=== PATIENT | male | born 1990 | race Caucasian/White ===

== ENCOUNTER 2022-07-25 13:16 | Inpatient (IN) | payer OTHER, SELFPAY ==
[2022-07-25] VITALS (7 sets, daily range): BP systolic 101–103; BP diastolic 54–60; PULSE 98–107; RESP 16–21; TEMP 36.4–36.6; O2SAT 96–100; BMI 23.5
--- NOTE | ~2022-07-25 | XR_ITS ---
EXAMINATION: XR chest 1V portable DATE: 07/27/2022 06:27 INDICATION: Edema. TECHNIQUE: A single frontal view of the chest was obtained. COMPARISON: CT abdomen and pelvis 07/25/2022 FINDINGS: There is mild atelectasis at the lung bases. There is a small left pleural effusion. No pne umothorax. The heart size is normal. IMPRESSION: 1. Mild atelectasis at the lung bases. 2. Small left pleural effusion. Reviewed, dictated and finalized at location A. TAL MEDIA MANAGER
--- NOTE | ~2022-07-25 | CT_ITS ---
EXAMINATION: CT abdomen pelvis wo con DATE: 07/25/2022 15:25 INDICATION: Abdominal pain TECHNIQUE: Computed tomography (CT) of the abdomen and pelvis was performed without intravenous contr ast. Automated exposure control and iterative reconstruction technique were employed. The dose-length product was 324.13 mGy-cm. COMPARISON: None FINDINGS: Small bilateral pleural effusions with dependent compressive atelectasis in the bilateral lower lobes . Additional bandlike discoid atelectasis in the left lower lobe. Heart size is normal. No pericardia l or pleural effusion. Somewhat heterogeneous pattern of diffuse hepatic steatosis relatively sparing segments 3 and 4A and B of the liver. There is suggestion of some liver surface nodularity suspiciou s for cirrhosis however assessment is somewhat limited by the similar density in places between the l iver and the small to moderate amount of ascites scattered throughout the abdomen and pelvis. Gallbla dder, spleen, pancreas, bilateral adrenal glands and kidneys are normal. There is diffuse wall thicke ca the colon which could be due to hepatic colopathy or colitis either infectious, inflammatory or ischemic in etiology. No bowel obstruction. Decompressed bladder is unremarkable. The mesenteric vein s appear prominent which could be due to portal venous hypertension. No pathologically enlarged abdom inal or pelvic lymphadenopathy. There are relatively symmetric small regions of subarticular sclerosi s at the superomedial aspect of the bilateral femoral heads suspicious for osteonecrosis. IMPRESSION: 1. Diffuse hepatic steatosis with suggestion of subtle liver surface nodularity which raises some queta picion for cirrhosis who specificities decreased by the similar density of the liver to the surroundi ng small to moderate amount of ascites. 2. Diffuse colonic wall thickening which could be due to hepatic colopathy or colitis which could be infectious, inflammatory or less likely ischemic in etiology. 3. Subarticular sclerosis at the bilateral femoral heads suspicious for osteonecrosis. Reviewed, dictated and finalized at location A. URE PACKER IMPRESSION: 1. Diffuse hepatic steatosis with suggestion of subtle liver surface nodularity which raises some suspicion for cirrhosis who specificities decreased by the s imilar density of the liver to the surrounding small to moderate amount of asci timothy. 2. Diffuse colonic wall thickening which could be due to hepatic colopathy or c olitis which could be infectious, inflammatory or less likely ischemic in etiol ogy. 3. Subarticular sclerosis at the bilateral femoral heads suspicious for osteone crosis.
--- NOTE | ~2022-07-25 | US_ITS ---
EXAMINATION: US abdomen limited DATE: 07/25/2022 16:27 INDICATION: Elevated transaminases TECHNIQUE: Multiple grayscale and Doppler ultrasound images of limited portions of the abdomen were o btained. COMPARISON: CT abdomen and pelvis, same date. FINDINGS: Pancreas poorly visualized. The liver is enlarged with increased echogenicity and heterogen eous echotexture. Centimeters nodularity. Portal vein flow could not be demonstrated. Borderline wall thickening likely related to chronic liver disease and/or ascites. Minimal pericholecystic fluid lik doug related to ascites. Biliary sludge. The common bile duct measures 5 mm. There was no sonographic Velez sign. Small volume ascites. IMPRESSION: Hepatomegaly with cirrhosis. Portal venous thrombosis. Reviewed, dictated and finalized at location K. NG MACHINE OPERATOR
--- NOTE | ~2022-07-25 | US_ITS ---
EXAMINATION: US renal BI DATE: 07/26/2022 21:23 INDICATION: CESARIO/ARF TECHNIQUE: Multiple grayscale and Doppler ultrasound images of the kidneys were obtained. COMPARISON: CT abdomen pelvis 07/25/2022, limited abdominal ultrasound 07/25/2022. FINDINGS: The right kidney measures 10.2 x 5.9 x 5.9 cm. The left kidney measures 9.9 x 4.6 x 5.2 cm. The kidne ys demonstrate normal parenchymal echogenicity. There is no hydronephrosis. The bladder is poorly vis ualized. Moderate volume ascites. IMPRESSION: Moderate ascites. Otherwise unremarkable renal sonogram findings. Reviewed, dictated and finalized at location K. R RELATIONS MANAGER
--- NOTE | ~2022-07-25 | US_ITS ---
EXAMINATION: US paracentesis abd w/image DATE: 07/27/2022 15:05 INDICATION: Ascites. TECHNIQUE: The procedure and its risks and benefits were discussed with the patient. Potential risks discussed included bleeding and infection. The skin was prepped and draped in sterile fashion. 1% lid ocaine was used for local anesthesia. Under ultrasound guidance, a 5 Fr catheter with trochar was adv anced into the ascites in the midline lower abdomen. Fluid was aspirated into vacuum bottles. The cat heter was removed, and a dressing was applied. There were no immediate complications. FINDINGS: Ultrasound images demonstrate ascites and the catheter within the fluid. IMPRESSION: 1. Successful ultrasound-guided paracentesis yielding 1750 mL of clear yellow fluid. Reviewed, dictated and finalized at location A. IOVASCULAR OR NURSE IMPRESSION: 1. Successful ultrasound-guided paracentesis yielding 1750 mL of clear yellow f luid.
--- NOTE | ~2022-07-25 | XR_ITS ---
EXAMINATION: XR abdomen/kub 1V DATE: 08/01/2022 07:28 INDICATION: Bleeding abdomen. TECHNIQUE: A supine view of the abdomen was obtained. COMPARISON: CT abdomen and pelvis 07/25/2022 FINDINGS: There are no dilated loops of bowel. There is a paucity of stool in the colon. IMPRESSION: 1. Normal bowel gas pattern. Reviewed, dictated and finalized at location A. INTERPRETER
[2022-07-25 14:22] LABS: Basophils Absolute Auto 0.1 K/mm3 (0.0-0.1); Basophils Percent Auto 0.3 % (0.2-1.2); Eosinophils Absolute Auto 0.2 K/mm3 (0-0.3); Hematocrit 39.2 % (42.0-52.0); Hemoglobin 14.4 g/dL (14.0-18.0); Immature Granulocyte Absolute 0.11 K/mm3 (0.00-0.031); Immature Granulocyte Percent A 0.7 % (0-0.5); Lymphocytes Absolute Auto 1.56 K/mm3 (0.9-3.2); Lymphocytes Percent Auto 10.2 % (18.3-44.2); Mean Corpuscular HGB Conc 36.7 g/dl (32-36); Mean Corpuscular Hemoglobin 34.6 pg (26-34); Mean Corpuscular Volume 94.2 fl (80-100); Mean Platelet Volume 9.8 fl (7.4-10.4); Monocytes Absolute Auto 1.5 K/mm3 (0.1-0.6); Monocytes Percent Auto 9.9 % (2.6-8.5); Neutrophils Percent Auto 77.9 % (45.5-73.1); Platelet Count Result 279 k/mm3 (150-375); Red Blood Count 4.16 M/mm3 (4.6-6.20); Red Cell Distribution Width 15.3 % (11.5-14.5); White Blood Count 15.3 K/mm3 (4.5-10.0)
[2022-07-25 14:47] LABS: Alanine Aminotransferase 123 U/L (6-50); Albumin Level 3.2 g/dL (3.5-5.1); Alkaline Phosphatase 205 U/L (38-126); Anion Gap 14 mmol/L (8-16); Aspartate Amino Transferase 258 U/L (17-59); Bilirubin,Total 10.1 mg/dL (0.2-1.3); Blood Urea Nitrogen 21 mg/dL (9-20); Calcium 7.7 mg/dL (8.4-10.2); Carbon Dioxide 29 mmol/L (22-30); Chloride 74 mmol/L (98-107); Estimated CRCL calculation 28 ml/min; Estimated Glomerular Filt Rate 24; Glucose 102 mg/dL (65-110); Lipase 119 U/L (23-300); Potassium 3.3 mmol/L (3.4-5.0); Sodium 117 mmol/L (137-145)
[2022-07-25] MEDS: SODIUM CHLORIDE 0.9% IV 1,000 ML 999 ML IV CONT (15:35)
--- NOTE | 2022-07-25 15:35 | ED.GENADULT ---
HPI - General Adult General Chief complaint: Abdominal Pain Stated complaint: abd pain/bloating Time Seen by Provider: 07/25/22 15:07 History of Present Illness HPI narrative: 31-year-old male presenting to the emergency department for evaluation of decreased p.o. intake for quadrant pain and generalized weakness over the past week and a half. Patient denies any significant past medical history. Patient states he does drink alcohol daily but only drinks 1 to 2 ounces daily. Patient denies any prior history of liver or gallbladder disease. Patient does complain of abdominal fullness and right upper quadrant pain. Related Data Home Medications Medication Instructions Recorded Confirmed ibuprofen 200 mg tablet 200 mg PO Q6H PRN Pain 07/25/22 07/25/22 melatonin 5 mg tablet 5 mg PO HS PRN Sleep 07/25/22 07/25/22 Allergies Allergy/AdvReac Type Severity Reaction Status Date / Time No Known Allergies Allergy Unverified 05/07/14 15:38 Review of Systems Review of Systems: CONSTITUTIONAL: Denies fever, chills, or sweats. EYES: Denies visual changes, redness, or discharge. ENT: Denies rhinorrhea, congestion, sore throat, or otalgia. CARDIOVASCULAR: Denies chest pain, palpitations, or edema. RESPIRATORY: Denies cough or dyspnea. GASTROINTESTINAL: See HPI GENITOURINARY: Denies dysuria or hematuria. SKIN: Denies rash or itching. MUSCULOSKELETAL: Denies back pain, joint pain, or myalgia. NEUROLOGIC: Denies headache, numbness, or weakness. [facility] Past Medical History Medical History (Updated 07/26/22 @ 08:56 by Sharon Howard MD) Alcoholism Continuous tobacco abuse Surgical History Surgical History (Updated 07/26/22 @ 01:54 by Debra Guevara DO) No significant past surgical history Family History Family History (Updated 07/26/22 @ 01:55 by Debra Guevraa DO) Father Malignant neoplasm of prostate, Onset Age: 63 Mother Murder Sibling Healthy adult Social History Social History (Updated 07/26/22 @ 02:00 by Debra Guevara DO) Social History: The patient is single and lives alone. 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 He has drank heavily for several years. He smokes up to 0.75 packs of cigarettes per day since the age of 18. He smokes marijuana weekly. Code status: Full code Smoking packs per day: 0.75 Smoking cigarettes per day: 15.0 Years smoked: 13 Smoking pack-years: 9.75 Smoking status: Current every day smoker Tobacco type: cigarettes Alcohol intake: current Drinks per week: 20 Substance use: current Substance use type: marijuana Lack of Transportation: No Lack of Food: Never True Current Housing: I Have Housing Concerned About Future Housing: No Difficulty Paying Gas/Electric Bills: No Difficulty Paying for Meds: No Currently Unemployed: No Education: High School Diploma/GED Difficulty w/ Childcare or Family Care: No Spiritual care concerns: No Exam Narrative: APPEARANCE: Well appearing, no pain, no distress, well-nourished. HEAD: normocephalic, atraumatic. EYES: Scleral icterus NOSE: Normal no drainage EARS:TMS clear with good light reflex. THROAT: Pharynx clear, no exudate. NECK: Supple. No adenopathy, no masses. RESPIRATORY: Airway patent, respirations nonlabored. Clear to auscultation bilaterally, no rales, rhonchi, wheezing. CARDIOVASCULAR: Regular rate and rhythm without murmurs rubs or gallops. ABDOMINAL: Abdominal distention with upper quadrant tenderness MUSCULOSKELETAL: Moves all extremities. Strength/ROM intact, No edema, No calf tenderness. NEURO: Alert. Cranial nerves II through XII intact. Grossly intact SKIN: Jaundice PSYCHIATRIC: Normal affect/mood. Course Course Emergency Course: Patient was started on 1 L normal saline due to his hyponatremia. Patient has a leukocytosis of 15.3 and patient has blood cultures pending. Patient was star
[2022-07-25 18:24] LABS: Ethanol < 10 mg/dL (<10)
[2022-07-25 18:33] LABS: INR 1.8; Prothrombin Time 20.5 Seconds (11.1-14.7)
[2022-07-25 18:34] LABS: Partial Thromboplastin Time 38.3 SECONDS (22.3-36.8)
[2022-07-25 19:01] LABS: Anion Gap 10 mmol/L (8-16); Blood Urea Nitrogen 21 mg/dL (9-20); Calcium 7.4 mg/dL (8.4-10.2); Carbon Dioxide 32 mmol/L (22-30); Chloride 76 mmol/L (98-107); Estimated CRCL calculation 27 ml/min; Estimated Glomerular Filt Rate 23; Glucose 86 mg/dL (65-110); Potassium 2.7 mmol/L (3.4-5.0); Sodium 118 mmol/L (137-145)
[2022-07-25] MEDS: POTASSIUM CHLORIDE 20 MEQ PACKET (FOR LIQUID) 40 MEQ PO (19:25)
[2022-07-25] MEDS: SODIUM CHLORIDE 0.9% IV 1,000 ML 60 ML IV CONT (19:25)
[2022-07-25] MEDS: KCL 20 MEQ/SW 100 ML 100 ML 50 MEQ IVPB (19:25)
[2022-07-25 20:12] LABS: Influenza A QL RT-PCR Negative (Negative); Influenza B QL RT-PCR Negative (Negative); SARS-CoV-2 RNA PCR Negative
[2022-07-25 20:36] LABS: Magnesium 2.1 mg/dL (1.6-2.3); Phosphorus 4.3 mg/dL (2.5-4.5)
--- NOTE | 2022-07-25 20:41 | PM.IMHP ---
H&P: HPI History of Present Illness Date/Time: 07/25/22 20:41 Chief Complaint: Abdominal bloating Narrative: 31-year-old male with past medical history of alcoholism who presented to the ER with abdominal bloating, nausea and vomiting. The patient reports that he has had decreased appetite for 1 year. He has had 2 weeks of increasing abdominal bloating. He has tried to take Gas-X and MiraLax at home without relief in his symptoms. He is having bowel movements every day but they are small and soft. On exam patient is noted to have marked scleral icterus. He reports that his friend selling a few days ago and did not notice that yellow eyes but reported that when his friend brought him to the ER today he did comment on his yellow eyes. He denies any fevers or chills. He reports that he has been having some mild discomfort in his right upper quadrant that radiates to his back that started 4-5 days ago. The pain is aching in nature. He has taken a few doses of ibuprofen at home without relief in symptoms. He reports that sometimes when he gets up and tries to walk around the pain will ease up. He denies any fevers or chills. He reports that since he knows that he needs the more the few times that he does try to force himself to eat more he ends up having some nausea and vomiting. This is been going on on and off for a couple of months. He denies any family history of liver disease. He initially told the ER staff that he only drinks 1-2 shots a day. Unfortunately the patient actually drinks up to 4 alcoholic beverages a day that have 2-3 fingers (2-3 shots) of alcohol in each drink. He has not had any recent alcohol cessation attempts. He did not think he was drinking alcohol to excess. He states that he has stopped drinking for a few days in a row in the distant past without symptoms of alcohol withdrawal but has not stops drinking any time recently. In the ER the patient was found to be in acute hepatic failure with acute kidney injury, severe hyponatremia and associated hypokalemia. Review of Systems Review of Systems: 12 systems were reviewed with pertinent positives and negatives per HPI. Except as documented in the HPI, all other systems were reviewed and are negative. [facility] Past Medical History Medical History (Updated 07/26/22 @ 02:15 by Debra Guevara DO) Alcoholism Continuous tobacco abuse Surgical History Surgical History (Updated 07/26/22 @ 01:54 by Debra Guevara DO) No significant past surgical history Family History Family History (Updated 07/26/22 @ 01:55 by Debra Guevara DO) Father Malignant neoplasm of prostate, Onset Age: 63 Mother Murder Sibling Healthy adult Social History Social History (Updated 07/26/22 @ 02:00 by Debra Guevara DO) Social History: The patient is single and lives alone. 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 He has drank heavily for several years. He smokes up to 0.75 packs of cigarettes per day since the age of 18. He smokes marijuana weekly. Code status: Full code Smoking packs per day: 0.75 Smoking cigarettes per day: 15.0 Years smoked: 13 Smoking pack-years: 9.75 Smoking status: Current every day smoker Tobacco type: cigarettes Alcohol intake: current Drinks per week: 20 Substance use: current Substance use type: marijuana Lack of Transportation: No Lack of Food: Never True Current Housing: I Have Housing Concerned About Future Housing: No Difficulty Paying Gas/Electric Bills: No Difficulty Paying for Meds: No Currently Unemployed: No Education: High School Diploma/GED Difficulty w/ Childcare or Family Care: No Spiritual care concerns: No Meds Home Medications and Allergies Home Medications Medication Instructions Recorded Confirmed Type ibuprofen 200 mg tablet 200 mg PO Q6H PRN Pain 07/25/22 07/25/22 History melaton
[2022-07-25 22:06] LABS: Add Urine Microscopic? YES; Appearance Urine Slightly Cloudy (Clear); Bilirubin Urine 3+ (Negative); Blood Urine Trace-lysed (Negative); Color Urine Orange (Yellow); Glucose Urine UA Negative (Negative); Ketones Urine 1+ mg/dL (Negative); Leukocyte Esterase Ur Negative LEU/UL (Negative); Nitrate Urine Negative (Negative); Protein Urine 2+ mg/dL (Negative)
[2022-07-25 22:14] LABS: Bacteria Urine Trace /hpf; Hyaline Casts Urine 20-29 /lpf; Mucus Urine Rare /lpf; WBC Urine 21-30 /hpf
[2022-07-25] MEDS: predniSONE 20 MG TABLET 40 MG PO (22:50)
[2022-07-25] MEDS: ENOXAPARIN 60 MG/0.6 ML SYRINGE SUB-Q (23:14)
[2022-07-25 23:57] LABS: Anion Gap 8 mmol/L (8-16); Blood Urea Nitrogen 24 mg/dL (9-20); Calcium 7.2 mg/dL (8.4-10.2); Carbon Dioxide 32 mmol/L (22-30); Chloride 77 mmol/L (98-107); Estimated CRCL calculation 28 ml/min; Estimated Glomerular Filt Rate 23; Glucose 79 mg/dL (65-110); Potassium 3.8 mmol/L (3.4-5.0); Sodium 117 mmol/L (137-145)
[2022-07-26] VITALS (16 sets, daily range): BP systolic 96–104; BP diastolic 53–60; PULSE 91–112; RESP 16–24; TEMP 36.3–36.7; O2SAT 94–99
[2022-07-26 05:05] LABS: Basophils Percent Auto 0.3 % (0.2-1.2); Eosinophils Absolute Auto 0.1 K/mm3 (0-0.3); Eosinophils Percent Auto 0.5 % (0-4.4); Hematocrit 34.9 % (42.0-52.0); Immature Granulocyte Absolute 0.09 K/mm3 (0.00-0.031); Immature Granulocyte Percent A 0.8 % (0-0.5); Lymphocytes Absolute Auto 0.56 K/mm3 (0.9-3.2); Lymphocytes Percent Auto 4.7 % (18.3-44.2); Mean Corpuscular HGB Conc 37.2 g/dl (32-36); Mean Corpuscular Volume 94.1 fl (80-100); Mean Platelet Volume 9.5 fl (7.4-10.4); Monocytes Absolute Auto 0.9 K/mm3 (0.1-0.6); Monocytes Percent Auto 7.2 % (2.6-8.5); Neutrophils Absolute Auto 10.4 K/mm3 (1.3-6.7); Neutrophils Percent Auto 86.5 % (45.5-73.1); Platelet Count Result 232 k/mm3 (150-375); Red Blood Count 3.71 M/mm3 (4.6-6.20); Red Cell Distribution Width 15.5 % (11.5-14.5)
--- NOTE | 2022-07-26 05:06 | ADMGEN ---
This patient, Micky Goel, was admitted to IMU Room 212-01. Patient/family oriented to hospital policies and general routines including ID bracelet, bed and alarms, visiting hours, pain management, procedures, bathroom and other care routines, personal items, smoking policy, room service/diet, and visiting hours. Information on how to activate the Rapid Response Team has been discussed. Patient/Family are encouraged to report perceived risks to care and to ask questions if they do not understand what they are told or what they should do.
[2022-07-26 05:13] LABS: Ammonia 36 umol/L (9-30)
[2022-07-26 05:14] LABS: INR 2.4
[2022-07-26 05:15] LABS: Alanine Aminotransferase 109 U/L (6-50); Albumin Level 2.5 g/dL (3.5-5.1); Alkaline Phosphatase 169 U/L (38-126); Anion Gap 7 mmol/L (8-16); Aspartate Amino Transferase 202 U/L (17-59); Blood Urea Nitrogen 25 mg/dL (9-20); Calcium 7.1 mg/dL (8.4-10.2); Carbon Dioxide 33 mmol/L (22-30); Chloride 81 mmol/L (98-107); Estimated CRCL calculation 26 ml/min; Estimated Glomerular Filt Rate 21; Glucose 108 mg/dL (65-110); Magnesium 1.9 mg/dL (1.6-2.3); Phosphorus 3.8 mg/dL (2.5-4.5); Potassium 3.9 mmol/L (3.4-5.0); Sodium 121 mmol/L (137-145)
[2022-07-26 05:17] LABS: CRP 2.8 mg/dL (<1.0); Creatine Kinase 42 U/L (55-170)
[2022-07-26 06:01] LABS: Hepatitis B Surface Antigen Negative (Negative)
[2022-07-26 06:07] LABS: HAV RESULT Negative (Negative); Hepatitis B Core IgM Result Negative (Negative)
[2022-07-26 06:19] LABS: Hepatitis C Virus Antibody Negative (Negative)
[2022-07-26 06:22] LABS: Folic Acid 4.2 ng/mL (2.76->20); Vitamin B12 > 1000.0 pg/mL (239-931)
--- NOTE | 2022-07-26 07:18 | WPDGICN ---
Assessment and Plan Assessment and plan (1) Acute hepatic failure: Qualifiers: Hepatic coma status: without hepatic coma Qualified Code(s): K72.00 - Acute and subacute hepatic failure without coma Code(s): K72.00 - Acute and subacute hepatic failure without coma Status: Acute Assessment and Plan: he has elevation of his bilirubin, pro time, transaminases and also ammonia level. We can hope that this is acute alcoholic hepatitis and that these parameters will improve. It will take a few days before it is clear Whether that is the case. He has been started on prednisone 40 mg daily. (2) Hepatorenal syndrome: Code(s): K76.7 - Hepatorenal syndrome Status: Acute Assessment and Plan: Creatinine is over 3. He is being seen by Nephrology. (3) CESARIO (acute kidney injury): Code(s): N17.9 - Acute kidney failure, unspecified Status: Acute Assessment and Plan: creatinine was 3 yesterday and today up to 3.4. (4) Serum total bilirubin elevated: Code(s): R17 - Unspecified jaundice Status: Acute Assessment and Plan: Yesterday bilirubin was 10.1. Up to 11 today he denies pruritus. Hepatitis serology has been done and is negative. (5) Portal vein thrombosis: Code(s): I81 - Portal vein thrombosis Status: Acute (6) Alcohol abuse: Code(s): F10.10 - Alcohol abuse, uncomplicated Status: Acute Assessment and Plan: He does admit to drinking most of the day in the fact that is his primary source of nutrition. He eats very little, never breakfast or lunch. He is alert this morning but we will need to continue to observe for possible hepatorenal syndrome. (7) Acute hyponatremia: Code(s): E87.1 - Hypo-osmolality and hyponatremia Status: Acute Assessment and Plan: Initial sodium was 117. Today it is up to 121 GI Consult Note Consult date/time: 07/26/22 07:18 HPI: Micky Goel is a 31 year old male who was admitted alcoholic who presents to the emergency room with increasing nausea and poor appetite. He is denying any abdominal pain. He states that he was not aware that his eyes were turning yellow until his friend noted it in the emergency room yesterday. He denies any prior history of liver disease jaundice hepatitis or pancreatic disease. He admits he does not eat breakfast or lunch in fact he picks at food but eats very little. Surprisingly, he states that he has not lost weight but actually gained a few lb this year. He was initially vague about how much alcohol use he drinks, for stating he has 1 or 2 shots a day and then later admitting that he drinks a little less than a bottle each day. Here for [place] has been found have markedly elevated liver enzymes, bilirubin over 10, creatinine greater than 3 and severe hyponatremia. Nephrology is addressing the renal issues and electrolyte abnormalities. He states that he has never been hospitalized with a liver related or alcohol-related problem in the past. Review of Systems Review of Systems: All systems reviewed & are unremarkable except as noted in HPI and below PMFSH Past Medical History Medical History (Updated 07/26/22 @ 02:15 by Debra Guevara DO) Alcoholism Continuous tobacco abuse Surgical History Surgical History (Updated 07/26/22 @ 01:54 by Debra Guevara DO) No significant past surgical history Family History Family History (Updated 07/26/22 @ 01:55 by Debra Guevara DO) Father Malignant neoplasm of prostate, Onset Age: 63 Mother Murder Sibling Healthy adult Social History Social History (Updated 07/26/22 @ 02:00 by Debra Guevara DO) Social History: The patient is single and lives alone. 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 He has drank heavily for several years. He smokes up to 0.75 packs of cigarettes per day since
[2022-07-26] MEDS: NICOTINE (*PBKC) 21 MG PATCH 1 PATCH TRANSDERM (08:33)
[2022-07-26] MEDS: THIAMINE HCL 100 MG TABLET PO (08:33)
--- NOTE | 2022-07-26 08:53 | P.CONNP_ITS ---
Assessment and Plan Assessment and plan (1) CESARIO (acute kidney injury): Code(s): N17.9 - Acute kidney failure, unspecified Status: Acute Assessment and Plan: * unclear baseline renal function -- assuming normal in the past * suspect a component of prerenal azotemia (since only source of nutrition has been alcohol) * however, his liver dysfunction may have precipitated possible hepatorenal syndrome as well * check urine electrolytes as well as serological studies * check renal ultrasound (although CT scan did note any anatomical issues with kidneys) * gentle IVF hydration for now * closely follow I/Os as he is at risk for volume overload given both his CESARIO and liver dysfunction * follow repeat labs and UOP (2) Hyponatremia: Code(s): E87.1 - Hypo-osmolality and hyponatremia Status: Acute Assessment and Plan: * acute versus chronic versus acute on chronic?? -- no previous labs for comparison * this is further complicated by his presumed CESARIO and presumed acute liver injury * both conditions can lead to hyponatremia * mild improvement noted with normal saline IVFs * this argues in favor of a component of prerenal azotemia * TSH okay * check urine electrolytes, serum/urine osmolality, cortisol level, and SPEP/UPEP * follow trend of repeat sodium levels * given his liver/kidney dysfunction, will need to keep a close eye on his volume status * he may eventually require fluid restriction (3) Acute hepatic failure: Qualifiers: Hepatic coma status: without hepatic coma Qualified Code(s): K72.00 - Acute and subacute hepatic failure without coma Code(s): K72.00 - Acute and subacute hepatic failure without coma Status: Acute Assessment and Plan: * quite severe as noted by elevated LFTs, bilirubin, and ammonia level * started on steroids on the hope this acute alcohol hepatitis * Gastroenterology recommendations noted (4) Portal vein thrombosis: Code(s): I81 - Portal vein thrombosis Status: Acute Assessment and Plan: * as noted by imaging * need for anticoagulation(?) (5) Alcohol abuse: Code(s): F10.10 - Alcohol abuse, uncomplicated Status: Acute Assessment and Plan: * on thiamine and folate * monitor for signs of withdrawal > 20 minutes History of Present Illness Reason for Consult Consult date: 07/26/22 Reason for consult: acute renal failure Chief Complaint Chief complaint: Cirrhosis, CESARIO, hyponatremia History of Present Illness Narrative: The patient is a 31-year-old male with a past medical history as outlined below who presented to [facility] Emergency room with complaints of abdominal bloating, nausea, and vomiting. The patient states that he has had a decreased appetite for the last year. He reports that the abdominal bloating nausea and vomiting seem to start about 2 weeks ago and has progressively worsened up until this time. He tried over-the- counter medications with regard to Gas-X and MiraLax but this did not relieve his symptoms. He does report having bowel movements every day and has not had any issues or problems with constipation. Given the persistence of the a for mentioned symptoms as mentioned above, he presented to the emergency room for further assessment. Workup and evaluation in the emergency room demonstrated the patient have a marked scleral icterus and mild distension on abdominal exam. He was relatively hypotensive but did not appear have any issues with dizziness or lightheadedness. Routine blood
--- NOTE | 2022-07-26 08:53 | PM.CNNEP ---
Assessment and Plan Assessment and plan (1) CESARIO (acute kidney injury): Code(s): N17.9 - Acute kidney failure, unspecified Status: Acute Assessment and Plan: unclear baseline renal function -- assuming normal in the past suspect a component of prerenal azotemia (since only source of nutrition has been alcohol) however, his liver dysfunction may have precipitated possible hepatorenal syndrome as well check urine electrolytes as well as serological studies check renal ultrasound (although CT scan did note any anatomical issues with kidneys) gentle IVF hydration for now closely follow I/Os as he is at risk for volume overload given both his CESARIO and liver dysfunction follow repeat labs and UOP (2) Hyponatremia: Code(s): E87.1 - Hypo-osmolality and hyponatremia Status: Acute Assessment and Plan: acute versus chronic versus acute on chronic?? -- no previous labs for comparison this is further complicated by his presumed CESARIO and presumed acute liver injury both conditions can lead to hyponatremia mild improvement noted with normal saline IVFs this argues in favor of a component of prerenal azotemia TSH okay check urine electrolytes, serum/urine osmolality, cortisol level, and SPEP/UPEP follow trend of repeat sodium levels given his liver/kidney dysfunction, will need to keep a close eye on his volume status he may eventually require fluid restriction (3) Acute hepatic failure: Qualifiers: Hepatic coma status: without hepatic coma Qualified Code(s): K72.00 - Acute and subacute hepatic failure without coma Code(s): K72.00 - Acute and subacute hepatic failure without coma Status: Acute Assessment and Plan: quite severe as noted by elevated LFTs, bilirubin, and ammonia level started on steroids on the hope this acute alcohol hepatitis Gastroenterology recommendations noted (4) Portal vein thrombosis: Code(s): I81 - Portal vein thrombosis Status: Acute Assessment and Plan: as noted by imaging need for anticoagulation(?) (5) Alcohol abuse: Code(s): F10.10 - Alcohol abuse, uncomplicated Status: Acute Assessment and Plan: on thiamine and folate monitor for signs of withdrawal > 20 minutes History of Present Illness Reason for Consult Consult date: 07/26/22 Reason for consult: acute renal failure Chief Complaint Chief complaint: Cirrhosis, CESARIO, hyponatremia History of Present Illness Narrative: The patient is a 31-year-old male with a past medical history as outlined below who presented to [facility] Emergency room with complaints of abdominal bloating, nausea, and vomiting. The patient states that he has had a decreased appetite for the last year. He reports that the abdominal bloating nausea and vomiting seem to start about 2 weeks ago and has progressively worsened up until this time. He tried [id number] medications with regard to Gas-X and MiraLax but this did not relieve his symptoms. He does report having bowel movements every day and has not had any issues or problems with constipation. Given the persistence of the a for mentioned symptoms as mentioned above, he presented to the emergency room for further assessment. Workup and evaluation in the emergency room demonstrated the patient have a marked scleral icterus and mild distension on abdominal exam. He was relatively hypotensive but did not appear have any issues with dizziness or lightheadedness. Routine blood test demonstrated a significant injury to his kidney as well as elevated liver function tests, bilirubin, as well as INR argue in favor of acute liver disease as well. Along with acute kidney injury, he had market hypokalemia and severe hyponatremia as well. On further questioning he did report that he has been drinking up to 4-7 drinks a day for the last several years. He reported no family history of liver
[2022-07-26] MEDS: predniSONE 20 MG TABLET 40 MG PO (09:13)
[2022-07-26 10:25] LABS: Anion Gap 7 mmol/L (8-16); Blood Urea Nitrogen 27 mg/dL (9-20); Calcium 7.2 mg/dL (8.4-10.2); Carbon Dioxide 33 mmol/L (22-30); Chloride 81 mmol/L (98-107); Estimated CRCL calculation 25 ml/min; Estimated Glomerular Filt Rate 20; Glucose 117 mg/dL (65-110); Potassium 4.2 mmol/L (3.4-5.0); Sodium 121 mmol/L (137-145)
[2022-07-26 12:34] LABS: Total Protein Urine Random 25 mg/dL
[2022-07-26 12:48] LABS: Sodium Urine Random < 5 meq/L
[2022-07-26 13:28] LABS: Creatinine Urine 395.5 mg/dL; Ur Ttl Prot Creatinine Ratio 0.06 mg/mg (0-0.20)
[2022-07-26 14:15] LABS: Eosinophil Urine None Seen % (None Seen)
[2022-07-26 14:35] LABS: Anion Gap 6 mmol/L (8-16); Blood Urea Nitrogen 29 mg/dL (9-20); Calcium 7.2 mg/dL (8.4-10.2); Carbon Dioxide 32 mmol/L (22-30); Chloride 80 mmol/L (98-107); Estimated CRCL calculation 25 ml/min; Estimated Glomerular Filt Rate 20; Glucose 130 mg/dL (65-110); Potassium 3.7 mmol/L (3.4-5.0); Sodium 118 mmol/L (137-145)
[2022-07-26] MEDS: SODIUM CHLORIDE 0.9% IV 1,000 ML 75 ML IV CONT (15:00)
--- NOTE | 2022-07-26 17:37 | PM.IMPN ---
Progress Note: A&P Assessment and Plan (1) Acute hepatic failure: Qualifiers: Hepatic coma status: without hepatic coma Qualified Code(s): K72.00 - Acute and subacute hepatic failure without coma Code(s): K72.00 - Acute and subacute hepatic failure without coma Status: Acute Assessment and Plan: Patient presents with complaints of nausea, vomiting and abdominal bloating and found to have AST 258, ALT [address] A/P showing diffuse hepatic steatosis and concerning for ascites. RUQ US showing hepatomegaly with cirrhosis and protal venous thrombosis. Cirrhosis felt related to alcoholism but he is young so consider an underlying etiology for his liver failure as well. The patient's discriminant function is elevated at 36 is consistent with poor prognosis patient's meld score is also 36 and a indicates a greater than 50% chance of mortality in the next 3 months. The patient has been started on p.o. prednisone due to his discriminant Function index. Work up in process. Influenza, COVID negative. Hepatitis panel negative. Supportive care. Check iron studies, ect. (2) CESARIO (acute kidney injury): Code(s): N17.9 - Acute kidney failure, unspecified Status: Acute Assessment and Plan: Cr 3.0 on admission and has climbed today to 3.5. Suspect hepatorenal syndrome. CT showing normal kidneys. Workup started. Nephrology consulted and appreciate their input. Monitor in ICU (3) Hepatorenal syndrome: Code(s): K76.7 - Hepatorenal syndrome Status: Acute Assessment and Plan: As above (4) Acute hyponatremia: Code(s): E87.1 - Hypo-osmolality and hyponatremia Status: Acute Assessment and Plan: Hyponatremia on admission at 117 and is likely due to chronic alcohol use in setting of cirrhosis. IV fluids started. May worsen his ascites. Will continue to monitor serial sodiums every 4 hours. Nephrology managing. (5) Portal vein thrombosis: Code(s): I81 - Portal vein thrombosis Status: Acute Assessment and Plan: The patient has acute portal venous thrombus and received 1 dose of therapeutic Lovenox in the ER. The dose of Lovenox should cover the patient for 24 hours given his current acute kidney injury. Will add Heparin drip. Will re-check PTT but may joseph to hold heparin bolus. RN to call results. Monitor HH closely. (6) Cirrhosis of liver with ascites: Qualifiers: Hepatic cirrhosis type: alcoholic cirrhosis Qualified Code(s): K70.31 - Alcoholic cirrhosis of liver with ascites Code(s): K74.60 - Unspecified cirrhosis of liver; R18.8 - Other ascites Status: Acute Assessment and Plan: Patient with cirrhosis with ascites and possible portal venous HTN. Consider SBP but felt less likely. Etiology felt to be related to alcoholism but consider other etiologies given his age. He was educated about the benefits of abstaining from alcohol. (7) Colitis: Code(s): K52.9 - Noninfective gastroenteritis and colitis, unspecified Status: Acute Assessment and Plan: CT scan showing diffuse wall thickening. Suspect related to edema from liver failure and not infectious but he is now on Zosyn. BCx pending. Follow (8) Alcohol abuse: Code(s): F10.10 - Alcohol abuse, uncomplicated Status: Acute Assessment and Plan: [place] was educated about the benefits of abstaining from alcohol. CIWA protocol started. Thiamine started. Add Folate. (9) Acute hypokalemia: Code(s): E87.6 - Hypokalemia Status: Acute Assessment and Plan: Potassium low at 2.7 but normal now aftre replacement. Follow (10) Osteonecrosis: Code(s): M87.9 - Osteonecrosis, unspecified Status: Acute Assessment and Plan: Etiology unclear but probably related to above. (11) Continuous tobacco abuse: Code(s): Z72.0 - Tobacco use Status: Acute Subjective
[2022-07-26 19:26] LABS: Anion Gap 8 mmol/L (8-16); Blood Urea Nitrogen 30 mg/dL (9-20); Calcium 7.2 mg/dL (8.4-10.2); Carbon Dioxide 32 mmol/L (22-30); Chloride 79 mmol/L (98-107); Estimated CRCL calculation 25 ml/min; Estimated Glomerular Filt Rate 20; Glucose 117 mg/dL (65-110); Potassium 3.6 mmol/L (3.4-5.0); Sodium 119 mmol/L (137-145)
[2022-07-26 19:29] LABS: INR 2.1; Prothrombin Time 23.1 Seconds (11.1-14.7)
[2022-07-26 19:31] LABS: Partial Thromboplastin Time 44.8 SECONDS (22.3-36.8)
[2022-07-26] MEDS: HEPARIN SOD/D5W 100 UNITS/ML 25,000 UNITS/250 ML BAG 6 UNITS IV CONT (20:36)
[2022-07-26 23:04] LABS: Sodium 123 mmol/L (137-145)
[2022-07-27] VITALS (17 sets, daily range): BP systolic 94–158; BP diastolic 58–87; PULSE 97–113; RESP 18–20; TEMP 36.7–37.1; O2SAT 92–100
[2022-07-27 03:42] LABS: Basophils Percent Auto 0.2 % (0.2-1.2); Eosinophils Percent Auto 0.1 % (0-4.4); Hematocrit 35.9 % (42.0-52.0); Hemoglobin 13.3 g/dL (14.0-18.0); Lymphocytes Percent Auto 6.8 % (18.3-44.2); Mean Corpuscular Hemoglobin 35.2 pg (26-34); Mean Platelet Volume 9.7 fl (7.4-10.4); Monocytes Absolute Auto 2.1 K/mm3 (0.1-0.6); Neutrophils Absolute Auto 15.5 K/mm3 (1.3-6.7); Neutrophils Percent Auto 80.9 % (45.5-73.1); Platelet Count Result 263 k/mm3 (150-375); Red Blood Count 3.78 M/mm3 (4.6-6.20); Red Cell Distribution Width 15.9 % (11.5-14.5); White Blood Count 19.2 K/mm3 (4.5-10.0)
[2022-07-27 03:46] LABS: Ammonia 23 umol/L (9-30)
[2022-07-27 03:53] LABS: INR 2.2; Prothrombin Time 23.5 Seconds (11.1-14.7)
[2022-07-27 03:55] LABS: Partial Thromboplastin Time 69.7 SECONDS (22.3-36.8)
[2022-07-27 04:00] LABS: Complement C3 44 mg/dL (88-165)
[2022-07-27 04:01] LABS: Alanine Aminotransferase 112 U/L (6-50); Albumin Level 2.8 g/dL (3.5-5.1); Alkaline Phosphatase 172 U/L (38-126); Anion Gap 8 mmol/L (8-16); Aspartate Amino Transferase 190 U/L (17-59); Blood Urea Nitrogen 32 mg/dL (9-20); Calcium 7.1 mg/dL (8.4-10.2); Carbon Dioxide 31 mmol/L (22-30); Chloride 81 mmol/L (98-107); Estimated CRCL calculation 24 ml/min; Estimated Glomerular Filt Rate 19; Glucose 103 mg/dL (65-110); Phosphorus 4.3 mg/dL (2.5-4.5); Potassium 3.5 mmol/L (3.4-5.0); Sodium 120 mmol/L (137-145)
[2022-07-27 04:02] LABS: Bilirubin Direct 3.7 mg/dL (0-0.3)
[2022-07-27 04:21] LABS: Iron 52 ug/dL (49-181)
[2022-07-27] MEDS: HEPARIN SODIUM 5,000 UNITS/ML VIAL 2500 UNITS IV PUSH (04:24)
[2022-07-27] MEDS: SODIUM CHLORIDE 0.9% IV 1,000 ML 75 ML IV CONT (04:24)
[2022-07-27 04:31] LABS: Percent Iron Saturation 42 % (20-50)
[2022-07-27] MEDS: NICOTINE (*PBKC) 21 MG PATCH 1 PATCH TRANSDERM (08:33)
[2022-07-27] MEDS: THIAMINE HCL 100 MG TABLET PO (08:53)
[2022-07-27] MEDS: FOLIC ACID 1 MG TABLET PO (08:53)
[2022-07-27] MEDS: predniSONE 20 MG TABLET 40 MG PO (08:53)
[2022-07-27 10:45] LABS: Anion Gap 7 mmol/L (8-16); Blood Urea Nitrogen 33 mg/dL (9-20); Carbon Dioxide 30 mmol/L (22-30); Chloride 82 mmol/L (98-107); Estimated CRCL calculation 24 ml/min; Estimated Glomerular Filt Rate 20; Glucose 94 mg/dL (65-110); Potassium 3.4 mmol/L (3.4-5.0); Sodium 119 mmol/L (137-145)
--- NOTE | 2022-07-27 10:47 | PM.IMPN ---
Progress Note: A&P Assessment and Plan (1) Acute hepatic failure: Qualifiers: Hepatic coma status: without hepatic coma Qualified Code(s): K72.00 - Acute and subacute hepatic failure without coma Code(s): K72.00 - Acute and subacute hepatic failure without coma Status: Acute Assessment and Plan: Patient presents with complaints of nausea, vomiting and abdominal bloating and found to have AST 258 > ALT 123 and TB 10.1. Cirrhosis felt related to alcoholism but he is young so consider an underlying etiology for his liver failure as well. -CT A/P showing diffuse hepatic steatosis and ascites. -RUQ US showing hepatomegaly with cirrhosis and protal venous thrombosis. -Discriminant function 36. Meld score 36. Prednisone started -Influenza, COVID negative. -Hepatitis panel negative. HepB core total pending -Iron 52, TIBC 123 42% sat with Ferritin 1260 c/w cirrhosis and iron overload -Renal US showing moderate ascites -LFTs improving. TB 9.0 (3.7 direct) -Work up for the liver failure in progress. -proceed with diagnostic/therapeutic paracentesis -Continue supportive care. (2) CESARIO (acute kidney injury): Code(s): N17.9 - Acute kidney failure, unspecified Status: Acute Assessment and Plan: Cr 3.0 on admission and has climbed to 3.7. Suspect hepatorenal syndrome. -CT showing normal kidneys. -Renal US showing normal appearing kidneys. -C3 and C4 low related to liver dysfunction -Urine eos negative. Urine Prot/Cr 0.06, Chata <5. Other testing pending. Nephrology consulted and appreciate their input. Monitor in IMU (3) Hepatorenal syndrome: Code(s): K76.7 - Hepatorenal syndrome Status: Acute Assessment and Plan: As above (4) Acute hyponatremia: Code(s): E87.1 - Hypo-osmolality and hyponatremia Status: Acute Assessment and Plan: Hyponatremia on admission at 117 and is likely due to chronic alcohol use in setting of cirrhosis. Started on IV fluids but now stopped. Sodium better at 120. Will continue to monitor serial sodium levels. Nephrology managing. (5) Portal vein thrombosis: Code(s): I81 - Portal vein thrombosis Status: Acute Assessment and Plan: The patient has portal venous thrombus and received 1 dose of therapeutic Lovenox in the ER. The dose of Lovenox covered him for 24 hours given CESARIO. Heparin drip added without bolus. Discussed with GI. Tolerating Heparin drip. HH stable. Monitor HH closely. (6) Cirrhosis of liver with ascites: Qualifiers: Hepatic cirrhosis type: alcoholic cirrhosis Qualified Code(s): K70.31 - Alcoholic cirrhosis of liver with ascites Code(s): K74.60 - Unspecified cirrhosis of liver; R18.8 - Other ascites Status: Acute Assessment and Plan: Patient with cirrhosis with ascites and possible portal venous HTN. Etiology felt to be related to alcoholism but consider other etiologies given his age. He was educated about the benefits of abstaining from alcohol. Paracentesis planned. (7) Colitis: Code(s): K52.9 - Noninfective gastroenteritis and colitis, unspecified Status: Acute Assessment and Plan: CT scan showing diffuse wall thickening. Suspect related to edema from liver failure and not infectious but he is now on Zosyn. BCx pending. Follow. (8) Alcohol abuse: Code(s): F10.10 - Alcohol abuse, uncomplicated Status: Acute Assessment and Plan: Patient was educated about the benefits of abstaining from alcohol. No signs or symptoms of withdrawal. CIWA score 0; continue CIWA protocol. Continue Thiamine and Folate. (9) Acute hypokalemia: Code(s): E87.6 - Hypokalemia Status: Acute Assessment and Plan: Potassium low at 2.7 but normal now after replacement. Follow (10) Osteonecrosis: Code(s): M87.9 - Osteonecrosis, unspecified Status: Acute Assessment and Plan: Etiology
--- NOTE | 2022-07-27 12:44 | PM.PNNEP ---
Progress Note: A&P Assessment and Plan (1) CESARIO (acute kidney injury): Code(s): N17.9 - Acute kidney failure, unspecified Status: Acute Assessment and Plan: unclear baseline renal function -- assuming normal prior to admission suspect a component of prerenal azotemia (since only source of nutrition has been alcohol) however, his liver dysfunction may have precipitated possible hepatorenal syndrome as well evaluation to date: urine electroltyes prerenal -- due to volume depleion versus liver physiology versus both(?) renal ultrasound unremarkable urine eosinophils negative no proteinuria low complements but other serologies pending tolerating gentle IVF hydration but no real significant improvement in creatinine/renal function follow repeat labs and UOP (2) Hyponatremia: Code(s): E87.1 - Hypo-osmolality and hyponatremia Status: Acute Assessment and Plan: acute versus chronic versus acute on chronic?? -- no previous labs for comparison this is further complicated by his presumed CESARIO and presumed acute liver injury both conditions can lead to hyponatremia only mild improvement noted with normal saline IVFs TSH and cortisol okay; serum/urine osmolality and SPEP/UPEP pending suspect chronic alcohol use in the setting of liver cirrhosis to blame -- however, cannot discount CESARIO playing a role as wel follow trend of sodium level (3) Acute hepatic failure: Qualifiers: Hepatic coma status: without hepatic coma Qualified Code(s): K72.00 - Acute and subacute hepatic failure without coma Code(s): K72.00 - Acute and subacute hepatic failure without coma Status: Acute Assessment and Plan: quite severe as noted by elevated LFTs, bilirubin, and ammonia level started on steroids on the hope this is acute alcohol hepatitis Gastroenterology recommendations noted (4) Portal vein thrombosis: Code(s): I81 - Portal vein thrombosis Status: Acute Assessment and Plan: as noted by imaging INR elevated already on heparin gtt (5) Alcohol abuse: Code(s): F10.10 - Alcohol abuse, uncomplicated Status: Acute Assessment and Plan: on thiamine and folate monitor for signs of withdrawal Will continue to follow. Subjective Date/time seen: 07/27/22 12:44 No acute issues or problems aside for difficulty sleeping overnight; serial labs demonstrate ongoing fluctuations in sodium as as well as renal function; noted plans for possible EGD and paracentesis today. Exam Narrative: General: WD/WN in NAD Heart: normal S1 and S2; no rub Lungs: clear to auscultation Abdomen: soft with mild distension, positive bowel sounds Extremities: no cyanosis or clubbing; trace edema Skin: warm and dry Objective Data Vital Signs Vital Signs: Vital Signs Temp Pulse Pulse Resp BP Pulse Ox O2 Del Method 07/27/22 12:30 98.2 F 110 H 18 104/66 92 07/27/22 12:00 Room Air 07/27/22 10:00 105 H 07/27/22 08:00 103 H 07/27/22 08:00 Room Air 07/27/22 08:08 98.6 F 107 H 18 96/58 L 94 07/27/22 05:43 102 H 07/27/22 04:00 98.0 F 113 H 20 102/67 97 07/27/22 04:00 105 H 20 95 Room Air 07/27/22 04:00 97 96/59 L 07/27/22 04:00 97 07/27/22 02:00 101 H 07/27/22 00:00 105 H 20 95 Room Air 07/27/22 00:00 105 H 96/59 L 07/27/22 00:00 105 H 07/26/22 23:54 98.0 F 91 20 96/59 L 95 Intake/Output Intake/Output: Intake & Output 07/24/22 07/25/22 07/26/22 07/27/22 23:59 23:59 23:59 23:59 Intake Total 1150 1740 2570 Output Total 80 1900 Balance 1150 1660 670 Meds/Results Medications: Active Medications Generic Name Dose Route Start Last Admin Trade Name Prasanth PRN Reason Stop Dose Admin Folic Acid 1 mg 07/27/22 09:00 07/27/22 08:53 Folic Acid 1 Mg Tablet PO 1 mg DAILY JERRY
--- NOTE | 2022-07-27 12:44 | P.PNNP_ITS ---
Progress Note: A&P Assessment and Plan (1) CESARIO (acute kidney injury): Code(s): N17.9 - Acute kidney failure, unspecified Status: Acute Assessment and Plan: * unclear baseline renal function -- assuming normal prior to admission * suspect a component of prerenal azotemia (since only source of nutrition has been alcohol) * however, his liver dysfunction may have precipitated possible hepatorenal syndrome as well * evaluation to date: * urine electroltyes prerenal -- due to volume depleion versus liver physiology versus both(?) * renal ultrasound unremarkable * urine eosinophils negative * no proteinuria * low complements but other serologies pending * tolerating gentle IVF hydration but no real significant improvement in creatinine/renal function * follow repeat labs and UOP (2) Hyponatremia: Code(s): E87.1 - Hypo-osmolality and hyponatremia Status: Acute Assessment and Plan: * acute versus chronic versus acute on chronic?? -- no previous labs for julisa tam * this is further complicated by his presumed CESARIO and presumed acute liver injury * both conditions can lead to hyponatremia * only mild improvement noted with normal saline IVFs * TSH and cortisol okay; serum/urine osmolality and SPEP/UPEP pending * suspect chronic alcohol use in the setting of liver cirrhosis to blame -- however, cannot discount CESARIO playing a role as wel * follow trend of sodium level (3) Acute hepatic failure: Qualifiers: Hepatic coma status: without hepatic coma Qualified Code(s): K72.00 - Acute and subacute hepatic failure without coma Code(s): K72.00 - Acute and subacute hepatic failure without coma Status: Acute Assessment and Plan: * quite severe as noted by elevated LFTs, bilirubin, and ammonia level * started on steroids on the hope this is acute alcohol hepatitis * Gastroenterology recommendations noted (4) Portal vein thrombosis: Code(s): I81 - Portal vein thrombosis Status: Acute Assessment and Plan: * as noted by imaging * INR elevated already * on heparin gtt (5) Alcohol abuse: Code(s): F10.10 - Alcohol abuse, uncomplicated Status: Acute Assessment and Plan: * on thiamine and folate * monitor for signs of withdrawal Will continue to follow. Subjective Date/time seen: 07/27/22 12:44 No acute issues or problems aside for difficulty sleeping overnight; serial labs demonstrate ongoing fluctuations in sodium as as well as renal function; noted plans for possible EGD and paracentesis today. Exam Narrative: General: WD/WN in NAD Heart: normal S1 and S2; no rub Lungs: clear to auscultation Abdomen: soft with mild distension, positive bowel sounds Extremities: no cyanosis or clubbing; trace edema Skin: warm and dry Objective Data Vital Signs Vital Signs: Vital Signs Temp Pulse Pulse Resp BP Pulse Ox O2 Del Method 07/27/22 12:30 98.2 F 110 H 18 104/66 92 07/27/22 12:00 Room Air 07/27/22 10:00 105 H 07/27/22 08:00 103 H 07/27/22 08:00 Room Air 07/27/22 08:08 98.6 F 107 H 18 96/58 L 94 07/27/22 05:43 102 H 07/27/22 04:00 98.0 F 113 H 20 102/67 97 07/27/22 04:00 105 H 20 95 Room Air 07/27/22 04:00 97 96/59 L
--- NOTE | 2022-07-27 14:38 | WPDGIPROGNO ---
Progress Note: A&P Assessment and Plan (1) Acute hepatic failure: Qualifiers: Hepatic coma status: without hepatic coma Qualified Code(s): K72.00 - Acute and subacute hepatic failure without coma Code(s): K72.00 - Acute and subacute hepatic failure without coma Status: Acute Assessment and Plan: he has elevation of his bilirubin, pro time, transaminases and also ammonia level. We can hope that this is acute alcoholic hepatitis and that these parameters will improve. It will take a few days before it is clear Whether that is the case. He has been started on prednisone 40 mg daily. (2) Hepatorenal syndrome: Code(s): K76.7 - Hepatorenal syndrome Status: Acute Assessment and Plan: Creatinine is over 3. He is being seen by Nephrology. his creatinine is stable at 3 point 6 (3) CESARIO (acute kidney injury): Code(s): N17.9 - Acute kidney failure, unspecified Status: Acute Assessment and Plan: creatinine was 3 yesterday and today up to 3.4. nephrology is managing his fluids and electrolytes. (4) Serum total bilirubin elevated: Code(s): R17 - Unspecified jaundice Status: Acute Assessment and Plan: Yesterday bilirubin was 10.1. Up to 11 today he denies pruritus. Hepatitis serology has been done and is negative. 07/27/2022 bilirubin has dropped to 9.0 (5) Portal vein thrombosis: Code(s): I81 - Portal vein thrombosis Status: Acute Assessment and Plan: this has been discussed with Dr. Jean-Baptiste. Although he does have a prolonged protime. Is felt that heparin, at least the somewhat low does would be helpful to help with his portal vein thrombosis, if it is acute he has shown no signs of bleeding so far. The plan is to perform an EGD with treatment if any indicated of esophageal varices. Because of his hyponatremia however anesthesia feels that he is at too great a risk for the procedure today (6) Alcohol abuse: Code(s): F10.10 - Alcohol abuse, uncomplicated Status: Acute Assessment and Plan: He does admit to drinking most of the day in the fact that is his primary source of nutrition. He eats very little, never breakfast or lunch. He is alert this morning but we will need to continue to observe for possible hepatorenal syndrome. (7) Acute hyponatremia: Code(s): E87.1 - Hypo-osmolality and hyponatremia Status: Acute Assessment and Plan: Initial sodium was 117. Today it is up to 121 07/27/2022 his sodium unfortunately has dropped back down to 119. Consequently EGD is canceled. Subjective Date/time seen: Micky Goel is a 31 year old male? who was admitted alcoholic who presents to the emergency room with increasing nausea and poor appetite.? He is denying any abdominal pain.? He states that he was not aware that his eyes were turning yellow until his friend noted it in the emergency room yesterday.? He denies any prior history of liver disease jaundice hepatitis or pancreatic disease.? He admits he does not eat breakfast or lunch in fact he picks at food but eats very little.? Surprisingly, he states that he has not lost weight but actually gained a few lb this year.? He was initially vague about how much alcohol use he drinks, for stating he has 1 or 2 shots a day and then later admitting that he drinks a little less than a bottle each day.? Here for [place] has been found have markedly elevated liver enzymes, bilirubin over 10, creatinine greater than 3 and severe hyponatremia.? Nephrology is addressing the renal issues and electrolyte abnormalities. 07/27/22 14:38 Today he is lucid. He has no complaints. He has been eating. There is no sign of bleeding. I discussed with him at length the fact that his liver disease is very serious. I explained that with continued drinking his survival beyond few months is Questionable. He expresses a firm intent to quit drinking completely.
[2022-07-27 16:21] LABS: Appearance Peritoneal Fluid Clear (Clear); Color Peritoneal Fluid Yellow (Colorless); Lymphocytes Peritoneal Fluid 14 %; Macrophages Peritoneal Fluid 35 %; Mesothelial Cells Peritoneal Fluid 22 %; Monocytes Peritoneal Fluid 27 %; Neutrophils Peritoneal Fluid 2 % (0-25); Nucleated Cells Peritoneal Flu 159 /uL (0-500); RBC Peritoneal Fluid 92 /uL (0-100000); Source Peritoneal Fluid Peritoneal Fluid
[2022-07-27 17:13] LABS: Anion Gap 9 mmol/L (8-16); Blood Urea Nitrogen 37 mg/dL (9-20); Calcium 7.2 mg/dL (8.4-10.2); Carbon Dioxide 30 mmol/L (22-30); Chloride 81 mmol/L (98-107); Estimated CRCL calculation 24 ml/min; Estimated Glomerular Filt Rate 20; Glucose 103 mg/dL (65-110); Potassium 3.5 mmol/L (3.4-5.0); Sodium 120 mmol/L (137-145)
[2022-07-27 21:43] LABS: Partial Thromboplastin Time 78.7 SECONDS (22.3-36.8)
[2022-07-27 21:45] LABS: Anion Gap 9 mmol/L (8-16); Blood Urea Nitrogen 40 mg/dL (9-20); Calcium 7.3 mg/dL (8.4-10.2); Carbon Dioxide 31 mmol/L (22-30); Chloride 83 mmol/L (98-107); Estimated CRCL calculation 25 ml/min; Estimated Glomerular Filt Rate 20; Glucose 118 mg/dL (65-110); Potassium 3.5 mmol/L (3.4-5.0); Sodium 123 mmol/L (137-145)
[2022-07-28] VITALS (14 sets, daily range): BP systolic 99–158; BP diastolic 61–87; PULSE 88–120; RESP 16–20; TEMP 36.7–37.2; O2SAT 94–100
--- NOTE | 2022-07-28 | ECHO_ITS ---
Patient Info Name: Micky Goel Age: 31 years : 1990 Gender: Male Ht: 66 in Wt: 145 lbs BSA: 1.76 m2 HR: 96 bpm BP: 99 / 61 mmHg Heart Rhythm: Sinus Rhythm Exam Date: 07/28/2022 2:02 PM Exam Location: [facility] Patient Status: Inpatient Admit Date: 07/25/2022 Staff Ordering Physician: Cristhian Jean-Baptiste MD Art Psychotherapist: Roel Velez, NIECY, RT Attending Provider: Aniya Ernst MD Exam Type: CA echo doppler color flow Study Info Indications - Fluid overload I51.89 - Other ill-defined heart diseases Complete two-dimensional, color flow and Doppler transthoracic echocardiogram is performed. Strain analysis performed. Summary 1. Complete two-dimensional, color flow and Doppler transthoracic echocardiogram is performed. 2. Left ventricular systolic function is hyperdynamic, estimated at >70%. 3. The left ventricular diastolic function is normal. 4. Right ventricular systolic function is normal. 5. There is trace mitral valve regurgitation. 6. There is trace tricuspid valve regurgitation. 7. Left pleural effusion is seen. Left Ventricle Left ventricular chamber dimension is normal. Left ventricular systolic function is hyperdynamic, estimated at >70%. There is no increased left ventricular wall thickness. The left ventricular diastolic function is normal. Global longitudinal strain is normal at -22 %. Right Ventricle Right ventricular chamber dimension is normal. Right ventricular systolic function is normal. Left Atria Left atrial chamber dimension is normal. Right Atria Right atrial chamber dimension is normal. Aortic Valve The aortic valve is not well visualized. There is no aortic valve stenosis. There is no aortic valve regurgitation. Pulmonic Valve The pulmonic valve is not well visualized. Mitral Valve The mitral valve has normal leaflets. There is no mitral valve stenosis. There is trace mitral valve regurgitation. Tricuspid Valve The tricuspid valve leaflets are normal. There is no significant tricuspid valve stenosis. There is trace tricuspid valve regurgitation. Pericardium/Pleural Left pleural effusion is seen. There is no pericardial effusion. Aorta The aortic root size at the sinus of Valsalva is not well visualized. Left Ventricular Outflow Tract Name Value Normal LVOT Doppler LVOT Peak Gradient 3 mmHg LVOT Mean Gradient 2 mmHg LVOT VTI 16 cm LVOT VTI/AV VTI Ratio 0.9 Mitral Valve Name Value Normal MV Doppler MV Decel [place] 532 cm/s2 MV PHT 47 ms MV Area (PHT) 4.7 cm2 4.0-5.0 MV Diastolic Function MV E Peak Velocity 86 cm/s MV A Peak Velocity 40 cm/s
[2022-07-28 05:14] LABS: Basophils Percent Auto 0.1 % (0.2-1.2); Eosinophils Absolute Auto 0.1 K/mm3 (0-0.3); Eosinophils Percent Auto 0.7 % (0-4.4); Hematocrit 32.5 % (42.0-52.0); Hemoglobin 12.1 g/dL (14.0-18.0); Immature Granulocyte Absolute 0.16 K/mm3 (0.00-0.031); Immature Granulocyte Percent A 1.1 % (0-0.5); Lymphocytes Absolute Auto 1.27 K/mm3 (0.9-3.2); Mean Corpuscular HGB Conc 37.2 g/dl (32-36); Mean Corpuscular Hemoglobin 35.1 pg (26-34); Mean Corpuscular Volume 94.2 fl (80-100); Mean Platelet Volume 9.8 fl (7.4-10.4); Monocytes Absolute Auto 1.9 K/mm3 (0.1-0.6); Monocytes Percent Auto 13.4 % (2.6-8.5); Neutrophils Absolute Auto 10.7 K/mm3 (1.3-6.7); Neutrophils Percent Auto 75.7 % (45.5-73.1); Platelet Count Result 184 k/mm3 (150-375); Red Blood Count 3.45 M/mm3 (4.6-6.20); Red Cell Distribution Width 16.4 % (11.5-14.5); White Blood Count 14.2 K/mm3 (4.5-10.0)
[2022-07-28 05:27] LABS: INR 2.3; Prothrombin Time 24.3 Seconds (11.1-14.7)
[2022-07-28 05:29] LABS: Partial Thromboplastin Time 96.5 SECONDS (22.3-36.8)
[2022-07-28 05:39] LABS: Alanine Aminotransferase 103 U/L (6-50); Albumin Level 2.3 g/dL (3.5-5.1); Alkaline Phosphatase 140 U/L (38-126); Anion Gap 7 mmol/L (8-16); Aspartate Amino Transferase 153 U/L (17-59); Bilirubin,Total 7.5 mg/dL (0.2-1.3); Blood Urea Nitrogen 40 mg/dL (9-20); Calcium 7.2 mg/dL (8.4-10.2); Carbon Dioxide 32 mmol/L (22-30); Chloride 84 mmol/L (98-107); Estimated CRCL calculation 24 ml/min; Estimated Glomerular Filt Rate 20; Glucose 96 mg/dL (65-110); Phosphorus 4.9 mg/dL (2.5-4.5); Potassium 3.2 mmol/L (3.4-5.0); Sodium 123 mmol/L (137-145)
[2022-07-28] MEDS: predniSONE 20 MG TABLET 40 MG PO (08:58)
[2022-07-28] MEDS: NICOTINE (*PBKC) 21 MG PATCH 1 PATCH TRANSDERM (08:58)
[2022-07-28] MEDS: THIAMINE HCL 100 MG TABLET PO (08:58)
[2022-07-28] MEDS: FOLIC ACID 1 MG TABLET PO (08:58)
--- NOTE | 2022-07-28 09:22 | WPDGIPROGNO ---
Progress Note: A&P Assessment and Plan (1) Acute hepatic failure: Qualifiers: Hepatic coma status: without hepatic coma Qualified Code(s): K72.00 - Acute and subacute hepatic failure without coma Code(s): K72.00 - Acute and subacute hepatic failure without coma Status: Acute Assessment and Plan: he has elevation of his bilirubin, pro time, transaminases and also ammonia level. We can hope that this is acute alcoholic hepatitis and that these parameters will improve. It will take a few days before it is clear Whether that is the case. He has been started on prednisone 40 mg daily. (2) Hepatorenal syndrome: Code(s): K76.7 - Hepatorenal syndrome Status: Acute Assessment and Plan: Creatinine is over 3. He is being seen by Nephrology. his creatinine is stable at 3. 6 (3) CESARIO (acute kidney injury): Code(s): N17.9 - Acute kidney failure, unspecified Status: Acute Assessment and Plan: creatinine was 3 yesterday and today up to 3.4. nephrology is managing his fluids and electrolytes. (4) Serum total bilirubin elevated: Code(s): R17 - Unspecified jaundice Status: Acute Assessment and Plan: Yesterday bilirubin was 10.1. Up to 11 today he denies pruritus. Hepatitis serology has been done and is negative. 07/27/2022 bilirubin has dropped to 9.0 07/28/2022 bilirubin continues to drop, 7.5 today (5) Portal vein thrombosis: Code(s): I81 - Portal vein thrombosis Status: Acute Assessment and Plan: this has been discussed with Dr. Jean-Baptiste. Although he does have a prolonged protime. Is felt that heparin, at least the somewhat low does would be helpful to help with his portal vein thrombosis, if it is acute he has shown no signs of bleeding so far. The plan is to perform an EGD with treatment if any indicated of esophageal varices. Because of his hyponatremia however anesthesia feels that he is at too great a risk for the procedure today sodium is up to 123 but Anesthesia still refuses to sedate him. It is unlikely his sodium will go much higher than the mid 120s as is the case with many cirrhotic. (6) Alcohol abuse: Code(s): F10.10 - Alcohol abuse, uncomplicated Status: Acute Assessment and Plan: He does admit to drinking most of the day in the fact that is his primary source of nutrition. He eats very little, never breakfast or lunch. He is alert this morning but we will need to continue to observe for possible hepatorenal syndrome. (7) Acute hyponatremia: Code(s): E87.1 - Hypo-osmolality and hyponatremia Status: Acute Assessment and Plan: Initial sodium was 117. Today it is up to 121 07/27/2022 his sodium unfortunately has dropped back down to 119. Consequently EGD is canceled. (8) Ascites: Code(s): R18.8 - Other ascites Status: Acute Assessment and Plan: 1500 mL of ascitic fluid was successfully removed. Initially it appears to be a transudate. We would ideally start him on Aldactone and low-dose Lasix but with his renal insufficiency I will defer all diuretics to Renal. Subjective Date/time seen: 07/28/22 09:22 he has no new complaints. Paracentesis was successful at removing 1500 cc of relatively clear, almost certainly transudative fluid, ascites due to his portal hypertension. He does not have new complaints. No evidence of withdrawal syndrome Exam Const: General: alert and tired appearing Orientation/consciousness: patient oriented x3 Eyes: Sclera: scleral abnormality ( Icterus) bilateral Resp: Auscultation: clear to auscultation bilaterally Cardio: Rhythm: regular rhythm GI: Inspection: other ( convex, appears less distended) GI Palp: No abdominal tenderness, Yes Soft to palpation and Yes Hepatomegaly present Percussion: Yes normal to percussion and No Fluid wave present Auscultation: normal bowel sounds Neuro:
--- NOTE | 2022-07-28 09:26 | PM.IMPN ---
Progress Note: A&P Assessment and Plan (1) Acute hepatic failure: Qualifiers: Hepatic coma status: without hepatic coma Qualified Code(s): K72.00 - Acute and subacute hepatic failure without coma Code(s): K72.00 - Acute and subacute hepatic failure without coma Status: Acute Assessment and Plan: Patient presents with complaints of nausea, vomiting and abdominal bloating and found to have AST 258 > ALT 123 and TB 10.1. Cirrhosis felt related to alcoholism but he is young so consider an underlying etiology for his liver failure as well. -CT A/P showing diffuse hepatic steatosis and ascites. -RUQ US showing hepatomegaly with cirrhosis and protal venous thrombosis. -Discriminant function 36. Meld score 36. Prednisone started -Influenza, COVID negative. -Hepatitis panel negative. HepB core total pending -Iron 52, TIBC 123 42% sat with Ferritin 1260 c/w cirrhosis and not iron overload -paracentesis 07/27 with removal of 1750mL clear yellow fluid and not consistent with SBP; other tests pending -LFTs improving. TB 7.5. Hopefully alcoholic hepatitis that will improve -Work up for the liver failure in progress. -Continue supportive care. -Check Echo (2) CESARIO (acute kidney injury): Code(s): N17.9 - Acute kidney failure, unspecified Status: Acute Assessment and Plan: Cr 3.0 on admission and has climbed to 3.7. Suspect hepatorenal syndrome. -CT showing normal kidneys. -Renal US showing normal appearing kidneys. -C3 and C4 low related to liver dysfunction with poor synthetic function (INR elevated as well) -Urine eos negative. Urine Prot/Cr 0.06, Chata <5. -Creatinine unchanged but UOP increased so may be post-ATN diuresis? -Other testing pending; followup on results -Nephrology consulted and appreciate their input -Continue to monitor. (3) Acute hyponatremia: Code(s): E87.1 - Hypo-osmolality and hyponatremia Status: Acute Assessment and Plan: Hyponatremia on admission at 117 and is likely due to chronic alcohol use in setting of cirrhosis. Started on IV fluids but now stopped. -Sodium better at 123. -Continue to monitor serial sodium levels. -Nephrology managing. (4) Portal vein thrombosis: Code(s): I81 - Portal vein thrombosis Status: Acute Assessment and Plan: The patient has portal venous thrombus and received 1 dose of therapeutic Lovenox in the ER. -Heparin drip added without bolus. -Discussed with GI. -Patient tolerating Heparin drip; HH stable. -Monitor HH closely. (5) Hepatorenal syndrome: Code(s): K76.7 - Hepatorenal syndrome Status: Acute Assessment and Plan: As above (6) Cirrhosis of liver with ascites: Qualifiers: Hepatic cirrhosis type: alcoholic cirrhosis Qualified Code(s): K70.31 - Alcoholic cirrhosis of liver with ascites Code(s): K74.60 - Unspecified cirrhosis of liver; R18.8 - Other ascites Status: Acute Assessment and Plan: Patient with cirrhosis with ascites and possible portal venous HTN. -Etiology felt to be related to alcoholism but consider other etiologies given his age. -He was educated about the benefits of abstaining from alcohol. -EGD planned to assess for varices but waiting for Na to improve. (7) Colitis: Code(s): K52.9 - Noninfective gastroenteritis and colitis, unspecified Status: Acute Assessment and Plan: CT scan showing diffuse wall thickening. -Suspect related to edema from liver failure and not infectious but now on Zosyn. -BCx NGTD/Pending -no diarrhea -Follow. -stop abx if cultures remain negative (8) Alcohol abuse: Code(s): F10.10 - Alcohol abuse, uncomplicated Status: Acute Assessment and Plan: Patient was educated about the benefits of abstaining from alcohol. No signs or symptoms of withdrawal. Continue CIWA protocol. Continue Thiamine and Folate. (9) Acute hypokale
[2022-07-28] MEDS: HEPARIN SOD/D5W 100 UNITS/ML 25,000 UNITS/250 ML BAG 7 UNITS IV CONT (11:11)
--- NOTE | 2022-07-28 15:28 | PM.PNNEP ---
Progress Note: A&P Assessment and Plan (1) CESARIO (acute kidney injury): Code(s): N17.9 - Acute kidney failure, unspecified Status: Acute Assessment and Plan: unclear baseline renal function -- assuming normal prior to admission suspect a component of prerenal azotemia (since only source of nutrition has been alcohol) however, his liver dysfunction may have precipitated possible hepatorenal syndrome as well evaluation to date: urine electroltyes prerenal -- due to volume depleion versus liver physiology versus both(?) renal ultrasound unremarkable urine eosinophils negative no proteinuria low complements but other serologies pending tolerating gentle IVF hydration but no real significant improvement in creatinine/renal function follow repeat labs and UOP (2) Hyponatremia: Code(s): E87.1 - Hypo-osmolality and hyponatremia Status: Acute Assessment and Plan: acute versus chronic versus acute on chronic?? -- no previous labs for comparison this is further complicated by his presumed CESARIO and presumed acute liver injury both conditions can lead to hyponatremia only mild improvement noted with normal saline IVFs TSH and cortisol okay; serum/urine osmolality and SPEP/UPEP pending suspect chronic alcohol use in the setting of liver cirrhosis to blame -- however, cannot discount CESARIO playing a role as well follow trend of sodium level (3) Acute hepatic failure: Qualifiers: Hepatic coma status: without hepatic coma Qualified Code(s): K72.00 - Acute and subacute hepatic failure without coma Code(s): K72.00 - Acute and subacute hepatic failure without coma Status: Acute Assessment and Plan: quite severe as noted by elevated LFTs, bilirubin, and ammonia level started on steroids on the hope this is acute alcohol hepatitis Gastroenterology recommendations noted (4) Portal vein thrombosis: Code(s): I81 - Portal vein thrombosis Status: Acute Assessment and Plan: as noted by imaging INR elevated already on heparin gtt (5) Alcohol abuse: Code(s): F10.10 - Alcohol abuse, uncomplicated Status: Acute Assessment and Plan: on thiamine and folate monitor for signs of withdrawal Will continue to follow. Subjective Date/time seen: 07/28/22 15:28 No apparent distres noted at this time; sodium and kidney function about the same despite multiple interventions to date; s/p paracentesis yesterday with significant improvement in his symptoms regarding his abdominal discomfort. Exam Narrative: General: WD/WN in NAD Heart: normal S1 and S2; no rub Lungs: clear to auscultation Abdomen: soft with mild distension, positive bowel sounds Extremities: no cyanosis or clubbing; trace edema Skin: warm and intact Objective Data Vital Signs Vital Signs: Vital Signs Temp Pulse Pulse Resp BP Pulse Ox O2 Del Method 07/28/22 14:00 98 07/28/22 12:00 88 07/28/22 12:00 97 07/28/22 12:00 98.5 F 94 16 99/65 L 96 07/28/22 10:00 98 07/28/22 08:00 91 07/28/22 08:00 90 07/28/22 08:00 98.1 F 88 16 99/61 L 95 07/28/22 06:00 93 07/28/22 04:00 89 20 100 Room Air 07/28/22 04:00 89 158/87 H 07/28/22 04:00 89 07/28/22 02:00 105 H 07/28/22 00:00 92 20 100 Room Air 07/28/22 00:00 92 158/87 H 07/28/22 00:00 92 07/27/22 23:54 98.6 F 98 20 158/87 H 100 07/27/22 22:00 103 H 07/27/22 20:00 107 H 07/27/22 20:00 107 H 20 100 Room Air 07/27/22 20:00 107 H 102/60 07/27/22 20:12 98.7 F 103 H 20 102/60 100 07/27/22 18:00 107 H Intake/Output Intake/Output: Intake & Output 07/25/22 07/26/22 07/27/22 07/28/22 23:59 23:59 23:59 23:59 Intake Total 1150 1740 2620 2080 Output Total 80 1900 850 Balance 1150 9143 945 9918 Meds/Re
--- NOTE | 2022-07-28 15:28 | P.PNNP_ITS ---
Progress Note: A&P Assessment and Plan (1) CESARIO (acute kidney injury): Code(s): N17.9 - Acute kidney failure, unspecified Status: Acute Assessment and Plan: * unclear baseline renal function -- assuming normal prior to admission * suspect a component of prerenal azotemia (since only source of nutrition has been alcohol) * however, his liver dysfunction may have precipitated possible hepatorenal syndrome as well * evaluation to date: * urine electroltyes prerenal -- due to volume depleion versus liver physiology versus both(?) * renal ultrasound unremarkable * urine eosinophils negative * no proteinuria * low complements but other serologies pending * tolerating gentle IVF hydration but no real significant improvement in creatinine/renal function * follow repeat labs and UOP (2) Hyponatremia: Code(s): E87.1 - Hypo-osmolality and hyponatremia Status: Acute Assessment and Plan: * acute versus chronic versus acute on chronic?? -- no previous labs for julisa tam * this is further complicated by his presumed CESARIO and presumed acute liver injury * both conditions can lead to hyponatremia * only mild improvement noted with normal saline IVFs * TSH and cortisol okay; serum/urine osmolality and SPEP/UPEP pending * suspect chronic alcohol use in the setting of liver cirrhosis to blame -- however, cannot discount CESARIO playing a role as well * follow trend of sodium level (3) Acute hepatic failure: Qualifiers: Hepatic coma status: without hepatic coma Qualified Code(s): K72.00 - Acute and subacute hepatic failure without coma Code(s): K72.00 - Acute and subacute hepatic failure without coma Status: Acute Assessment and Plan: * quite severe as noted by elevated LFTs, bilirubin, and ammonia level * started on steroids on the hope this is acute alcohol hepatitis * Gastroenterology recommendations noted (4) Portal vein thrombosis: Code(s): I81 - Portal vein thrombosis Status: Acute Assessment and Plan: * as noted by imaging * INR elevated already * on heparin gtt (5) Alcohol abuse: Code(s): F10.10 - Alcohol abuse, uncomplicated Status: Acute Assessment and Plan: * on thiamine and folate * monitor for signs of withdrawal Will continue to follow. Subjective Date/time seen: 07/28/22 15:28 No apparent distres noted at this time; sodium and kidney function about the same despite multiple interventions to date; s/p paracentesis yesterday with significant improvement in his symptoms regarding his abdominal discomfort. Exam Narrative: General: WD/WN in NAD Heart: normal S1 and S2; no rub Lungs: clear to auscultation Abdomen: soft with mild distension, positive bowel sounds Extremities: no cyanosis or clubbing; trace edema Skin: warm and intact Objective Data Vital Signs Vital Signs: Vital Signs Temp Pulse Pulse Resp BP Pulse Ox O2 Del Method 07/28/22 14:00 98 07/28/22 12:00 88 07/28/22 12:00 97 07/28/22 12:00 98.5 F 94 16 99/65 L 96 07/28/22 10:00 98 07/28/22 08:00 91 07/28/22 08:00 90 07/28/22 08:00 98.1 F 88 16 99/61 L 95 07/28/22 06:00 93 07/28/22 04:00 89 20 100 Room Air 07/28/22 04:00 89 158
[2022-07-28 19:17] LABS: Albumin Level 2.8 g/dL (3.5-5.1); Anion Gap 9 mmol/L (8-16); Blood Urea Nitrogen 44 mg/dL (9-20); Calcium 7.9 mg/dL (8.4-10.2); Carbon Dioxide 32 mmol/L (22-30); Chloride 81 mmol/L (98-107); Estimated CRCL calculation 26 ml/min; Estimated Glomerular Filt Rate 21; Glucose 128 mg/dL (65-110); Phosphorus 4.4 mg/dL (2.5-4.5); Potassium 3.3 mmol/L (3.4-5.0); Sodium 122 mmol/L (137-145)
[2022-07-28] MEDS: POTASSIUM CHLORIDE 20 MEQ TABLET PO (22:44)
[2022-07-29] VITALS (13 sets, daily range): BP systolic 97–104; BP diastolic 61–67; PULSE 82–118; RESP 14–24; TEMP 36.6–37; O2SAT 93–100
[2022-07-29 05:07] LABS: Basophils Percent Auto 0.1 % (0.2-1.2); Eosinophils Absolute Auto 0.1 K/mm3 (0-0.3); Eosinophils Percent Auto 0.7 % (0-4.4); Hematocrit 32.8 % (42.0-52.0); Hemoglobin 12.3 g/dL (14.0-18.0); Immature Granulocyte Absolute 0.19 K/mm3 (0.00-0.031); Immature Granulocyte Percent A 1.4 % (0-0.5); Lymphocytes Absolute Auto 1.46 K/mm3 (0.9-3.2); Lymphocytes Percent Auto 10.8 % (18.3-44.2); Mean Corpuscular HGB Conc 37.5 g/dl (32-36); Mean Corpuscular Volume 93.4 fl (80-100); Mean Platelet Volume 9.8 fl (7.4-10.4); Monocytes Absolute Auto 1.9 K/mm3 (0.1-0.6); Monocytes Percent Auto 13.9 % (2.6-8.5); Neutrophils Absolute Auto 9.9 K/mm3 (1.3-6.7); Neutrophils Percent Auto 73.1 % (45.5-73.1); Platelet Count Result 162 k/mm3 (150-375); Red Blood Count 3.51 M/mm3 (4.6-6.20); Red Cell Distribution Width 16.5 % (11.5-14.5); White Blood Count 13.6 K/mm3 (4.5-10.0)
[2022-07-29 05:14] LABS: INR 2.2; Prothrombin Time 23.6 Seconds (11.1-14.7)
[2022-07-29 05:16] LABS: Partial Thromboplastin Time 94.1 SECONDS (22.3-36.8)
[2022-07-29 05:19] LABS: Alanine Aminotransferase 101 U/L (6-50); Albumin Level 2.3 g/dL (3.5-5.1); Alkaline Phosphatase 144 U/L (38-126); Anion Gap 5 mmol/L (8-16); Aspartate Amino Transferase 142 U/L (17-59); Bilirubin,Total 7.6 mg/dL (0.2-1.3); Blood Urea Nitrogen 45 mg/dL (9-20); Calcium 7.3 mg/dL (8.4-10.2); Carbon Dioxide 32 mmol/L (22-30); Chloride 83 mmol/L (98-107); Estimated CRCL calculation 27 ml/min; Estimated Glomerular Filt Rate 22; Glucose 98 mg/dL (65-110); Magnesium 2.1 mg/dL (1.6-2.3); Phosphorus 4.1 mg/dL (2.5-4.5); Potassium 3.1 mmol/L (3.4-5.0); Sodium 120 mmol/L (137-145)
--- NOTE | 2022-07-29 06:54 | WPDGIPROGNO ---
Progress Note: A&P Assessment and Plan (1) Acute hepatic failure: Qualifiers: Hepatic coma status: without hepatic coma Qualified Code(s): K72.00 - Acute and subacute hepatic failure without coma Code(s): K72.00 - Acute and subacute hepatic failure without coma Status: Acute Assessment and Plan: he has elevation of his bilirubin, pro time, transaminases and also ammonia level. We can hope that this is acute alcoholic hepatitis and that these parameters will improve. It will take a few days before it is clear Whether that is the case. He has been started on prednisone 40 mg daily. 07/29/2022 transaminases had improved but are holding steady now, virtually unchanged from yesterday (2) Hepatorenal syndrome: Code(s): K76.7 - Hepatorenal syndrome Status: Acute Assessment and Plan: Creatinine is over 3. He is being seen by Nephrology. his creatinine is stable at 3. 6 (3) CESARIO (acute kidney injury): Code(s): N17.9 - Acute kidney failure, unspecified Status: Acute Assessment and Plan: creatinine was 3 yesterday and today up to 3.4. nephrology is managing his fluids and electrolytes. 07/29/2022 BUN is actually little higher, 48. Creatinine however trending lower at 3.0 (4) Serum total bilirubin elevated: Code(s): R17 - Unspecified jaundice Status: Acute Assessment and Plan: Yesterday bilirubin was 10.1. Up to 11 today he denies pruritus. Hepatitis serology has been done and is negative. 07/27/2022 bilirubin has dropped to 9.0 07/28/2022 bilirubin continues to drop, 7.5 today 07/29/2022 bilirubin stable at 7.6. (5) Portal vein thrombosis: Code(s): I81 - Portal vein thrombosis Status: Acute Assessment and Plan: this has been discussed with Dr. Jean-Baptiste. Although he does have a prolonged protime. Is felt that heparin, at least the somewhat low does would be helpful to help with his portal vein thrombosis, if it is acute he has shown no signs of bleeding so far. The plan is to perform an EGD with treatment if any indicated of esophageal varices. Because of his hyponatremia however anesthesia feels that he is at too great a risk for the procedure today sodium is up to 123 but Anesthesia still refuses to sedate him. It is unlikely his sodium will go much higher than the mid 120s as is the case with many cirrhotic. (6) Alcohol abuse: Code(s): F10.10 - Alcohol abuse, uncomplicated Status: Acute Assessment and Plan: He does admit to drinking most of the day in the fact that is his primary source of nutrition. He eats very little, never breakfast or lunch. He is alert this morning but we will need to continue to observe for possible hepatorenal syndrome. (7) Acute hyponatremia: Code(s): E87.1 - Hypo-osmolality and hyponatremia Status: Acute Assessment and Plan: Initial sodium was 117. Today it is up to 121 07/27/2022 his sodium unfortunately has dropped back down to 119. Consequently EGD is canceled. (8) Ascites: Code(s): R18.8 - Other ascites Status: Acute Assessment and Plan: 1500 mL of ascitic fluid was successfully removed. Initially it appears to be a transudate. We would ideally start him on Aldactone and low-dose Lasix but with his renal insufficiency I will defer all diuretics to Renal. Subjective Date/time seen: Micky Goel is a 31 year old male? who was admitted alcoholic who presents to the emergency room with increasing nausea and poor appetite.? He is denying any abdominal pain.? He states that he was not aware that his eyes were turning yellow until his friend noted it in the emergency room yesterday.? He denies any prior history of liver disease jaundice hepatitis or pancreatic disease.? He admits he does not eat breakfast or lunch in fact he picks at food but eats very little.? Surprisingly, he states that he has not lo
[2022-07-29] MEDS: THIAMINE HCL 100 MG TABLET PO (10:20)
[2022-07-29] MEDS: predniSONE 20 MG TABLET 40 MG PO (10:24)
[2022-07-29] MEDS: MIDODRINE HCL 2.5 MG TABLET PO ×3 (10:24→18:15)
[2022-07-29] MEDS: FOLIC ACID 1 MG TABLET PO (10:25)
[2022-07-29] MEDS: NICOTINE (*PBKC) 21 MG PATCH 1 PATCH TRANSDERM (10:25)
[2022-07-29] MEDS: PIPERACILLIN/TAZOBACTAM SOD 2.25 GM in SODIUM CHLORIDE 0.9% IV 50 ML 100 ML IVPB ×3 (10:48→20:42)
--- NOTE | 2022-07-29 14:49 | P.PNNP_ITS ---
Progress Note: A&P Assessment and Plan (1) CESARIO (acute kidney injury): Code(s): N17.9 - Acute kidney failure, unspecified Status: Acute Assessment and Plan: * unclear baseline renal function -- assuming normal prior to admission * suspect a component of prerenal azotemia (since only source of nutrition had been alcohol) * however, his liver dysfunction may have precipitated possible hepatorenal syndrome as well * this may just all be ATN from altered hemodynamics due to acute liver disease physiology * evaluation to date: * urine electrolytes prerenal -- due to volume depletion versus liver physiology versus both(?) * renal ultrasound unremarkable * urine eosinophils negative * no proteinuria * low complements but other serologies pending * off IVFs at this time (suspect this may have worsened this ascites) * started on midodrine to see if a higher BP may help improve kidney function * follow repeat labs and UOP (2) Hyponatremia: Code(s): E87.1 - Hypo-osmolality and hyponatremia Status: Acute Assessment and Plan: * acute versus chronic versus acute on chronic?? -- no previous labs for comparison * this is further complicated by his CESARIO and presumed acute liver injury * both conditions can lead to hyponatremia * only mild improvement noted with normal saline IVFs * TSH and cortisol okay; serum/urine osmolality and SPEP/UPEP pending * suspect chronic alcohol use in the setting of liver cirrhosis to blame -- however, cannot discount CESARIO playing a role as well * follow trend of sodium level (3) Acute hepatic failure: Qualifiers: Hepatic coma status: without hepatic coma Qualified Code(s): K72.00 - Acute and subacute hepatic failure without coma Code(s): K72.00 - Acute and subacute hepatic failure without coma Status: Acute Assessment and Plan: * quite severe as noted by elevated LFTs, bilirubin, and ammonia level * started on steroids on the hope this is acute alcohol hepatitis * Gastroenterology recommendations noted (4) Portal vein thrombosis: Code(s): I81 - Portal vein thrombosis Status: Acute Assessment and Plan: * as noted by imaging * INR elevated already * on heparin gtt (5) Alcohol abuse: Code(s): F10.10 - Alcohol abuse, uncomplicated Status: Acute Assessment and Plan: * on thiamine and folate * monitor for signs of withdrawal Will continue to follow. Subjective Date/time seen: 07/29/22 14:49 Despite issues as noted since admission, appears in good spirits; urine output seems to be picking up and creatinine as well as sodium seem a bit better today by AM labs; not very found of the fluid restriction but understand the purpose of it; no apparent distress voiced; no other complaints to report. Exam Narrative: General: WD/WN in NAD Heart: normal S1 and S2; no rub Lungs: clear to auscultation Abdomen: soft with mild distension, positive bowel sounds Extremities: no cyanosis or clubbing; trace edema Skin: no rash Objective Data Vital Signs Vital Signs: Vital Signs Temp Pulse Pulse Resp BP Pulse Ox O2 Del Method 07/29/22 14:00 87 07/29/22 12:00 98.5 F 101 H 24 H 101/65 93 07/29/22 08:00 97.9 F 94 16 97/64 L 96 07/29/22 12:00 92 94 Room Air 07/29/22 12:00 118 H 101/65
--- NOTE | 2022-07-29 14:49 | PM.PNNEP ---
Progress Note: A&P Assessment and Plan (1) CESARIO (acute kidney injury): Code(s): N17.9 - Acute kidney failure, unspecified Status: Acute Assessment and Plan: unclear baseline renal function -- assuming normal prior to admission suspect a component of prerenal azotemia (since only source of nutrition had been alcohol) however, his liver dysfunction may have precipitated possible hepatorenal syndrome as well this may just all be ATN from altered hemodynamics due to acute liver disease physiology evaluation to date: urine electrolytes prerenal -- due to volume depletion versus liver physiology versus both(?) renal ultrasound unremarkable urine eosinophils negative no proteinuria low complements but other serologies pending off IVFs at this time (suspect this may have worsened this ascites) started on midodrine to see if a higher BP may help improve kidney function follow repeat labs and UOP (2) Hyponatremia: Code(s): E87.1 - Hypo-osmolality and hyponatremia Status: Acute Assessment and Plan: acute versus chronic versus acute on chronic?? -- no previous labs for comparison this is further complicated by his CESARIO and presumed acute liver injury both conditions can lead to hyponatremia only mild improvement noted with normal saline IVFs TSH and cortisol okay; serum/urine osmolality and SPEP/UPEP pending suspect chronic alcohol use in the setting of liver cirrhosis to blame -- however, cannot discount CESARIO playing a role as well follow trend of sodium level (3) Acute hepatic failure: Qualifiers: Hepatic coma status: without hepatic coma Qualified Code(s): K72.00 - Acute and subacute hepatic failure without coma Code(s): K72.00 - Acute and subacute hepatic failure without coma Status: Acute Assessment and Plan: quite severe as noted by elevated LFTs, bilirubin, and ammonia level started on steroids on the hope this is acute alcohol hepatitis Gastroenterology recommendations noted (4) Portal vein thrombosis: Code(s): I81 - Portal vein thrombosis Status: Acute Assessment and Plan: as noted by imaging INR elevated already on heparin gtt (5) Alcohol abuse: Code(s): F10.10 - Alcohol abuse, uncomplicated Status: Acute Assessment and Plan: on thiamine and folate monitor for signs of withdrawal Will continue to follow. Subjective Date/time seen: 07/29/22 14:49 Despite issues as noted since admission, appears in good spirits; urine output seems to be picking up and creatinine as well as sodium seem a bit better today by AM labs; not very found of the fluid restriction but understand the purpose of it; no apparent distress voiced; no other complaints to report. Exam Narrative: General: WD/WN in NAD Heart: normal S1 and S2; no rub Lungs: clear to auscultation Abdomen: soft with mild distension, positive bowel sounds Extremities: no cyanosis or clubbing; trace edema Skin: no rash Objective Data Vital Signs Vital Signs: Vital Signs Temp Pulse Pulse Resp BP Pulse Ox O2 Del Method 07/29/22 14:00 87 07/29/22 12:00 98.5 F 101 H 24 H 101/65 93 07/29/22 08:00 97.9 F 94 16 97/64 L 96 07/29/22 12:00 92 94 Room Air 07/29/22 12:00 118 H 101/65 07/29/22 12:00 118 H 07/29/22 10:00 88 07/29/22 08:00 82 20 100 Room Air 07/29/22 08:00 92 07/29/22 08:00 82 07/29/22 06:00 98 07/29/22 04:00 92 20 100 Room Air 07/29/22 04:00 92 99/67 L 07/29/22 04:00 92 07/29/22 02:00 86 07/29/22 00:00 98 20 100 Room Air 07/29/22 00:00 98 99/67 L 07/29/22 00:00 98 07/28/22 22:00 94 07/28/22 20:00 120 H 07/28/22 20:00 120 H 20 100 Room Air 07/28/22 20:00 120 H 99/67 L 07/28/22 20:24 98.5 F 20 99/67 L 100 07/28/22 1
[2022-07-29 15:53] LABS: Albumin Level 2.5 g/dL (3.5-5.1); Anion Gap 6 mmol/L (8-16); Blood Urea Nitrogen 48 mg/dL (9-20); Calcium 7.6 mg/dL (8.4-10.2); Carbon Dioxide 32 mmol/L (22-30); Chloride 84 mmol/L (98-107); Estimated CRCL calculation 29 ml/min; Estimated Glomerular Filt Rate 24; Glucose 111 mg/dL (65-110); Phosphorus 3.2 mg/dL (2.5-4.5); Potassium 3.2 mmol/L (3.4-5.0); Sodium 122 mmol/L (137-145)
[2022-07-29] MEDS: POTASSIUM CHLORIDE 20 MEQ TABLET 40 MEQ PO (18:15)
--- NOTE | 2022-07-29 19:57 | P.PNIM_ITS ---
Progress Note: A&P Assessment and Plan (1) Acute hepatic failure: Qualifiers: Hepatic coma status: without hepatic coma Qualified Code(s): K72.00 - Acute and subacute hepatic failure without coma Code(s): K72.00 - Acute and subacute hepatic failure without coma Status: Acute Assessment and Plan: Patient presents with complaints of nausea, vomiting and abdominal bloating and found to have AST 258 > ALT 123 and TB 10.1. Cirrhosis felt related to alcoholism but he is young so consider an underlying etiology for his liver failure as well. -CT A/P showing diffuse hepatic steatosis and ascites. -RUQ US showing hepatomegaly with cirrhosis and protal venous thrombosis. -Discriminant function 36. Meld score 36. Prednisone started -Influenza, COVID negative. -Hepatitis panel negative. HepB core total pending -Iron 52, TIBC 123 42% sat with Ferritin 1260 c/w cirrhosis and not iron overload -paracentesis 07/27 with removal of 1750mL clear yellow fluid and not consistent with SBP; other tests pending -LFTs improving. TB 7.5. Hopefully alcoholic hepatitis that will improve -Work up for the liver failure in progress. -Continue supportive care. -Check Echo (2) CESARIO (acute kidney injury): Code(s): N17.9 - Acute kidney failure, unspecified Status: Acute Assessment and Plan: Cr 3.0 on admission and has climbed to 3.7. Suspect hepatorenal syndrome. -CT showing normal kidneys. -Renal US showing normal appearing kidneys. -C3 and C4 low related to liver dysfunction with poor synthetic function (INR elevated as well) -Urine eos negative. Urine Prot/Cr 0.06, Chata <5. -Creatinine unchanged but UOP increased so may be post-ATN diuresis? -Other testing pending; followup on results -Nephrology consulted and appreciate their input -Continue to monitor. (3) Acute hyponatremia: Code(s): E87.1 - Hypo-osmolality and hyponatremia Status: Acute Assessment and Plan: Hyponatremia on admission at 117 and is likely due to chronic alcohol use in setting of cirrhosis. Started on IV fluids but now stopped. -Sodium better at 123. -Continue to monitor serial sodium levels. -Nephrology managing. (4) Portal vein thrombosis: Code(s): I81 - Portal vein thrombosis Status: Acute Assessment and Plan: The patient has portal venous thrombus and received 1 dose of therapeutic Lovenox in the ER. -Heparin drip added without bolus. -Discussed with GI. -Patient tolerating Heparin drip; HH stable. -Monitor HH closely. (5) Hepatorenal syndrome: Code(s): K76.7 - Hepatorenal syndrome Status: Acute Assessment and Plan: As above (6) Cirrhosis of liver with ascites: Qualifiers: Hepatic cirrhosis type: alcoholic cirrhosis Qualified Code(s): K70.31 - Alcoholic cirrhosis of liver with ascites Code(s): K74.60 - Unspecified cirrhosis of liver; R18.8 - Other ascites Status: Acute Assessment and Plan: Patient with cirrhosis with ascites and possible portal venous HTN. -Etiology felt to be related to alcoholism but consider other etiologies given his age. -He was educated about the benefits of abstaining from alcohol. -EGD planned to assess for varices but waiting for Na to improve. (7) Colitis: Code(s): K52.9 - Noninfective gastroenteritis and colitis, unspecified Status: Acute Assessment and Plan: CT scan showing diffuse wall thickening. -Suspect related to edema from liver failure and not infectious but now
[2022-07-29 21:55] LABS: Albumin Level 2.5 g/dL (3.5-5.1); Anion Gap 8 mmol/L (8-16); Blood Urea Nitrogen 49 mg/dL (9-20); Calcium 7.6 mg/dL (8.4-10.2); Carbon Dioxide 30 mmol/L (22-30); Chloride 87 mmol/L (98-107); Estimated CRCL calculation 27 ml/min; Estimated Glomerular Filt Rate 22; Glucose 124 mg/dL (65-110); Phosphorus 3.7 mg/dL (2.5-4.5); Potassium 3.4 mmol/L (3.4-5.0); Sodium 125 mmol/L (137-145)
[2022-07-29 23:02] LABS: Osmolality, Urine 328 mOsm/kg (50-1200)
[2022-07-30] VITALS (13 sets, daily range): BP systolic 96–107; BP diastolic 59–76; PULSE 74–101; RESP 12–20; TEMP 36.4–37; O2SAT 93–100
[2022-07-30] MEDS: PIPERACILLIN/TAZOBACTAM SOD 2.25 GM in SODIUM CHLORIDE 0.9% IV 50 ML 100 ML IVPB ×4 (02:28→20:33)
[2022-07-30 04:33] LABS: Basophils Percent Auto 0.2 % (0.2-1.2); Eosinophils Absolute Auto 0.1 K/mm3 (0-0.3); Eosinophils Percent Auto 0.9 % (0-4.4); Hematocrit 31.2 % (42.0-52.0); Hemoglobin 11.6 g/dL (14.0-18.0); Immature Granulocyte Absolute 0.14 K/mm3 (0.00-0.031); Immature Granulocyte Percent A 1.3 % (0-0.5); Lymphocytes Percent Auto 8.2 % (18.3-44.2); Mean Corpuscular HGB Conc 37.2 g/dl (32-36); Mean Corpuscular Hemoglobin 34.5 pg (26-34); Mean Corpuscular Volume 92.9 fl (80-100); Monocytes Absolute Auto 1.5 K/mm3 (0.1-0.6); Monocytes Percent Auto 13.9 % (2.6-8.5); Neutrophils Absolute Auto 8.2 K/mm3 (1.3-6.7); Neutrophils Percent Auto 75.5 % (45.5-73.1); Platelet Count Result 148 k/mm3 (150-375); Red Blood Count 3.36 M/mm3 (4.6-6.20); Red Cell Distribution Width 16.9 % (11.5-14.5); White Blood Count 10.9 K/mm3 (4.5-10.0)
[2022-07-30 04:38] LABS: INR 2.3; Prothrombin Time 24.1 Seconds (11.1-14.7)
[2022-07-30 04:40] LABS: Partial Thromboplastin Time 87.7 SECONDS (22.3-36.8)
[2022-07-30 04:49] LABS: Alanine Aminotransferase 99 U/L (6-50); Albumin Level 2.1 g/dL (3.5-5.1); Alkaline Phosphatase 165 U/L (38-126); Anion Gap 4 mmol/L (8-16); Aspartate Amino Transferase 122 U/L (17-59); Bilirubin,Total 7.3 mg/dL (0.2-1.3); Blood Urea Nitrogen 49 mg/dL (9-20); Calcium 7.4 mg/dL (8.4-10.2); Carbon Dioxide 32 mmol/L (22-30); Chloride 90 mmol/L (98-107); Estimated CRCL calculation 31 ml/min; Estimated Glomerular Filt Rate 26; Glucose 106 mg/dL (65-110); Magnesium 2.1 mg/dL (1.6-2.3); Phosphorus 3.8 mg/dL (2.5-4.5); Potassium 3.4 mmol/L (3.4-5.0); Sodium 126 mmol/L (137-145)
[2022-07-30] MEDS: FOLIC ACID 1 MG TABLET PO (08:55)
[2022-07-30] MEDS: THIAMINE HCL 100 MG TABLET PO (08:55)
[2022-07-30] MEDS: MIDODRINE HCL 2.5 MG TABLET PO ×3 (08:55→16:25)
[2022-07-30] MEDS: predniSONE 20 MG TABLET 40 MG PO (08:55)
[2022-07-30] MEDS: NICOTINE (*PBKC) 21 MG PATCH 1 PATCH TRANSDERM (08:56)
[2022-07-30 09:40] LABS: Ceruloplasmin 22 mg/dL (18-36)
--- NOTE | 2022-07-30 10:06 | P.PNNP_ITS ---
Progress Note: A&P Assessment and Plan (1) CESARIO (acute kidney injury): Code(s): N17.9 - Acute kidney failure, unspecified Status: Acute Assessment and Plan: * improvement noted * appears to have peaked/plateaued 3.6mg/dl * unclear baseline renal function -- assuming normal prior to admission * suspect a component of prerenal azotemia (since only source of nutrition had been alcohol) * however, his liver dysfunction may have precipitated possible hepatorenal syndrome as well * but this may just all be ATN from altered hemodynamics due to acute liver disease physiology (seem more likely at this point) * evaluation to date: * urine electrolytes prerenal -- due to volume depletion versus liver physiology versus both(?) * renal ultrasound unremarkable * urine eosinophils negative * no proteinuria * low complements but other serologies pending * off IVFs at this time (suspect this may have worsened this ascites) * on midodrine to see if a higher BP may help improve kidney function * follow repeat labs and UOP (2) Hyponatremia: Code(s): E87.1 - Hypo-osmolality and hyponatremia Status: Acute Assessment and Plan: * slow improvement noted as well * acute versus chronic versus acute on chronic?? -- no previous labs for comparison * this is further complicated by his CESARIO and presumed acute liver injury * both conditions can lead to hyponatremia * only mild improvement noted with normal saline IVFs * TSH and cortisol okay; serum/urine osmolality and SPEP/UPEP pending * suspect chronic alcohol use in the setting of liver cirrhosis to blame -- however, cannot discount CESARIO playing a role as well * follow trend of sodium level (3) Acute hepatic failure: Qualifiers: Hepatic coma status: without hepatic coma Qualified Code(s): K72.00 - Acute and subacute hepatic failure without coma Code(s): K72.00 - Acute and subacute hepatic failure without coma Status: Acute Assessment and Plan: * quite severe on admission as noted by elevated LFTs, bilirubin, and ammonia level * on steroids on the hope this is acute alcohol hepatitis * Gastroenterology recommendations noted (4) Portal vein thrombosis: Code(s): I81 - Portal vein thrombosis Status: Acute Assessment and Plan: * as noted by imaging * INR elevated already * on heparin gtt (5) Alcohol abuse: Code(s): F10.10 - Alcohol abuse, uncomplicated Status: Acute Assessment and Plan: * on thiamine and folate * monitor for signs of withdrawal Will continue to follow. Subjective Date/time seen: 07/30/22 10:06 Appears that renal function and hyponatremia are slowly improving as evidenced by trend of labs in the last 24 - 48 hours; no apparent distress noted; no events overnight or earlier this morning; remains in good spirits at this time. Exam Narrative: General: WD/WN in NAD Heart: normal S1 and S2; no rub Lungs: clear to auscultation Abdomen: soft with mild distension, positive bowel sounds Extremities: no cyanosis or clubbing; trace edema Skin: no nodules Objective Data Vital Signs Vital Signs: Vital Signs Temp Pulse Pulse Resp BP Pulse Ox O2 Del Method 07/30/22 10:00 91 07/30/22 08:00 75 07/30/22 08:00 90 07/30/22 08:00 97.6 F 81 12 97/59 L 95 1
--- NOTE | 2022-07-30 10:06 | PM.PNNEP ---
Progress Note: A&P Assessment and Plan (1) CESARIO (acute kidney injury): Code(s): N17.9 - Acute kidney failure, unspecified Status: Acute Assessment and Plan: improvement noted appears to have peaked/plateaued 3.6mg/dl unclear baseline renal function -- assuming normal prior to admission suspect a component of prerenal azotemia (since only source of nutrition had been alcohol) however, his liver dysfunction may have precipitated possible hepatorenal syndrome as well but this may just all be ATN from altered hemodynamics due to acute liver disease physiology (seem more likely at this point) evaluation to date: urine electrolytes prerenal -- due to volume depletion versus liver physiology versus both(?) renal ultrasound unremarkable urine eosinophils negative no proteinuria low complements but other serologies pending off IVFs at this time (suspect this may have worsened this ascites) on midodrine to see if a higher BP may help improve kidney function follow repeat labs and UOP (2) Hyponatremia: Code(s): E87.1 - Hypo-osmolality and hyponatremia Status: Acute Assessment and Plan: slow improvement noted as well acute versus chronic versus acute on chronic?? -- no previous labs for comparison this is further complicated by his CESARIO and presumed acute liver injury both conditions can lead to hyponatremia only mild improvement noted with normal saline IVFs TSH and cortisol okay; serum/urine osmolality and SPEP/UPEP pending suspect chronic alcohol use in the setting of liver cirrhosis to blame -- however, cannot discount CESARIO playing a role as well follow trend of sodium level (3) Acute hepatic failure: Qualifiers: Hepatic coma status: without hepatic coma Qualified Code(s): K72.00 - Acute and subacute hepatic failure without coma Code(s): K72.00 - Acute and subacute hepatic failure without coma Status: Acute Assessment and Plan: quite severe on admission as noted by elevated LFTs, bilirubin, and ammonia level on steroids on the hope this is acute alcohol hepatitis Gastroenterology recommendations noted (4) Portal vein thrombosis: Code(s): I81 - Portal vein thrombosis Status: Acute Assessment and Plan: as noted by imaging INR elevated already on heparin gtt (5) Alcohol abuse: Code(s): F10.10 - Alcohol abuse, uncomplicated Status: Acute Assessment and Plan: on thiamine and folate monitor for signs of withdrawal Will continue to follow. Subjective Date/time seen: 07/30/22 10:06 Appears that renal function and hyponatremia are slowly improving as evidenced by trend of labs in the last 24 - 48 hours; no apparent distress noted; no events overnight or earlier this morning; remains in good spirits at this time. Exam Narrative: General: WD/WN in NAD Heart: normal S1 and S2; no rub Lungs: clear to auscultation Abdomen: soft with mild distension, positive bowel sounds Extremities: no cyanosis or clubbing; trace edema Skin: no nodules Objective Data Vital Signs Vital Signs: Vital Signs Temp Pulse Pulse Resp BP Pulse Ox O2 Del Method 07/30/22 10:00 91 07/30/22 08:00 75 07/30/22 08:00 90 07/30/22 08:00 97.6 F 81 12 97/59 L 95 07/30/22 06:00 74 07/30/22 04:44 98.6 F 98 20 97/64 L 100 07/30/22 04:00 94 Room Air 07/30/22 04:00 87 07/30/22 04:00 87 07/30/22 02:00 82 07/30/22 00:00 Room Air 07/30/22 00:00 84 07/30/22 00:00 84 07/30/22 00:03 98.4 F 81 20 96/61 L 100 07/29/22 20:00 Room Air 07/29/22 20:00 83 07/29/22 22:00 83 07/29/22 20:00 112 H 07/29/22 20:04 98.6 F 116 H 20 104/61 100 07/29/22 18:00 99 07/29/22 16:00 91 07/29/22 16:00 93 07/29/22 16:00 91 Room Air 07/29/22 16:0
[2022-07-30 12:26] LABS: Hepatitis B Core Ab Total Nonreactive (Nonreactive)
[2022-07-30 12:26] LABS: Albumin Level 2.5 g/dL (3.5-5.1); Anion Gap 5 mmol/L (8-16); Blood Urea Nitrogen 52 mg/dL (9-20); Calcium 7.9 mg/dL (8.4-10.2); Carbon Dioxide 33 mmol/L (22-30); Chloride 89 mmol/L (98-107); Estimated CRCL calculation 35 ml/min; Estimated Glomerular Filt Rate 30; Glucose 108 mg/dL (65-110); Phosphorus 2.9 mg/dL (2.5-4.5); Potassium 3.4 mmol/L (3.4-5.0); Sodium 127 mmol/L (137-145)
--- NOTE | 2022-07-30 14:06 | PM.IMPN ---
Progress Note: A&P Assessment and Plan (1) Acute hepatic failure: Qualifiers: Hepatic coma status: without hepatic coma Qualified Code(s): K72.00 - Acute and subacute hepatic failure without coma Code(s): K72.00 - Acute and subacute hepatic failure without coma Status: Acute Assessment and Plan: Patient presented originally with complaints of nausea, vomiting and abdominal bloating and found to have AST 258 > ALT 123 and TB 10.1. Cirrhosis felt related to alcoholism but he is young so consider an underlying etiology for his liver failure as well. -CT A/P showing diffuse hepatic steatosis and ascites. -RUQ US showing hepatomegaly with cirrhosis and protal venous thrombosis. -Discriminant function 36. Meld score 36. Prednisone started -Influenza, COVID negative. -Hepatitis panel negative. -Iron 52, TIBC 123 42% sat with Ferritin 1260 c/w cirrhosis and not iron overload -paracentesis 07/27 with removal of 1750mL clear yellow fluid and not consistent with SBP; other tests pending -LFTs improving. TB 7.5. Hopefully alcoholic hepatitis that will improve -Work up for the liver failure in progress. Currently patient is being considered for EGD. -Continue supportive care. (2) CESARIO (acute kidney injury): Code(s): N17.9 - Acute kidney failure, unspecified Status: Acute Assessment and Plan: Cr 3.0 on admission and has climbed to 3.7. Suspect hepatorenal syndrome. -creatinine is improving slowly. This is encouraging. Continue to avoid nephrotoxic medication. -nephrology has been consulted appreciate their recommendations. -CT showing normal kidneys. -Renal US showing normal appearing kidneys. -C3 and C4 low related to liver dysfunction with poor synthetic function (INR elevated as well) -Urine eos negative. Urine Prot/Cr 0.06, Chata <5. -Creatinine unchanged but UOP increased so may be post-ATN diuresis? -Other testing pending; followup on results -Continue to monitor. (3) Acute hyponatremia: Code(s): E87.1 - Hypo-osmolality and hyponatremia Status: Acute Assessment and Plan: Hyponatremia on admission at 117 and is likely due to chronic alcohol use in setting of cirrhosis. Started on IV fluids but now stopped. -Sodium is improving slowly at 127. Mild hypokalemia was supplemented today. -Continue to monitor serial sodium levels. -Nephrology managing. (4) Portal vein thrombosis: Code(s): I81 - Portal vein thrombosis Status: Acute Assessment and Plan: The patient has portal venous thrombus and received 1 dose of therapeutic Lovenox in the ER. -Heparin drip added without bolus. -Discussed with GI. -Patient tolerating Heparin drip; HH stable. -Monitor HH closely. (5) Hepatorenal syndrome: Code(s): K76.7 - Hepatorenal syndrome Status: Acute Assessment and Plan: As above (6) Cirrhosis of liver with ascites: Qualifiers: Hepatic cirrhosis type: alcoholic cirrhosis Qualified Code(s): K70.31 - Alcoholic cirrhosis of liver with ascites Code(s): K74.60 - Unspecified cirrhosis of liver; R18.8 - Other ascites Status: Acute Assessment and Plan: Patient with cirrhosis with ascites and possible portal venous HTN. -Etiology felt to be related to alcoholism but consider other etiologies given his age. -He was educated about the benefits of abstaining from alcohol. -EGD planned to assess for varices but waiting for Na to improve. (7) Colitis: Code(s): K52.9 - Noninfective gastroenteritis and colitis, unspecified Status: Acute Assessment and Plan: CT scan showing diffuse wall thickening. -Suspect related to edema from liver failure and not infectious but now on Zosyn. -BCx NGTD/Pending -no diarrhea -Follow. -stop abx if cultures remain negative (8) Alcohol abuse: Code(s): F10.10 - Alcohol abuse, uncomplicated Status: Acute Assessmen
[2022-07-30] MEDS: POTASSIUM CHLORIDE 20 MEQ PACKET (FOR LIQUID) PO (14:50)
[2022-07-30 15:36] LABS: Chloride Rand Ur <20 mmol/L (32-290); Creatinine Random Urine 292 mg/dL (20-320)
--- NOTE | 2022-07-30 19:17 | PC.NURSE ---
This patient, Micky Goel, was transferred to [[id number] ] on 07/30/22 at 1815. Personal belongings sent with patient. Appropriate documentation sent with patient.
[2022-07-30 19:29] LABS: Glucose Peritoneal Fluid 105 mg/dL; LDH Peritoneal Fluid 74 U/L (<63); Total Protein Peritoneal Fluid <3.0 g/dL
[2022-07-31] MEDS: PIPERACILLIN/TAZOBACTAM SOD 2.25 GM in SODIUM CHLORIDE 0.9% IV 50 ML 100 ML IVPB ×4 (03:01→20:23)
[2022-07-31 06:01] LABS: Albumin 2.7 g/dL (3.8-4.8); Alpha 1 Globulin 0.2 g/dL (0.2-0.3); Alpha 2 Globulin 0.4 g/dL (0.5-0.9); Beta 1 Globulin 0.3 g/dL (0.4-0.6); Protein, Total 6.3 g/dL (6.1-8.1)
[2022-07-31 06:03] LABS: Creatinine, Random Urine 326 mg/dL (20-320); Total Protein/Creatinine Ratio 129 mg/g creat (25-148)
[2022-07-31 06:45] VITALS: BP 92/64; PULSE 89; RESP 16; TEMP 36.9; O2SAT 96
--- NOTE | 2022-07-31 08:04 | WPDGIPROGNO ---
Progress Note: A&P Assessment and Plan (1) Acute hepatic failure: Qualifiers: Hepatic coma status: without hepatic coma Qualified Code(s): K72.00 - Acute and subacute hepatic failure without coma Code(s): K72.00 - Acute and subacute hepatic failure without coma Status: Acute Assessment and Plan: he has elevation of his bilirubin, pro time, transaminases and also ammonia level. We can hope that this is acute alcoholic hepatitis and that these parameters will improve. It will take a few days before it is clear Whether that is the case. He has been started on prednisone 40 mg daily. 07/29/2022 transaminases had improved but are holding steady now, virtually unchanged from yesterday 07/31/2022 He has been on prednisone 40 mg per day. I think that we have reached the optimum benefit of that. I will begin a taper. (2) Hepatorenal syndrome: Code(s): K76.7 - Hepatorenal syndrome Status: Acute Assessment and Plan: Creatinine is over 3. He is being seen by Nephrology. his creatinine is stable at 3. 6 07/31/2022 creatinine down to 2.5 as of yesterday. Today's level is pending (3) CESARIO (acute kidney injury): Code(s): N17.9 - Acute kidney failure, unspecified Status: Acute Assessment and Plan: creatinine was 3 yesterday and today up to 3.4. nephrology is managing his fluids and electrolytes. 07/29/2022 BUN is actually little higher, 48. Creatinine however trending lower at 3.0 managed by Nephrology. His creatinine is coming down although BUN is still over 50. (4) Serum total bilirubin elevated: Code(s): R17 - Unspecified jaundice Status: Acute Assessment and Plan: Yesterday bilirubin was 10.1. Up to 11 today he denies pruritus. Hepatitis serology has been done and is negative. 07/27/2022 bilirubin has dropped to 9.0 07/28/2022 bilirubin continues to drop, 7.5 today 07/29/2022 bilirubin stable at 7.6. 07/31/2022 no further change in bilirubin. This will probably be his normal (5) Portal vein thrombosis: Code(s): I81 - Portal vein thrombosis Status: Acute Assessment and Plan: this has been discussed with Dr. Jean-Baptiste. Although he does have a prolonged protime. Is felt that heparin, at least the somewhat low does would be helpful to help with his portal vein thrombosis, if it is acute he has shown no signs of bleeding so far. The plan is to perform an EGD with treatment if any indicated of esophageal varices. Because of his hyponatremia however anesthesia feels that he is at too great a risk for the procedure today sodium is up to 123 but Anesthesia still refuses to sedate him. It is unlikely his sodium will go much higher than the mid 120s as is the case with many cirrhotic. 07/31/2022 sodium is finally up--127-- therefore it should be okay to proceed with EGD tomorrow (6) Alcohol abuse: Code(s): F10.10 - Alcohol abuse, uncomplicated Status: Acute Assessment and Plan: He does admit to drinking most of the day in the fact that is his primary source of nutrition. He eats very little, never breakfast or lunch. He is alert this morning but we will need to continue to observe for possible hepatorenal syndrome. (7) Acute hyponatremia: Code(s): E87.1 - Hypo-osmolality and hyponatremia Status: Acute Assessment and Plan: Initial sodium was 117. Today it is up to 121 07/27/2022 his sodium unfortunately has dropped back down to 119. Consequently EGD is canceled. 07/31/2022 the sodium is up to 127 probably this will probably be as high as it goes. (8) Ascites: Code(s): R18.8 - Other ascites Status: Acute Assessment and Plan: 1500 mL of ascitic fluid was successfully removed. Initially it appears to be a transudate. We would ideally start him on Aldactone and low-dose Lasix but with his renal insufficiency I will defer a
[2022-07-31 08:35] LABS: Partial Thromboplastin Time 110.4 SECONDS (22.3-36.8)
[2022-07-31] MEDS: THERAPEUTIC MULTIVITAMINS/MINERALS TAB (*BKC) 1 TABLET PO (09:38)
[2022-07-31] MEDS: predniSONE 20 MG, predniSONE 10 MG 30 MG PO (09:39)
[2022-07-31] MEDS: THIAMINE HCL 100 MG TABLET PO (09:39)
[2022-07-31] MEDS: NICOTINE (*PBKC) 21 MG PATCH 1 PATCH TRANSDERM (09:40)
[2022-07-31] MEDS: FOLIC ACID 1 MG TABLET PO (09:40)
[2022-07-31] MEDS: MIDODRINE HCL 2.5 MG TABLET PO ×3 (09:40→17:25)
[2022-07-31 10:52] LABS: Hematocrit 33.9 % (42.0-52.0); Hemoglobin 11.9 g/dL (14.0-18.0); Mean Corpuscular HGB Conc 35.1 g/dl (32-36); Mean Corpuscular Hemoglobin 34.3 pg (26-34); Mean Corpuscular Volume 97.7 fl (80-100); Mean Platelet Volume 10.4 fl (7.4-10.4); Platelet Count Result 118 k/mm3 (150-375); Red Blood Count 3.47 M/mm3 (4.6-6.20); Red Cell Distribution Width 18.3 % (11.5-14.5); White Blood Count 13.1 K/mm3 (4.5-10.0)
[2022-07-31 11:09] LABS: Anion Gap 4 mmol/L (8-16); Blood Urea Nitrogen 52 mg/dL (9-20); Calcium 7.3 mg/dL (8.4-10.2); Carbon Dioxide 30 mmol/L (22-30); Chloride 91 mmol/L (98-107); Estimated CRCL calculation 39 ml/min; Estimated Glomerular Filt Rate 35; Glucose 87 mg/dL (65-110); Potassium 3.4 mmol/L (3.4-5.0); Sodium 125 mmol/L (137-145)
--- NOTE | 2022-07-31 13:00 | PM.IMPN ---
Progress Note: A&P Assessment and Plan (1) Acute hepatic failure: Qualifiers: Hepatic coma status: without hepatic coma Qualified Code(s): K72.00 - Acute and subacute hepatic failure without coma Code(s): K72.00 - Acute and subacute hepatic failure without coma Status: Acute Assessment and Plan: quite severe on admission as noted by elevated LFTs, bilirubin, and ammonia level on steroids on the hope this is acute alcohol hepatitis Gastroenterology recommendations noted; plan for EGD in a.m.. Bilirubin is improving slowly Ammonia level normal AST/ALT/Alk phos only mildly elevated. Improvement of albumin at 2.5. (2) CESARIO (acute kidney injury): Code(s): N17.9 - Acute kidney failure, unspecified Status: Acute Assessment and Plan: improvement noted appears to have peaked/plateaued 3.6mg/dl. Creatinine is improving slowly down to 2.2 today. unclear baseline renal function -- assuming normal prior to admission suspect a component of prerenal azotemia (since only source of nutrition had been alcohol) however, his liver dysfunction may have precipitated possible hepatorenal syndrome as well but this may just all be ATN from altered hemodynamics due to acute liver disease physiology (seem more likely at this point) evaluation to date: urine electrolytes prerenal -- due to volume depletion versus liver physiology versus both(?) renal ultrasound unremarkable urine eosinophils negative no proteinuria low complements but other serologies pending off IVFs at this time (suspect this may have worsened this ascites) on midodrine (to see if a higher BP may help improve kidney function) -- unclear if helping or not follow repeat labs and UOP (3) Hyponatremia: Code(s): E87.1 - Hypo-osmolality and hyponatremia Status: Acute Assessment and Plan: slow improvement noted as well; now the serum sodium has been fluctuating between 125 and 127. Continue management per Nephrology. acute versus chronic versus acute on chronic?? -- no previous labs for comparison this is further complicated by his CESARIO and presumed acute liver injury both conditions can lead to hyponatremia only mild improvement noted with normal saline IVFs TSH and cortisol okay; serum/urine osmolality and SPEP/UPEP pending suspect chronic alcohol use in the setting of liver cirrhosis to blame -- however, cannot discount CESARIO playing a role as well continue fluid restriction (1800cc currently) follow trend of sodium level (4) Portal vein thrombosis: Code(s): I81 - Portal vein thrombosis Status: Acute Assessment and Plan: as noted by imaging INR elevated already on heparin gtt (5) Alcohol abuse: Code(s): F10.10 - Alcohol abuse, uncomplicated Status: Acute Assessment and Plan: on thiamine and folate monitor for signs of withdrawal Will continue to follow. Subjective Date/time seen: 07/31/22 17:56 Interval history: S: Patient was seen examined at the bedside. He denies any complaints. He has ambulated in the hallways. He is in seeing and drinking well. There is no apparent distress noted. Review of Systems Review of Systems: CONSTITUTIONAL: Negative for any fevers, chills, night sweats, tiredness, fatigue, malaise, anorexia or weight loss. CARDIOVASCULAR: Negative for chest pain, palpitations, dizziness, orthopnea or lower extremity edema. RESPIRATORY: Negative for shortness of breath, cough, wheezing, sputum. GENITOURINARY: Negative for frequency, nocturia, dysuria, hematuria. GYNECOLOGIC: Negative for abnormal bleeding. HEMATOLOGIC: Negative for any abnormal bleeding or bruising. MUSCULOSKELETAL: Negative for joint swelling, stiffness or pain. SKIN: Negative for rashes, eruptions, lesions or dryness. NEUROLOGIC: Negative for any focal neurologic complaints. PSYCHIATRIC: Negative for anxiety, panic, depression. Exa
--- NOTE | 2022-07-31 13:00 | P.PNIM_ITS ---
Progress Note: A&P Assessment and Plan (1) Acute hepatic failure: Qualifiers: Hepatic coma status: without hepatic coma Qualified Code(s): K72.00 - Acute and subacute hepatic failure without coma Code(s): K72.00 - Acute and subacute hepatic failure without coma Status: Acute Assessment and Plan: * quite severe on admission as noted by elevated LFTs, bilirubin, and ammonia level * on steroids on the hope this is acute alcohol hepatitis * Gastroenterology recommendations noted; plan for EGD in a.m.. * Bilirubin is improving slowly * Ammonia level normal * AST/ALT/Alk phos only mildly elevated. * Improvement of albumin at 2.5. (2) CESARIO (acute kidney injury): Code(s): N17.9 - Acute kidney failure, unspecified Status: Acute Assessment and Plan: * improvement noted * appears to have peaked/plateaued 3.6mg/dl. Creatinine is improving slowly down to 2.2 today. * unclear baseline renal function -- assuming normal prior to admission * suspect a component of prerenal azotemia (since only source of nutrition had been alcohol) * however, his liver dysfunction may have precipitated possible hepatorenal syndrome as well * but this may just all be ATN from altered hemodynamics due to acute liver disease physiology (seem more likely at this point) * evaluation to date: * urine electrolytes prerenal -- due to volume depletion versus liver physiology versus both(?) * renal ultrasound unremarkable * urine eosinophils negative * no proteinuria * low complements but other serologies pending * off IVFs at this time (suspect this may have worsened this ascites) * on midodrine (to see if a higher BP may help improve kidney function) -- unclear if helping or not * follow repeat labs and UOP (3) Hyponatremia: Code(s): E87.1 - Hypo-osmolality and hyponatremia Status: Acute Assessment and Plan: * slow improvement noted as well; now the serum sodium has been fluctuating between 125 and 127. Continue management per Nephrology. * acute versus chronic versus acute on chronic?? -- no previous labs for julisa tam * this is further complicated by his CESARIO and presumed acute liver injury * both conditions can lead to hyponatremia * only mild improvement noted with normal saline IVFs * TSH and cortisol okay; serum/urine osmolality and SPEP/UPEP pending * suspect chronic alcohol use in the setting of liver cirrhosis to blame -- however, cannot discount CESARIO playing a role as well * continue fluid restriction (1800cc currently) * follow trend of sodium level (4) Portal vein thrombosis: Code(s): I81 - Portal vein thrombosis Status: Acute Assessment and Plan: * as noted by imaging * INR elevated already * on heparin gtt (5) Alcohol abuse: Code(s): F10.10 - Alcohol abuse, uncomplicated Status: Acute Assessment and Plan: * on thiamine and folate * monitor for signs of withdrawal Will continue to follow. Subjective Date/time seen: 07/31/22 17:56 Interval history: S: Patient was seen examined at the bedside. He denies any complaints. He has ambulated in the hallways. He is in seeing and drinking well. There is no apparent distress noted. Review of Systems Review of Systems: CONSTITUTIONAL: Negative for any fevers, chills, night sweats, tiredness, fatigue, malaise, anorexia or weight loss. CARDIOVASCULAR: Negative for chest pain, palpitations, dizziness, orthopnea or lower extremity edema. RESPIRATORY: Negative
[2022-07-31 13:46] LABS: Partial Thromboplastin Time 62.4 SECONDS (22.3-36.8)
--- NOTE | 2022-07-31 13:48 | PM.PNNEP ---
Progress Note: A&P Assessment and Plan (1) CESARIO (acute kidney injury): Code(s): N17.9 - Acute kidney failure, unspecified Status: Acute Assessment and Plan: improvement noted appears to have peaked/plateaued 3.6mg/dl unclear baseline renal function -- assuming normal prior to admission suspect a component of prerenal azotemia (since only source of nutrition had been alcohol) however, his liver dysfunction may have precipitated possible hepatorenal syndrome as well but this may just all be ATN from altered hemodynamics due to acute liver disease physiology (seem more likely at this point) evaluation to date: urine electrolytes prerenal -- due to volume depletion versus liver physiology versus both(?) renal ultrasound unremarkable urine eosinophils negative no proteinuria low complements but other serologies pending off IVFs at this time (suspect this may have worsened this ascites) on midodrine (to see if a higher BP may help improve kidney function) -- unclear if helping or not follow repeat labs and UOP (2) Hyponatremia: Code(s): E87.1 - Hypo-osmolality and hyponatremia Status: Acute Assessment and Plan: slow improvement noted as well acute versus chronic versus acute on chronic?? -- no previous labs for comparison this is further complicated by his CESARIO and presumed acute liver injury both conditions can lead to hyponatremia only mild improvement noted with normal saline IVFs TSH and cortisol okay; serum/urine osmolality and SPEP/UPEP pending suspect chronic alcohol use in the setting of liver cirrhosis to blame -- however, cannot discount CESARIO playing a role as well continue fluid restriction (1800cc currently) follow trend of sodium level (3) Acute hepatic failure: Qualifiers: Hepatic coma status: without hepatic coma Qualified Code(s): K72.00 - Acute and subacute hepatic failure without coma Code(s): K72.00 - Acute and subacute hepatic failure without coma Status: Acute Assessment and Plan: quite severe on admission as noted by elevated LFTs, bilirubin, and ammonia level on steroids on the hope this is acute alcohol hepatitis Gastroenterology recommendations noted (4) Portal vein thrombosis: Code(s): I81 - Portal vein thrombosis Status: Acute Assessment and Plan: as noted by imaging INR elevated already on heparin gtt (5) Alcohol abuse: Code(s): F10.10 - Alcohol abuse, uncomplicated Status: Acute Assessment and Plan: on thiamine and folate monitor for signs of withdrawal Will continue to follow. Subjective Date/time seen: 07/31/22 13:48 No apparent distress voiced at this time; renal function continues to slowly improve although sodium continues to fluctuate; no issues/events overnight or earlier this morning; feels reasonably well; eating and drinking well; no apparent distress noted. Exam Narrative: General: WD/WN in NAD Heart: normal S1 and S2; no rub Lungs: clear to auscultation Abdomen: soft with mild distension, positive bowel sounds Extremities: no cyanosis or clubbing; trace edema Skin: warm and dry Objective Data Vital Signs Vital Signs: Vital Signs Temp Pulse Resp BP Pulse Ox O2 Del Method 07/31/22 13:00 99.0 F 83 16 96/65 L 96 07/31/22 09:40 Room Air 07/31/22 06:45 98.4 F 89 16 92/64 L 96 07/30/22 23:22 98.5 F 94 16 107/76 93 07/30/22 18:15 97.9 F 88 20 103/73 97 07/30/22 19:41 96 Room Air Intake/Output Intake/Output: Intake & Output 07/28/22 07/29/22 07/30/22 07/31/22 23:59 23:59 23:59 23:59 Intake Total 2600 1502 1758 800 Output Total 1000 1200 800 Balance 1600 302 958 800 Meds/Results Medications: Active Medications Generic Name Dose Route Start Last Admin Trade Name Freq PRN Reason Stop Dose Admin Folic Acid 1 mg 07/27/22 09:00 07/31/22 09:40 Fol
--- NOTE | 2022-07-31 13:48 | P.PNNP_ITS ---
Progress Note: A&P Assessment and Plan (1) CESARIO (acute kidney injury): Code(s): N17.9 - Acute kidney failure, unspecified Status: Acute Assessment and Plan: * improvement noted * appears to have peaked/plateaued 3.6mg/dl * unclear baseline renal function -- assuming normal prior to admission * suspect a component of prerenal azotemia (since only source of nutrition had been alcohol) * however, his liver dysfunction may have precipitated possible hepatorenal syndrome as well * but this may just all be ATN from altered hemodynamics due to acute liver disease physiology (seem more likely at this point) * evaluation to date: * urine electrolytes prerenal -- due to volume depletion versus liver physiology versus both(?) * renal ultrasound unremarkable * urine eosinophils negative * no proteinuria * low complements but other serologies pending * off IVFs at this time (suspect this may have worsened this ascites) * on midodrine (to see if a higher BP may help improve kidney function) -- unclear if helping or not * follow repeat labs and UOP (2) Hyponatremia: Code(s): E87.1 - Hypo-osmolality and hyponatremia Status: Acute Assessment and Plan: * slow improvement noted as well * acute versus chronic versus acute on chronic?? -- no previous labs for comparison * this is further complicated by his CESARIO and presumed acute liver injury * both conditions can lead to hyponatremia * only mild improvement noted with normal saline IVFs * TSH and cortisol okay; serum/urine osmolality and SPEP/UPEP pending * suspect chronic alcohol use in the setting of liver cirrhosis to blame -- however, cannot discount CESARIO playing a role as well * continue fluid restriction (1800cc currently) * follow trend of sodium level (3) Acute hepatic failure: Qualifiers: Hepatic coma status: without hepatic coma Qualified Code(s): K72.00 - Acute and subacute hepatic failure without coma Code(s): K72.00 - Acute and subacute hepatic failure without coma Status: Acute Assessment and Plan: * quite severe on admission as noted by elevated LFTs, bilirubin, and ammonia level * on steroids on the hope this is acute alcohol hepatitis * Gastroenterology recommendations noted (4) Portal vein thrombosis: Code(s): I81 - Portal vein thrombosis Status: Acute Assessment and Plan: * as noted by imaging * INR elevated already * on heparin gtt (5) Alcohol abuse: Code(s): F10.10 - Alcohol abuse, uncomplicated Status: Acute Assessment and Plan: * on thiamine and folate * monitor for signs of withdrawal Will continue to follow. Subjective Date/time seen: 07/31/22 13:48 No apparent distress voiced at this time; renal function continues to slowly improve although sodium continues to fluctuate; no issues/events overnight or earlier this morning; feels reasonably well; eating and drinking well; no apparent distress noted. Exam Narrative: General: WD/WN in NAD Heart: normal S1 and S2; no rub Lungs: clear to auscultation Abdomen: soft with mild distension, positive bowel sounds Extremities: no cyanosis or clubbing; trace edema Skin: warm and dry Objective Data Vital Signs Vital Signs: Vital Signs Temp Pulse Resp BP Pulse Ox O2 Del Method 07/31/22 13:00 99.0 F 83 16 96/65 L 96 12/
[2022-07-31 14:00] VITALS: BP 96/65; PULSE 83; RESP 16; TEMP 37.2; O2SAT 96
[2022-07-31] MEDS: HEPARIN SODIUM 5,000 UNITS/ML VIAL 2500 UNITS IV PUSH (15:31)
[2022-07-31 16:02] LABS: Lambda Light Chain 63.7 mg/L (5.7-26.3)
[2022-07-31 19:55] VITALS: O2SAT 96
[2022-07-31 20:50] LABS: Partial Thromboplastin Time 165.8 SECONDS (22.3-36.8)
--- NOTE | 2022-07-31 20:59 | PC.NURSE ---
critical ptt 165.8 holding herpain drip x1 hour then decrease by 2ml/hr to 5ml/hr. Informed MD Drake continue heparin protocol orders.
[2022-07-31 21:51] VITALS: BP 105/62; PULSE 50; RESP 16; TEMP 36.7; O2SAT 93
--- NOTE | 2022-07-31 22:13 | PC.NURSE ---
next ptt at 400 am 08/01/22
[2022-08-01] MEDS: PIPERACILLIN/TAZOBACTAM SOD 2.25 GM in SODIUM CHLORIDE 0.9% IV 50 ML 100 ML IVPB ×2 (02:05→09:39)
--- NOTE | 2022-08-01 05:27 | PC.NURSE ---
I waiting PTT resulted for heparin drip titration
[2022-08-01 06:00] VITALS: BP 102/66; PULSE 85; RESP 16; TEMP 36.4; O2SAT 95
[2022-08-01 06:47] LABS: Partial Thromboplastin Time 52.6 SECONDS (22.3-36.8)
--- NOTE | 2022-08-01 07:05 | PC.NURSE ---
heparin drip stopped, pt copious bleeding from puncture site of paracentesis. Shirley AMARO reported to MD Izaguirre.
[2022-08-01 07:37] LABS: Anion Gap 4 mmol/L (8-16); Blood Urea Nitrogen 47 mg/dL (9-20); Calcium 7.4 mg/dL (8.4-10.2); Carbon Dioxide 32 mmol/L (22-30); Chloride 90 mmol/L (98-107); Estimated CRCL calculation 45 ml/min; Estimated Glomerular Filt Rate 41; Glucose 93 mg/dL (65-110); Sodium 126 mmol/L (137-145)
[2022-08-01 09:29] LABS: INR 1.7; Prothrombin Time 19.6 Seconds (11.1-14.7)
--- NOTE | 2022-08-01 09:39 | PCNWS ---
Weekly nutritional screen. Patient is tolerating current Renal dialysis diet with adequate intake at 75% of meals . No weight loss reported. No nutritional needs at this time.
[2022-08-01] MEDS: MIDODRINE HCL 2.5 MG TABLET PO ×3 (09:43→18:19)
--- NOTE | 2022-08-01 10:01 | P.PNIM_ITS ---
Progress Note: A&P Assessment and Plan (1) Acute hepatic failure: Qualifiers: Hepatic coma status: without hepatic coma Qualified Code(s): K72.00 - Acute and subacute hepatic failure without coma Code(s): K72.00 - Acute and subacute hepatic failure without coma Status: Acute Assessment and Plan: * Resolved. It wasquite severe on admission as noted by elevated LFTs, bilirubin, and ammonia level * bleeding noted on dressing at ascites. Side. 0 UA reassuring. CBC from this morning pending. Repeat hemoglobin and hematocrit. Currently patient asymptomatic; no dizziness or lightheadedness. He is not tachycardic. He does not a appear to be in shock. * currently being managed with steroids on the hope this is acute alcohol hepatitis * Gastroenterology recommendations noted; plan for EGD today may be deferred out of concern for possible bleeding. * Bilirubin is improving slowly * Ammonia level normal * AST/ALT/Alk phos only mildly elevated. * Improvement of albumin at 2.5. (2) CESARIO (acute kidney injury): Code(s): N17.9 - Acute kidney failure, unspecified Status: Acute Assessment and Plan: * improvement noted * appears to have peaked/plateaued 3.6mg/dl. Creatinine is improving slowly down to 1.9 today. * unclear baseline renal function -- assuming normal prior to admission * suspect a component of prerenal azotemia (since only source of nutrition had been alcohol) * however, his liver dysfunction may have precipitated possible hepatorenal syndrome as well * but this may just all be ATN from altered hemodynamics due to acute liver disease physiology (seem more likely at this point) * evaluation to date: * urine electrolytes prerenal -- due to volume depletion versus liver physiology versus both(?) * renal ultrasound unremarkable * urine eosinophils negative * no proteinuria * low complements but other serologies pending * off IVFs at this time (suspect this may have worsened this ascites) * on midodrine (to see if a higher BP may help improve kidney function) -- unclear if helping or not * follow repeat labs and UOP (3) Hyponatremia: Code(s): E87.1 - Hypo-osmolality and hyponatremia Status: Acute Assessment and Plan: * slow improvement noted as well; now the serum sodium has been fluctuating between 125 and 127. Continue management per Nephrology. * acute versus chronic versus acute on chronic?? -- no previous labs for comparison * this is further complicated by his CESARIO and presumed acute liver injury * both conditions can lead to hyponatremia * only mild improvement noted with normal saline IVFs * TSH and cortisol okay; serum/urine osmolality and SPEP/UPEP pending * suspect chronic alcohol use in the setting of liver cirrhosis to blame -- however, cannot discount CESARIO playing a role as well * continue fluid restriction (1800cc currently) * follow trend of sodium level (4) Portal vein thrombosis: Code(s): I81 - Portal vein thrombosis Status: Acute Assessment and Plan: * as noted by imaging * INR elevated already * on heparin gtt * Heparin on hold out of concern for possible internal bleeding. KUB was anabel ssuring. We will this covers restarting heparin drip with GI. (5) Alcohol abuse: Code(s): F10.10 - Alcohol abuse, uncomplicated Status: Acute Assessment and Plan: * on thiamine and folate * monitor for signs of withdrawal * Patient instructed about importance of abstinence Will continue to follow. Time
--- NOTE | 2022-08-01 10:01 | PM.IMPN ---
Progress Note: A&P Assessment and Plan (1) Acute hepatic failure: Qualifiers: Hepatic coma status: without hepatic coma Qualified Code(s): K72.00 - Acute and subacute hepatic failure without coma Code(s): K72.00 - Acute and subacute hepatic failure without coma Status: Acute Assessment and Plan: Resolved. It wasquite severe on admission as noted by elevated LFTs, bilirubin, and ammonia level bleeding noted on dressing at ascites. Side. 0 UA reassuring. CBC from this morning pending. Repeat hemoglobin and hematocrit. Currently patient asymptomatic; no dizziness or lightheadedness. He is not tachycardic. He does not a appear to be in shock. currently being managed with steroids on the hope this is acute alcohol hepatitis Gastroenterology recommendations noted; plan for EGD today may be deferred out of concern for possible bleeding. Bilirubin is improving slowly Ammonia level normal AST/ALT/Alk phos only mildly elevated. Improvement of albumin at 2.5. (2) CESARIO (acute kidney injury): Code(s): N17.9 - Acute kidney failure, unspecified Status: Acute Assessment and Plan: improvement noted appears to have peaked/plateaued 3.6mg/dl. Creatinine is improving slowly down to 1.9 today. unclear baseline renal function -- assuming normal prior to admission suspect a component of prerenal azotemia (since only source of nutrition had been alcohol) however, his liver dysfunction may have precipitated possible hepatorenal syndrome as well but this may just all be ATN from altered hemodynamics due to acute liver disease physiology (seem more likely at this point) evaluation to date: urine electrolytes prerenal -- due to volume depletion versus liver physiology versus both(?) renal ultrasound unremarkable urine eosinophils negative no proteinuria low complements but other serologies pending off IVFs at this time (suspect this may have worsened this ascites) on midodrine (to see if a higher BP may help improve kidney function) -- unclear if helping or not follow repeat labs and UOP (3) Hyponatremia: Code(s): E87.1 - Hypo-osmolality and hyponatremia Status: Acute Assessment and Plan: slow improvement noted as well; now the serum sodium has been fluctuating between 125 and 127. Continue management per Nephrology. acute versus chronic versus acute on chronic?? -- no previous labs for comparison this is further complicated by his CESARIO and presumed acute liver injury both conditions can lead to hyponatremia only mild improvement noted with normal saline IVFs TSH and cortisol okay; serum/urine osmolality and SPEP/UPEP pending suspect chronic alcohol use in the setting of liver cirrhosis to blame -- however, cannot discount CESARIO playing a role as well continue fluid restriction (1800cc currently) follow trend of sodium level (4) Portal vein thrombosis: Code(s): I81 - Portal vein thrombosis Status: Acute Assessment and Plan: as noted by imaging INR elevated already on heparin gtt Heparin on hold out of concern for possible internal bleeding. KUB was reassuring. We will this covers restarting heparin drip with GI. (5) Alcohol abuse: Code(s): F10.10 - Alcohol abuse, uncomplicated Status: Acute Assessment and Plan: on thiamine and folate monitor for signs of withdrawal Patient instructed about importance of abstinence Will continue to follow. Time Spent With Patient Time with patient: 15 - 25 minutes Subjective Date/time seen: 08/01/22 10:48 Interval history: S: Patient was seen examined at the bedside. He denies any complaints. EARLIER TODAY HIS DRESSING WAS BLOOD TINGED AND WAS CONCERNED ABOUT POSSIBLE INTRA-ABDOMINAL BLEEDING. KUB WAS ORDERED. Review of Systems Review of Systems: All systems reviewed & are unremarkable except as noted in HPI and below Constitutional:
--- NOTE | 2022-08-01 10:14 | WPDANESEPPF ---
Anes - Initial Pre Proc Eval Procedure: Operation Date: 07/28/22 16:00 Proposed Procedures p Esophagogastroduodenoscopy EGD - Jose Alfredo Alvarado MD Operation Date: 08/01/22 15:00 Proposed Procedures p Esophagogastroduodenoscopy - Jose Alfredo Alvarado MD Date/Time: 08/01/22 10:14 Surgeon: Aniya Ernst MD Pre Op Diagnosis: Cirrhosis, CESARIO, hyponatremia Patient Data Age: 31 Gender: M Height: 1.68 m Weight: 65.8 kg Last Vital Signs Temp 36.4 C L 08/01/22 06:00 Pulse 85 08/01/22 06:00 Resp 16 08/01/22 06:00 BP 102/66 08/01/22 06:00 Pulse Ox 95 08/01/22 06:00 O2 Del Method Room Air 07/31/22 21:01 Allergies Allergy/AdvReac Type Severity Reaction Status Date / Time No Known Allergies Allergy Unverified 05/07/14 15:38 Home Medications Medication Instructions Recorded Confirmed Type ibuprofen 200 mg tablet 200 mg PO Q6H PRN Pain 07/25/22 07/25/22 History melatonin 5 mg tablet 5 mg PO HS PRN Sleep 07/25/22 07/25/22 History Laboratory Tests 07/27/22 07/31/22 07/31/22 03:28 07:14 07:14 WBC 13.1 K/mm3 H K/mm3 (4.5-10.0) RBC 3.47 M/mm3 L M/mm3 (4.6-6.20) Hgb 11.9 g/dL L g/dL (14.0-18.0) Hct 33.9 % L % (42.0-52.0) MCV 97.7 fl D fl (80-100) MCH 34.3 pg H pg (26-34) MCHC 35.1 g/dl g/dl (32-36) RDW 18.3 % H % (11.5-14.5) Plt Count 118 k/mm3 L k/mm3 (150-375) MPV 10.4 fl fl (7.4-10.4) PT INR APTT Sodium 125 mmol/L L mmol/L (137-145) Potassium 3.4 mmol/L mmol/L (3.4-5.0) Chloride 91 mmol/L L mmol/L (98-107) Carbon Dioxide 30 mmol/L mmol/L (22-30) Anion Gap 4 mmol/L L mmol/L (8-16) BUN 52 mg/dL H mg/dL (9-20) Creatinine 2.20 mg/dL H mg/dL (0.7-1.3) Estim Creat Clear Calc 39 ml/min ml/min Estimated GFR 35 L (59 - ) Glucose 87 mg/dL mg/dL (65-110) Calcium 7.3 mg/dL L mg/dL (8.4-10.2) [place]/Lambda Ratio 1.40 (0.26-1.65) Free [place] Light Chains 89.0 mg/L H mg/L (3.3-19.4) Free [place] Light Chain 63.7 mg/L H mg/L (5.7-26.3) 07/31/22 07/31/22 08/01/22 13:15 20:15 05:54 WBC Pending RBC Pending Hgb Pending Hct Pending MCV Pending MCH Pending MCHC Pending RDW Pending Plt Count Pending MPV Pending PT INR APTT 62.4 SECONDS H SECONDS 165.8 SECONDS H* SECONDS (22.3-36.8) (22.3-36.8) Sodium Potassium Chloride Carbon Dioxide Anion Gap BUN Creatinine Estim Creat Clear Calc Estimated GFR Glucose Calcium [place]/Lambda Ratio Free [place] Light Chains Free [place] Light Chain 08/01/22 08/01/22 08/01/22 05:54 05:54 05:55 WBC RBC Hgb Hct MCV MCH MCHC RDW Plt Count MPV PT 19.6 Seconds H Seconds (11.1-14.7) INR 1.7 APTT 52.6 SECONDS H SECONDS (22.3-36.8) Sodium 126 mmol/L L mmol/L (137-145) Potassium 3.0 mmol/L L mmol/L (3.4-5.0) Chloride 90 mmol/L L mmol/L (98-107) Carbon Dioxide 32 mmol/L H mmol/L (22-30) Anion Gap 4 mmol/L L mmol/L (8-16) BUN 47 mg/dL H mg/dL (9-20) Creatinine 1.90 mg/dL H mg/dL (0.7-1.3) Estim Creat Clear Calc 45 ml/min ml/min Estimated GFR 41 L (59 - ) Glucose 93 mg/dL mg/dL (65-110) Calcium 7.4 mg/dL L mg/dL (8.4-10.2) [place]/Lambda Ratio
[2022-08-01 10:32] LABS: Complement Total CH50 26 U/mL (31-60)
[2022-08-01 11:27] LABS: Hematocrit 33.8 % (42.0-52.0); Hemoglobin 12.1 g/dL (14.0-18.0); Mean Corpuscular HGB Conc 35.8 g/dl (32-36); Mean Corpuscular Volume 97.7 fl (80-100); Mean Platelet Volume 10.4 fl (7.4-10.4); Platelet Count Result 119 k/mm3 (150-375); Red Blood Count 3.46 M/mm3 (4.6-6.20); Red Cell Distribution Width 18.3 % (11.5-14.5); White Blood Count 12.9 K/mm3 (4.5-10.0)
[2022-08-01 11:47] LABS: Anti Glomerular Basement Memb <1.0 AI (<1.0)
[2022-08-01] MEDS: KCL 20 MEQ/SW 100 ML 100 ML 50 MEQ IVPB (12:25)
[2022-08-01] MEDS: LACTATED RINGERS 1,000 ML 150 ML IV CONT (13:40)
[2022-08-01 13:43] VITALS: BP 105/65; PULSE 85; RESP 18; TEMP 36.9; O2SAT 97
[2022-08-01 14:51] VITALS: BP 106/72; PULSE 91; RESP 18; O2SAT 91
[2022-08-01 15:01] VITALS: BP 104/70; PULSE 90; RESP 18; O2SAT 97
[2022-08-01 15:08] VITALS: BP 107/71; PULSE 92; RESP 18; O2SAT 97
[2022-08-01] MEDS: predniSONE 20 MG, predniSONE 10 MG 30 MG PO (15:25)
[2022-08-01] MEDS: THERAPEUTIC MULTIVITAMINS/MINERALS TAB (*BKC) 1 TABLET PO (15:25)
[2022-08-01] MEDS: FOLIC ACID 1 MG TABLET PO (15:25)
[2022-08-01] MEDS: THIAMINE HCL 100 MG TABLET PO (15:25)
[2022-08-01] MEDS: NICOTINE (*PBKC) 21 MG PATCH 1 PATCH TRANSDERM (15:26)
--- NOTE | 2022-08-01 17:09 | P.PNNP_ITS ---
Progress Note: A&P Assessment and Plan (1) CESARIO (acute kidney injury): Code(s): N17.9 - Acute kidney failure, unspecified Status: Acute Assessment and Plan: * acute kidney injury. * evaluation to date: * urine electrolytes prerenal -- due to volume depletion versus liver physiology versus both(?) * renal ultrasound unremarkable * urine eosinophils negative * CPK is normal * no proteinuria * low complements. This may be due to poor since this is due to the liver. * GBM, DNA, and Don antigen are negative. [place] lambda 1.4. * other serologies pending * CESARIO due to multiple factors such as pre renal azotemia and/or ATN. * Since he is better it is unlikely to be hepatorenal syndrome. * off IVFs at this time (suspect this may have worsened this ascites) * on midodrine (to see if a higher BP may help improve kidney function) -- unclear if helping or not * Creatinine is down to 1.9. * Will continue to follow on oral intake only. * follow repeat labs and UOP (2) Hyponatremia: Code(s): E87.1 - Hypo-osmolality and hyponatremia Status: Acute Assessment and Plan: * Hyponatremia. * acute versus chronic versus acute on chronic?? -- no previous labs for comparison * this is further complicated by his CESARIO and presumed acute liver injury * both conditions can lead to hyponatremia * only mild improvement noted with normal saline IVFs * TSH and cortisol okay; serum/urine osmolality and SPEP/UPEP pending * suspect chronic alcohol use in the setting of liver cirrhosis to blame -- however, cannot discount CESARIO playing a role as well * continue fluid restriction * Since he has plateaued, will enhance fluid restriction [id number]. * follow trend of sodium level (3) Acute hepatic failure: Qualifiers: Hepatic coma status: without hepatic coma Qualified Code(s): K72.00 - Acute and subacute hepatic failure without coma Code(s): K72.00 - Acute and subacute hepatic failure without coma Status: Acute Assessment and Plan: * quite severe on admission as noted by elevated LFTs, bilirubin, and ammonia level * on steroids on the hope this is acute alcohol hepatitis * Gastroenterology recommendations noted * EGD done. Grade 2 varices, reflux esophagitis and a superficial ulcer in the duodenal bulb. (4) Portal vein thrombosis: Code(s): I81 - Portal vein thrombosis Status: Acute Assessment and Plan: * as noted by imaging * INR elevated already (1.7) * Off heparin drip. (5) Alcohol abuse: Code(s): F10.10 - Alcohol abuse, uncomplicated Status: Acute Assessment and Plan: * on thiamine and folate * monitor for signs of withdrawal Will continue to follow. Subjective Date/time seen: 08/01/22 17:09 Interval history: patient feels okay. He just had a colonoscopy. Eating okay. doing well on his fluid restriction Exam Narrative: General: WD/WN in NAD Heart: normal S1 and S2; no rub Lungs: clear Abdomen: soft with mild distension, positive bowel sounds Extremities: trace edema Skin: no rash Objective Data Vital Signs Vital Signs: Vital Signs - 24 hr 07/31/22 19:55 07/31/22 21:01 07/31/22 21:51 Temperature 98.0 F Pulse Rate 50 L Respiratory Rate 16 Blood Pressure 105/62 Pulse Oximetry 96 93
--- NOTE | 2022-08-01 17:09 | PM.PNNEP ---
Progress Note: A&P Assessment and Plan (1) CESARIO (acute kidney injury): Code(s): N17.9 - Acute kidney failure, unspecified Status: Acute Assessment and Plan: acute kidney injury. evaluation to date: urine electrolytes prerenal -- due to volume depletion versus liver physiology versus both(?) renal ultrasound unremarkable urine eosinophils negative CPK is normal no proteinuria low complements. This may be due to poor since this is due to the liver. GBM, DNA, and Don antigen are negative. [place] lambda 1.4. other serologies pending CESARIO due to multiple factors such as pre renal azotemia and/or ATN. Since he is better it is unlikely to be hepatorenal syndrome. off IVFs at this time (suspect this may have worsened this ascites) on midodrine (to see if a higher BP may help improve kidney function) -- unclear if helping or not Creatinine is down to 1.9. Will continue to follow on oral intake only. follow repeat labs and UOP (2) Hyponatremia: Code(s): E87.1 - Hypo-osmolality and hyponatremia Status: Acute Assessment and Plan: Hyponatremia. acute versus chronic versus acute on chronic?? -- no previous labs for comparison this is further complicated by his CESARIO and presumed acute liver injury both conditions can lead to hyponatremia only mild improvement noted with normal saline IVFs TSH and cortisol okay; serum/urine osmolality and SPEP/UPEP pending suspect chronic alcohol use in the setting of liver cirrhosis to blame -- however, cannot discount CESARIO playing a role as well continue fluid restriction Since he has plateaued, will enhance fluid restriction [id number]. follow trend of sodium level (3) Acute hepatic failure: Qualifiers: Hepatic coma status: without hepatic coma Qualified Code(s): K72.00 - Acute and subacute hepatic failure without coma Code(s): K72.00 - Acute and subacute hepatic failure without coma Status: Acute Assessment and Plan: quite severe on admission as noted by elevated LFTs, bilirubin, and ammonia level on steroids on the hope this is acute alcohol hepatitis Gastroenterology recommendations noted EGD done. Grade 2 varices, reflux esophagitis and a superficial ulcer in the duodenal bulb. (4) Portal vein thrombosis: Code(s): I81 - Portal vein thrombosis Status: Acute Assessment and Plan: as noted by imaging INR elevated already (1.7) Off heparin drip. (5) Alcohol abuse: Code(s): F10.10 - Alcohol abuse, uncomplicated Status: Acute Assessment and Plan: on thiamine and folate monitor for signs of withdrawal Will continue to follow. Subjective Date/time seen: 08/01/22 17:09 Interval history: patient feels okay. He just had a colonoscopy. Eating okay. doing well on his fluid restriction Exam Narrative: General: WD/WN in NAD Heart: normal S1 and S2; no rub Lungs: clear Abdomen: soft with mild distension, positive bowel sounds Extremities: trace edema Skin: no rash Objective Data Vital Signs Vital Signs: Vital Signs - 24 hr 07/31/22 19:55 07/31/22 21:01 07/31/22 21:51 Temperature 98.0 F Pulse Rate 50 L Respiratory Rate 16 Blood Pressure 105/62 Pulse Oximetry 96 93 Oxygen Delivery Room Air Room Air 08/01/22 06:00 08/01/22 07:20 08/01/22 13:43 Temperature 97.5 F L 98.5 F Pulse Rate 85 85 Respiratory Rate 16 18 Blood Pressure 102/66 105/65 Pulse Oximetry 95 97 Oxygen Delivery Room Air Room Air 08/01/22 14:51 08/01/22 15:01 08/01/22 15:08 Temperature Pulse Rate 91 90 92 Respiratory Rate 18 18 18 Blood Pressure 106/72 104/70 107/71 Pulse Oximetry 91 97 97 Oxygen Delivery Room Air Room Air Room Air Intake/Output Intake/Output: Intake & Output 07/29/22 07/30/22 07/31/22 08/01/22 23:59 23:59 23:59 23:59 Intake Total 1502 1758 900 150 Output
[2022-08-01 17:20] LABS: Hematocrit 39.1 % (42.0-52.0); Hemoglobin 13.7 g/dL (14.0-18.0)
[2022-08-01] MEDS: WARFARIN (*PBKC) 5 MG TABLET PO (18:19)
[2022-08-01] MEDS: POTASSIUM CHLORIDE 20 MEQ TABLET PO ×2 (18:22→21:33)
[2022-08-01] MEDS: PROPRANOLOL HCL 10 MG TABLET PO (21:20)
[2022-08-01 21:57] VITALS: BP 108/75; PULSE 90; RESP 16; TEMP 37.2; O2SAT 96
[2022-08-02 05:18] VITALS: BP 97/69; PULSE 69; RESP 16; TEMP 36.2; O2SAT 98
[2022-08-02 06:44] LABS: INR 1.6; Prothrombin Time 18.4 Seconds (11.1-14.7)
[2022-08-02 06:53] LABS: Albumin Level 2.4 g/dL (3.5-5.1); Anion Gap 5 mmol/L (8-16); Blood Urea Nitrogen 43 mg/dL (9-20); Calcium 7.5 mg/dL (8.4-10.2); Carbon Dioxide 32 mmol/L (22-30); Chloride 90 mmol/L (98-107); Estimated CRCL calculation 57 ml/min; Estimated Glomerular Filt Rate 54; Glucose 79 mg/dL (65-110); Phosphorus 3.2 mg/dL (2.5-4.5); Potassium 3.3 mmol/L (3.4-5.0); Sodium 127 mmol/L (137-145)
[2022-08-02 08:22] VITALS: PULSE 68
[2022-08-02] MEDS: PROPRANOLOL HCL 10 MG TABLET PO ×2 (08:22→20:51)
[2022-08-02] MEDS: MIDODRINE HCL 2.5 MG TABLET PO ×3 (08:22→18:16)
[2022-08-02] MEDS: THERAPEUTIC MULTIVITAMINS/MINERALS TAB (*BKC) 1 TABLET PO (08:22)
[2022-08-02] MEDS: THIAMINE HCL 100 MG TABLET PO (08:22)
[2022-08-02] MEDS: NICOTINE (*PBKC) 21 MG PATCH 1 PATCH TRANSDERM (08:23)
[2022-08-02] MEDS: FOLIC ACID 1 MG TABLET PO (08:23)
[2022-08-02] MEDS: predniSONE 20 MG, predniSONE 10 MG 30 MG PO (08:23)
--- NOTE | 2022-08-02 09:04 | P.PNNP_ITS ---
Progress Note: A&P Assessment and Plan (1) CESARIO (acute kidney injury): Code(s): N17.9 - Acute kidney failure, unspecified Status: Acute Assessment and Plan: * acute kidney injury. * evaluation to date: * urine electrolytes prerenal -- due to volume depletion versus liver physiology versus both(?) * renal ultrasound unremarkable * urine eosinophils negative * CPK is normal * no proteinuria * low complements. This may be due to poor since this is due to the liver. * GBM, DNA, and Don antigen are negative. [place] lambda 1.4. * other serologies pending * CESARIO due to multiple factors such as pre renal azotemia and/or ATN. * Since he is better it is unlikely to be hepatorenal syndrome. * off IVFs at this time (suspect this may have worsened this ascites) * on midodrine (to see if a higher BP may help improve kidney function) -- unclear if helping or not * bp is still somewhat soft so will continue midodrine. * Creatinine is down to 1.5 * Will continue to follow on oral intake only. * follow repeat labs and UOP (2) Hyponatremia: Code(s): E87.1 - Hypo-osmolality and hyponatremia Status: Acute Assessment and Plan: * Hyponatremia. * acute versus chronic versus acute on chronic?? -- no previous labs for comparison * TSH and cortisol okay; serum/urine osmolality and SPEP/UPEP pending * no BASIC ACOUSTIC ANALYST symptoms/signs * CXR no sign of isues causing hyponatremia * no active cancer. * suspect chronic alcohol use in the setting of liver cirrhosis to blame -- however, cannot discount CESARIO playing a role as well * continue fluid restriction * Since he has plateaued, will enhance fluid restriction [id number]. * sodium stable. * on fluid restriction alone. (3) Acute hepatic failure: Qualifiers: Hepatic coma status: without hepatic coma Qualified Code(s): K72.00 - Acute and subacute hepatic failure without coma Code(s): K72.00 - Acute and subacute hepatic failure without coma Status: Acute Assessment and Plan: * quite severe on admission as noted by elevated LFTs, bilirubin, and ammonia level * on steroids on the hope this is acute alcohol hepatitis * Gastroenterology recommendations noted * EGD done. Grade 2 varices, reflux esophagitis and a superficial ulcer in the duodenal bulb. (4) Portal vein thrombosis: Code(s): I81 - Portal vein thrombosis Status: Acute Assessment and Plan: * as noted by imaging * INR elevated already (1.7) * back on heparin drip. (5) Alcohol abuse: Code(s): F10.10 - Alcohol abuse, uncomplicated Status: Acute Assessment and Plan: * on thiamine and folate * monitor for signs of withdrawal Will continue to follow. Subjective Date/time seen: 08/02/22 09:04 Interval history: patient feels okay. eating okay no cp or sob. Exam Narrative: General: WD/WN in NAD Heart: normal S1 and S2; no rub or gallop Lungs: clear Abdomen: soft with mild distension, positive bowel sounds Extremities: trace edema Skin: no rash or sq nodules Objective Data Vital Signs Vital Signs: Vital Signs - 24 hr 08/01/22 13:43 08/01/22 14:51 08/01/22 15:01 Temperature 98.5 F Pulse Rate 85 91 90 Respiratory Rate 18 18 18 Blood Pressure 105/65 106/72 104/70 Pulse Oximetry 97 91 97 Oxygen Del
--- NOTE | 2022-08-02 09:04 | PM.PNNEP ---
Progress Note: A&P Assessment and Plan (1) CESARIO (acute kidney injury): Code(s): N17.9 - Acute kidney failure, unspecified Status: Acute Assessment and Plan: acute kidney injury. evaluation to date: urine electrolytes prerenal -- due to volume depletion versus liver physiology versus both(?) renal ultrasound unremarkable urine eosinophils negative CPK is normal no proteinuria low complements. This may be due to poor since this is due to the liver. GBM, DNA, and Don antigen are negative. [place] lambda 1.4. other serologies pending CESARIO due to multiple factors such as pre renal azotemia and/or ATN. Since he is better it is unlikely to be hepatorenal syndrome. off IVFs at this time (suspect this may have worsened this ascites) on midodrine (to see if a higher BP may help improve kidney function) -- unclear if helping or not bp is still somewhat soft so will continue midodrine. Creatinine is down to 1.5 Will continue to follow on oral intake only. follow repeat labs and UOP (2) Hyponatremia: Code(s): E87.1 - Hypo-osmolality and hyponatremia Status: Acute Assessment and Plan: Hyponatremia. acute versus chronic versus acute on chronic?? -- no previous labs for comparison TSH and cortisol okay; serum/urine osmolality and SPEP/UPEP pending no WELT MAKER symptoms/signs CXR no sign of isues causing hyponatremia no active cancer. suspect chronic alcohol use in the setting of liver cirrhosis to blame -- however, cannot discount CESARIO playing a role as well continue fluid restriction Since he has plateaued, will enhance fluid restriction [id number]. sodium stable. on fluid restriction alone. (3) Acute hepatic failure: Qualifiers: Hepatic coma status: without hepatic coma Qualified Code(s): K72.00 - Acute and subacute hepatic failure without coma Code(s): K72.00 - Acute and subacute hepatic failure without coma Status: Acute Assessment and Plan: quite severe on admission as noted by elevated LFTs, bilirubin, and ammonia level on steroids on the hope this is acute alcohol hepatitis Gastroenterology recommendations noted EGD done. Grade 2 varices, reflux esophagitis and a superficial ulcer in the duodenal bulb. (4) Portal vein thrombosis: Code(s): I81 - Portal vein thrombosis Status: Acute Assessment and Plan: as noted by imaging INR elevated already (1.7) back on heparin drip. (5) Alcohol abuse: Code(s): F10.10 - Alcohol abuse, uncomplicated Status: Acute Assessment and Plan: on thiamine and folate monitor for signs of withdrawal Will continue to follow. Subjective Date/time seen: 08/02/22 09:04 Interval history: patient feels okay. eating okay no cp or sob. Exam Narrative: General: WD/WN in NAD Heart: normal S1 and S2; no rub or gallop Lungs: clear Abdomen: soft with mild distension, positive bowel sounds Extremities: trace edema Skin: no rash or sq nodules Objective Data Vital Signs Vital Signs: Vital Signs - 24 hr 08/01/22 13:43 08/01/22 14:51 08/01/22 15:01 Temperature 98.5 F Pulse Rate 85 91 90 Respiratory Rate 18 18 18 Blood Pressure 105/65 106/72 104/70 Pulse Oximetry 97 91 97 Oxygen Delivery Room Air Room Air Room Air 08/01/22 15:08 08/01/22 21:57 08/01/22 20:00 Temperature 98.9 F Pulse Rate 92 90 Respiratory Rate 18 16 Blood Pressure 107/71 108/75 Pulse Oximetry 97 96 Oxygen Delivery Room Air Room Air 08/02/22 05:18 08/02/22 08:22 Temperature 97.2 F L Pulse Rate 69 68 Respiratory Rate 16 Blood Pressure 97/69 L Pulse Oximetry 98 Oxygen Delivery Intake/Output Intake/Output: Intake & Output 07/30/22 07/31/22 08/01/22 08/02/22 23:59 23:59 23:59 23:59 Intake Total 1758 900 490 540 Output Total 800 Balance 958 900 490 540 Meds/Results Medications: Active Me
[2022-08-02 10:13] LABS: Hematocrit 36.6 % (42.0-52.0); Hemoglobin 12.9 g/dL (14.0-18.0); Mean Corpuscular HGB Conc 35.2 g/dl (32-36); Mean Corpuscular Hemoglobin 35.2 pg (26-34); Mean Platelet Volume 10.5 fl (7.4-10.4); Platelet Count Result 112 k/mm3 (150-375); Red Blood Count 3.66 M/mm3 (4.6-6.20); Red Cell Distribution Width 18.4 % (11.5-14.5); White Blood Count 10.8 K/mm3 (4.5-10.0)
--- NOTE | 2022-08-02 10:13 | WPDANESPN ---
Anes - Prog Note Post-Op Date/Time: 08/02/22 10:13 Cardiovascular status: normal Respiratory status: normal Airway patency: baseline Mental status: baseline Post-Op hydration status: normal Vital Signs: Last Vital Signs Temp 97.2 F L 08/02/22 05:18 Pulse 68 08/02/22 08:22 Resp 16 08/02/22 05:18 BP 97/69 L 08/02/22 05:18 Pulse Ox 98 08/02/22 05:18 O2 Del Method Room Air 08/01/22 20:00 Pain Score (VAS): 0/10 I/O: Intake & Output 08/01/22 08/02/22 08/02/22 23:59 07:59 15:59 Intake Total 340 540 Balance 340 540 Laboratory Tests 08/02/22 05:48 07/27/22 08/01/22 08/01/22 03:28 05:54 16:50 WBC 12.9 H RBC 3.46 L Hgb 12.1 L 13.7 L Hct 33.8 L 39.1 L MCV 97.7 MCH 35.0 H MCHC 35.8 RDW 18.3 H Plt Count 119 L MPV 10.4 PT INR Sodium Potassium Chloride Carbon Dioxide Anion Gap BUN Creatinine Estim Creat Clear Calc Estimated GFR Glucose Calcium Phosphorus Albumin Glomerular Base Memb Ab <1.0 Tot Complement (CH50) 26 L 08/01/22 08/02/22 08/02/22 16:50 05:45 05:48 WBC Pending RBC Pending Hgb Pending Hct Pending MCV Pending MCH Pending MCHC Pending RDW Pending Plt Count Pending MPV Pending PT 18.4 H INR 1.6 Sodium Potassium 3.0 L Chloride Carbon Dioxide Anion Gap BUN Creatinine Estim Creat Clear Calc Estimated GFR Glucose Calcium Phosphorus Albumin Glomerular Base Memb Ab Tot Complement (CH50) 08/02/22 05:48 WBC RBC Hgb Hct MCV MCH MCHC RDW Plt Count MPV PT INR Sodium 127 L Potassium 3.3 L Chloride 90 L Carbon Dioxide 32 H Anion Gap 5 L BUN 43 H Creatinine 1.50 H Estim Creat Clear Calc 57 Estimated GFR 54 L Glucose 79 Calcium 7.5 L Phosphorus 3.2 Albumin 2.4 L Glomerular Base Memb Ab Tot Complement (CH50) Microbiology 07/27/22 14:09 Paracentesis Fluid Anaerobic Culture - Preliminary 07/27/22 14:09 Paracentesis Fluid Aerobic Culture - Final Post-procedural complaints: none Patient Feedback: Patient satisfied with anesthetic care.
[2022-08-02 11:50] LABS: Anion Gap 6 mmol/L (8-16); Blood Urea Nitrogen 41 mg/dL (9-20); Calcium 7.9 mg/dL (8.4-10.2); Carbon Dioxide 31 mmol/L (22-30); Chloride 91 mmol/L (98-107); Estimated CRCL calculation 57 ml/min; Estimated Glomerular Filt Rate 54; Glucose 113 mg/dL (65-110); Potassium 3.5 mmol/L (3.4-5.0); Sodium 128 mmol/L (137-145)
--- NOTE | 2022-08-02 12:23 | P.PNIM_ITS ---
Progress Note: A&P Assessment and Plan (1) Acute hepatic failure: Qualifiers: Hepatic coma status: without hepatic coma Qualified Code(s): K72.00 - Acute and subacute hepatic failure without coma Code(s): K72.00 - Acute and subacute hepatic failure without coma Status: Acute Assessment and Plan: * Resolved. It wasquite severe on admission as noted by elevated LFTs, bilirubin, and ammonia level * bleeding noted on dressing at ascites. Side. 0 UA reassuring. CBC from this morning pending. Repeat hemoglobin and hematocrit. Currently patient asymptomatic; no dizziness or lightheadedness. He is not tachycardic. He does not a appear to be in shock. * currently being managed with steroids on the hope this is acute alcohol hepatitis * EGD noted * Bilirubin is improving slowly * Ammonia level normal * AST/ALT/Alk phos only mildly elevated. * Improvement of albumin at 2.5. (2) CESARIO (acute kidney injury): Code(s): N17.9 - Acute kidney failure, unspecified Status: Acute Assessment and Plan: * improvement noted * appears to have peaked/plateaued 3.6mg/dl. Creatinine is improving slowly down to 1.9 today. * unclear baseline renal function -- assuming normal prior to admission * suspect a component of prerenal azotemia (since only source of nutrition had been alcohol) * monitor electrolytes and kidney function. (3) Hyponatremia: Code(s): E87.1 - Hypo-osmolality and hyponatremia Status: Acute Assessment and Plan: * slow improvement noted as well; now the serum sodium has been fluctuating between 125 and 127. Continue management per Nephrology. * acute versus chronic versus acute on chronic?? -- no previous labs for comparison * this is further complicated by his CESARIO and presumed acute liver injury (4) Portal vein thrombosis: Code(s): I81 - Portal vein thrombosis Status: Acute Assessment and Plan: * as noted by imaging * INR elevated already * Heparin on hold out of concern for possible internal bleeding. Hemoglobin is stable. Will resume heparin drip (5) Alcohol abuse: Code(s): F10.10 - Alcohol abuse, uncomplicated Status: Acute Assessment and Plan: * on thiamine and folate * monitor for signs of withdrawal * Patient instructed about importance of abstinence Will continue to follow. Subjective Date/time seen: 08/02/22 12:23 feeling better. No new complaints. Abdominal pain much improved. Afebrile Exam Narrative: General: WD/WN in NAD Heart: normal S1 and S2; no rub Lungs: clear to auscultation Abdomen: soft with mild distension, positive bowel sounds Extremities: no cyanosis or clubbing; trace edema Skin: warm and dry Objective Data Vital Signs Vital Signs: Vital Signs - 24 hr 08/01/22 13:43 08/01/22 14:51 08/01/22 15:01 Temperature 98.5 F Pulse Rate 85 91 90 Respiratory Rate 18 18 18 Blood Pressure 105/65 106/72 104/70 Pulse Oximetry 97 91 97 Oxygen Delivery Room Air Room Air Room Air 08/01/22 15:08 08/01/22 21:57 08/01/22 20:00 Temperature 98.9 F Pulse Rate 92 90 Respiratory Rate 18 16 Blood Pressure 107/71 108/75 Pulse Oximetry 97 96 Oxygen Delivery Room Air Room Air 08/02/22 05:18 08/02/22 08:22 08/02/22 08:00
--- NOTE | 2022-08-02 12:23 | PM.IMPN ---
Progress Note: A&P Assessment and Plan (1) Acute hepatic failure: Qualifiers: Hepatic coma status: without hepatic coma Qualified Code(s): K72.00 - Acute and subacute hepatic failure without coma Code(s): K72.00 - Acute and subacute hepatic failure without coma Status: Acute Assessment and Plan: Resolved. It wasquite severe on admission as noted by elevated LFTs, bilirubin, and ammonia level bleeding noted on dressing at ascites. Side. 0 UA reassuring. CBC from this morning pending. Repeat hemoglobin and hematocrit. Currently patient asymptomatic; no dizziness or lightheadedness. He is not tachycardic. He does not a appear to be in shock. currently being managed with steroids on the hope this is acute alcohol hepatitis EGD noted Bilirubin is improving slowly Ammonia level normal AST/ALT/Alk phos only mildly elevated. Improvement of albumin at 2.5. (2) CESARIO (acute kidney injury): Code(s): N17.9 - Acute kidney failure, unspecified Status: Acute Assessment and Plan: improvement noted appears to have peaked/plateaued 3.6mg/dl. Creatinine is improving slowly down to 1.9 today. unclear baseline renal function -- assuming normal prior to admission suspect a component of prerenal azotemia (since only source of nutrition had been alcohol) monitor electrolytes and kidney function. (3) Hyponatremia: Code(s): E87.1 - Hypo-osmolality and hyponatremia Status: Acute Assessment and Plan: slow improvement noted as well; now the serum sodium has been fluctuating between 125 and 127. Continue management per Nephrology. acute versus chronic versus acute on chronic?? -- no previous labs for comparison this is further complicated by his CESARIO and presumed acute liver injury (4) Portal vein thrombosis: Code(s): I81 - Portal vein thrombosis Status: Acute Assessment and Plan: as noted by imaging INR elevated already Heparin on hold out of concern for possible internal bleeding. Hemoglobin is stable. Will resume heparin drip (5) Alcohol abuse: Code(s): F10.10 - Alcohol abuse, uncomplicated Status: Acute Assessment and Plan: on thiamine and folate monitor for signs of withdrawal Patient instructed about importance of abstinence Will continue to follow. Subjective Date/time seen: 08/02/22 12:23 feeling better. No new complaints. Abdominal pain much improved. Afebrile Exam Narrative: General: WD/WN in NAD Heart: normal S1 and S2; no rub Lungs: clear to auscultation Abdomen: soft with mild distension, positive bowel sounds Extremities: no cyanosis or clubbing; trace edema Skin: warm and dry Objective Data Vital Signs Vital Signs: Vital Signs - 24 hr 08/01/22 13:43 08/01/22 14:51 08/01/22 15:01 Temperature 98.5 F Pulse Rate 85 91 90 Respiratory Rate 18 18 18 Blood Pressure 105/65 106/72 104/70 Pulse Oximetry 97 91 97 Oxygen Delivery Room Air Room Air Room Air 08/01/22 15:08 08/01/22 21:57 08/01/22 20:00 Temperature 98.9 F Pulse Rate 92 90 Respiratory Rate 18 16 Blood Pressure 107/71 108/75 Pulse Oximetry 97 96 Oxygen Delivery Room Air Room Air 08/02/22 05:18 08/02/22 08:22 08/02/22 08:00 Temperature 97.2 F L Pulse Rate 69 68 Respiratory Rate 16 Blood Pressure 97/69 L Pulse Oximetry 98 Oxygen Delivery Room Air Intake/Output Intake/Output: Intake & Output 07/30/22 07/31/22 08/01/22 08/02/22 23:59 23:59 23:59 23:59 Intake Total 1758 900 490 660 Output Total 800 Balance 958 900 490 660 Meds/Results Medications: Active Medications Generic Name Dose Route Start Last Admin Trade Name Brianq PRN Reason Stop Dose Admin Folic Acid 1 mg 07/27/22 09:00 08/02/22 08:23 Folic Acid 1 Mg Tablet PO 1 mg DAILY JERRY Administration Ceftriaxone Sodium/Dextrose 1 gm in 50 mls @ 100 mls/hr 08/01/22 18:00 08/01/22
[2022-08-02 12:47] LABS: Basophils Percent Auto 0.2 % (0.2-1.2); Eosinophils Absolute Auto 0.1 K/mm3 (0-0.3); Eosinophils Percent Auto 0.6 % (0-4.4); Hemoglobin 13.1 g/dL (14.0-18.0); Immature Granulocyte Absolute 0.25 K/mm3 (0.00-0.031); Immature Granulocyte Percent A 1.8 % (0-0.5); Immature Platelet Fraction Pct 5.6 % (0.9-11.2); Lymphocytes Absolute Auto 1.01 K/mm3 (0.9-3.2); Lymphocytes Percent Auto 7.2 % (18.3-44.2); Mean Corpuscular HGB Conc 35.4 g/dl (32-36); Mean Corpuscular Hemoglobin 34.6 pg (26-34); Mean Corpuscular Volume 97.6 fl (80-100); Mean Platelet Volume 10.1 fl (7.4-10.4); Monocytes Absolute Auto 1.5 K/mm3 (0.1-0.6); Monocytes Percent Auto 10.7 % (2.6-8.5); Neutrophils Absolute Auto 11.2 K/mm3 (1.3-6.7); Neutrophils Percent Auto 79.5 % (45.5-73.1); Platelet Count Result 147 k/mm3 (150-375); Red Blood Count 3.79 M/mm3 (4.6-6.20); Red Cell Distribution Width 17.9 % (11.5-14.5); White Blood Count 14.1 K/mm3 (4.5-10.0)
[2022-08-02 12:55] LABS: INR 1.6; Prothrombin Time 18.6 Seconds (11.1-14.7)
[2022-08-02 12:56] LABS: Partial Thromboplastin Time 32.4 SECONDS (22.3-36.8)
[2022-08-02] MEDS: HEPARIN SOD/D5W 100 UNITS/ML 25,000 UNITS/250 ML BAG 15 UNITS IV CONT (13:19)
[2022-08-02] MEDS: HEPARIN SODIUM 5,000 UNITS/ML VIAL 5500 UNITS IV PUSH (13:24)
[2022-08-02 14:00] VITALS: BP 98/72; PULSE 75; RESP 18; TEMP 36.9; O2SAT 93
[2022-08-02 19:51] LABS: Amylase Peritoneal Fluid <10 U/L
[2022-08-02 20:51] VITALS: PULSE 78
[2022-08-02 21:08] LABS: Partial Thromboplastin Time > 200.0 SECONDS (22.3-36.8)
[2022-08-02 21:51] VITALS: BP 95/70; PULSE 72; RESP 16; TEMP 36.6; O2SAT 96
[2022-08-03 05:38] VITALS: BP 97/63; PULSE 66; RESP 16; TEMP 36.4; O2SAT 98
[2022-08-03 05:56] LABS: Basophils Percent Auto 0.2 % (0.2-1.2); Eosinophils Absolute Auto 0.2 K/mm3 (0-0.3); Eosinophils Percent Auto 1.4 % (0-4.4); Hematocrit 33.5 % (42.0-52.0); Hemoglobin 12.2 g/dL (14.0-18.0); Immature Granulocyte Percent A 1.9 % (0-0.5); Immature Platelet Fraction Pct 5.4 % (0.9-11.2); Lymphocytes Absolute Auto 2.44 K/mm3 (0.9-3.2); Lymphocytes Percent Auto 15.1 % (18.3-44.2); Mean Corpuscular HGB Conc 36.4 g/dl (32-36); Mean Corpuscular Hemoglobin 34.6 pg (26-34); Mean Corpuscular Volume 94.9 fl (80-100); Mean Platelet Volume 10.4 fl (7.4-10.4); Monocytes Absolute Auto 2.2 K/mm3 (0.1-0.6); Monocytes Percent Auto 13.5 % (2.6-8.5); Neutrophils Percent Auto 67.9 % (45.5-73.1); Platelet Count Result 125 k/mm3 (150-375); Red Blood Count 3.53 M/mm3 (4.6-6.20); Red Cell Distribution Width 18.1 % (11.5-14.5); White Blood Count 16.1 K/mm3 (4.5-10.0)
[2022-08-03 06:05] LABS: Alanine Aminotransferase 104 U/L (6-50); Albumin Level 2.3 g/dL (3.5-5.1); Alkaline Phosphatase 158 U/L (38-126); Anion Gap 4 mmol/L (8-16); Aspartate Amino Transferase 119 U/L (17-59); Bilirubin,Total 6.2 mg/dL (0.2-1.3); Blood Urea Nitrogen 38 mg/dL (9-20); Calcium 7.5 mg/dL (8.4-10.2); Carbon Dioxide 31 mmol/L (22-30); Chloride 92 mmol/L (98-107); Estimated CRCL calculation 61 ml/min; Estimated Glomerular Filt Rate 58; Glucose 102 mg/dL (65-110); Potassium 3.3 mmol/L (3.4-5.0); Sodium 127 mmol/L (137-145)
[2022-08-03 06:21] LABS: Partial Thromboplastin Time > 200.0 SECONDS (22.3-36.8)
[2022-08-03 06:23] LABS: INR 2.2; Prothrombin Time 23.2 Seconds (11.1-14.7)
--- NOTE | 2022-08-03 07:10 | WPDGIPROGNO ---
Progress Note: A&P Assessment and Plan (1) Acute hepatic failure: Qualifiers: Hepatic coma status: without hepatic coma Qualified Code(s): K72.00 - Acute and subacute hepatic failure without coma Code(s): K72.00 - Acute and subacute hepatic failure without coma Status: Acute Assessment and Plan: he has elevation of his bilirubin, pro time, transaminases and also ammonia level. We can hope that this is acute alcoholic hepatitis and that these parameters will improve. It will take a few days before it is clear Whether that is the case. He has been started on prednisone 40 mg daily. 07/29/2022 transaminases had improved but are holding steady now, virtually unchanged from yesterday 07/31/2022 He has been on prednisone 40 mg per day. I think that we have reached the optimum benefit of that. I will begin a taper. (2) Hepatorenal syndrome: Code(s): K76.7 - Hepatorenal syndrome Status: Acute Assessment and Plan: Creatinine is over 3. He is being seen by Nephrology. his creatinine is stable at 3. 6 07/31/2022 creatinine down to 2.5 as of yesterday. Today's level is pending 08/03/2022 creatinine is down to 1.4. . 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 nephrology is managing his fluids and electrolytes. 07/29/2022 BUN is actually little higher, 48. Creatinine however trending lower at 3.0 managed by Nephrology. His creatinine is coming down although BUN is still over 50. (4) Serum total bilirubin elevated: Code(s): R17 - Unspecified jaundice Status: Acute Assessment and Plan: Yesterday bilirubin was 10.1. Up to 11 today he denies pruritus. Hepatitis serology has been done and is negative. 07/27/2022 bilirubin has dropped to 9.0 07/28/2022 bilirubin continues to drop, 7.5 today 07/29/2022 bilirubin stable at 7.6. 07/31/2022 no further change in bilirubin. This will probably be his normal (5) Portal vein thrombosis: Code(s): I81 - Portal vein thrombosis Status: Acute Assessment and Plan: this has been discussed with Dr. Jean-Baptiste. Although he does have a prolonged protime. Is felt that heparin, at least the somewhat low does would be helpful to help with his portal vein thrombosis, if it is acute he has shown no signs of bleeding so far. The plan is to perform an EGD with treatment if any indicated of esophageal varices. Because of his hyponatremia however anesthesia feels that he is at too great a risk for the procedure today sodium is up to 123 but Anesthesia still refuses to sedate him. It is unlikely his sodium will go much higher than the mid 120s as is the case with many cirrhotic. 07/31/2022 sodium is finally up--127-- therefore it should be okay to proceed with EGD tomorrow 08/03/20 he remains on heparin. His APT was where than 200 on 2 occasions last evening-- this resulted in bleeding from the IV site. (6) Alcohol abuse: Code(s): F10.10 - Alcohol abuse, uncomplicated Status: Acute Assessment and Plan: He does admit to drinking most of the day in the fact that is his primary source of nutrition. He eats very little, never breakfast or lunch. He is alert this morning but we will need to continue to observe for possible hepatorenal syndrome. (7) Acute hyponatremia: Code(s): E87.1 - Hypo-osmolality and hyponatremia Status: Acute Assessment and Plan: Initial sodium was 117. Today it is up to 121 07/27/2022 his sodium unfortunately has dropped back down to 119. Consequently EGD is canceled. 07/31/2022 the sodium is up to 127 probably this will probably be as high as it goes. (8) Ascites: Code(s): R18.8 - Other ascites Status: Acute
[2022-08-03] MEDS: THERAPEUTIC MULTIVITAMINS/MINERALS TAB (*BKC) 1 TABLET PO (09:09)
[2022-08-03] MEDS: predniSONE 20 MG, predniSONE 10 MG 30 MG PO (09:09)
[2022-08-03] MEDS: MIDODRINE HCL 2.5 MG TABLET PO ×3 (09:10→18:49)
[2022-08-03] MEDS: THIAMINE HCL 100 MG TABLET PO (09:10)
[2022-08-03] MEDS: FOLIC ACID 1 MG TABLET PO (09:11)
[2022-08-03] MEDS: NICOTINE (*PBKC) 21 MG PATCH 1 PATCH TRANSDERM (09:11)
[2022-08-03 13:25] LABS: Hematocrit 37.8 % (42.0-52.0); Hemoglobin 13.3 g/dL (14.0-18.0); Mean Corpuscular HGB Conc 35.2 g/dl (32-36); Mean Corpuscular Hemoglobin 34.7 pg (26-34); Mean Corpuscular Volume 98.7 fl (80-100); Mean Platelet Volume 10.4 fl (7.4-10.4); Platelet Count Result 146 k/mm3 (150-375); Red Blood Count 3.83 M/mm3 (4.6-6.20); Red Cell Distribution Width 18.3 % (11.5-14.5); White Blood Count 15.9 K/mm3 (4.5-10.0)
[2022-08-03 14:00] VITALS: BP 92/62; PULSE 74; RESP 16; TEMP 36.5; O2SAT 94
[2022-08-03 14:05] LABS: Partial Thromboplastin Time > 200.0 SECONDS (22.3-36.8)
--- NOTE | 2022-08-03 17:16 | P.PNNP_ITS ---
Progress Note: A&P Assessment and Plan (1) CESARIO (acute kidney injury): Code(s): N17.9 - Acute kidney failure, unspecified Status: Acute Assessment and Plan: * acute kidney injury. * evaluation to date: * urine electrolytes prerenal -- due to volume depletion versus liver physiology versus both(?) * renal ultrasound unremarkable * urine eosinophils negative * CPK is normal * no proteinuria * low complements. This may be due to poor since this is due to the liver. * GBM, DNA, and Don antigen are negative. [place] lambda 1.4. * other serologies pending * CESARIO due to multiple factors such as pre renal azotemia and/or ATN. * Creatinine has improved gradually. Now creatinine is 1.4. * Now he has more swelling and his belly is still mildly distended. will try Lasix and albumin to see if we can mobilize the fluid. This may also help his hyponatremia (2) Hyponatremia: Code(s): E87.1 - Hypo-osmolality and hyponatremia Status: Acute Assessment and Plan: * Hyponatremia. * acute versus chronic versus acute on chronic?? 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 * Etiology includes alcohol use in the setting of liver cirrhosis, pre renal factors, and CESARIO playing a role as well * sodium stable. still in the high 120s. * on fluid restriction alone. * Will see what happens with the sodium trying albumin Lasix. His albumin will mobilize some fluid possibly the pre renal aspect of the low sodium will improvement sodium will rise. (3) Acute hepatic failure: Qualifiers: Hepatic coma status: without hepatic coma Qualified Code(s): K72.00 - Acute and subacute hepatic failure without coma Code(s): K72.00 - Acute and subacute hepatic failure without coma Status: Acute Assessment and Plan: * quite severe on admission as noted by elevated LFTs, bilirubin, and ammonia level * on steroids on the hope this is acute alcohol hepatitis * Gastroenterology recommendations noted * EGD done. Grade 2 varices, reflux esophagitis and a superficial ulcer in the duodenal bulb. (4) Portal vein thrombosis: Code(s): I81 - Portal vein thrombosis Status: Acute Assessment and Plan: * as noted by imaging * INR elevated already (2.2) * back on heparin drip. (5) Alcohol abuse: Code(s): F10.10 - Alcohol abuse, uncomplicated Status: Acute Assessment and Plan: * on thiamine and folate * monitor for signs of withdrawal Will continue to follow. Subjective Date/time seen: 08/03/22 07:10 Interval history: patient feels okay. eating okay but not a great appetite no cp or sob. Exam Narrative: General: WD/WN in NAD Heart: normal S1 and S2; no rub or gallop Lungs: clear Abdomen: soft with mild distension, positive bowel sounds. Extremities: 1+ bilateral edema Skin: no rash or sq nodules Objective Data Vital Signs Vital Signs: Vital Signs - 24 hr 08/02/22 20:51 08/02/22 21:51 08/02/22 20:00 Temperature 97.9 F Pulse Rate 78 72 Respiratory Rate 16 Blood Pressure 95/70 L Pulse Oximetry 96 Oxygen Delivery Room Air 08/03/22 05:38 08/03
--- NOTE | 2022-08-03 17:16 | PM.PNNEP ---
Progress Note: A&P Assessment and Plan (1) CESARIO (acute kidney injury): Code(s): N17.9 - Acute kidney failure, unspecified Status: Acute Assessment and Plan: acute kidney injury. evaluation to date: urine electrolytes prerenal -- due to volume depletion versus liver physiology versus both(?) renal ultrasound unremarkable urine eosinophils negative CPK is normal no proteinuria low complements. This may be due to poor since this is due to the liver. GBM, DNA, and Don antigen are negative. [place] lambda 1.4. other serologies pending CESARIO due to multiple factors such as pre renal azotemia and/or ATN. Creatinine has improved gradually. Now creatinine is 1.4. Now he has more swelling and his belly is still mildly distended. will try Lasix and albumin to see if we can mobilize the fluid. This may also help his hyponatremia (2) Hyponatremia: Code(s): E87.1 - Hypo-osmolality and hyponatremia Status: Acute Assessment and Plan: Hyponatremia. acute versus chronic versus acute on chronic?? 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 Etiology includes alcohol use in the setting of liver cirrhosis, pre renal factors, and CESARIO playing a role as well sodium stable. still in the high 120s. on fluid restriction alone. Will see what happens with the sodium trying albumin Lasix. His albumin will mobilize some fluid possibly the pre renal aspect of the low sodium will improvement sodium will rise. (3) Acute hepatic failure: Qualifiers: Hepatic coma status: without hepatic coma Qualified Code(s): K72.00 - Acute and subacute hepatic failure without coma Code(s): K72.00 - Acute and subacute hepatic failure without coma Status: Acute Assessment and Plan: quite severe on admission as noted by elevated LFTs, bilirubin, and ammonia level on steroids on the hope this is acute alcohol hepatitis Gastroenterology recommendations noted EGD done. Grade 2 varices, reflux esophagitis and a superficial ulcer in the duodenal bulb. (4) Portal vein thrombosis: Code(s): I81 - Portal vein thrombosis Status: Acute Assessment and Plan: as noted by imaging INR elevated already (2.2) back on heparin drip. (5) Alcohol abuse: Code(s): F10.10 - Alcohol abuse, uncomplicated Status: Acute Assessment and Plan: on thiamine and folate monitor for signs of withdrawal Will continue to follow. Subjective Date/time seen: 08/03/22 07:10 Interval history: patient feels okay. eating okay but not a great appetite no cp or sob. Exam Narrative: General: WD/WN in NAD Heart: normal S1 and S2; no rub or gallop Lungs: clear Abdomen: soft with mild distension, positive bowel sounds. Extremities: 1+ bilateral edema Skin: no rash or sq nodules Objective Data Vital Signs Vital Signs: Vital Signs - 24 hr 08/02/22 20:51 08/02/22 21:51 08/02/22 20:00 Temperature 97.9 F Pulse Rate 78 72 Respiratory Rate 16 Blood Pressure 95/70 L Pulse Oximetry 96 Oxygen Delivery Room Air 08/03/22 05:38 08/03/22 14:00 Temperature 97.6 F 97.7 F Pulse Rate 66 74 Respiratory Rate 16 16 Blood Pressure 97/63 L 92/62 L Pulse Oximetry 98 94 Oxygen Delivery Intake/Output Intake/Output: Intake & Output 07/31/22 08/01/22 08/02/22 08/03/22 23:59 23:59 23:59 23:59 Intake Total 002 460 8953 481 Output Total 300 Balance 749 812 1688 181 Meds/Results Medications: Active Medications Generic Name Dose Route Start Last Admin Trade Name Freq PRN Reason Stop Dose Admin Folic Acid 1 mg 07/27/22 09:00 08/03/22 09:11 Folic Acid 1 Mg Tablet PO 1 mg DAILY JERRY Administration Heparin Sodium (Porcine) 5,500 units 08/02
--- NOTE | 2022-08-03 18:07 | P.PNIM_ITS ---
Progress Note: A&P Assessment and Plan (1) Acute hepatic failure: Qualifiers: Hepatic coma status: without hepatic coma Qualified Code(s): K72.00 - Acute and subacute hepatic failure without coma Code(s): K72.00 - Acute and subacute hepatic failure without coma Status: Ruled-out Assessment and Plan: * Resolved. It wasquite severe on admission as noted by elevated LFTs, bilirubin, and ammonia level * bleeding noted on dressing at ascites. Side. 0 UA reassuring. CBC from this morning pending. Repeat hemoglobin and hematocrit. Currently patient asymptomatic; no dizziness or lightheadedness. He is not tachycardic. He does not a appear to be in shock. * currently being managed with steroids on the hope this is acute alcohol hepatitis * EGD noted * Bilirubin is improving slowly * Ammonia level normal * AST/ALT/Alk phos only mildly elevated. * Improvement of albumin at 2.5. 08/03/2022 interval history: patient remains clinically stable, his juaundice is improving, patient was placed on heparin for portal hypertension thrombosis, there was concern for bleeding as patient has liver failure, Patient with CESARIO seen by Dr. Calixto suspect 2/2 pre-renal azotemia and/or ATN, remains clinically stable, will continue to monitor. (2) CESARIO (acute kidney injury): Onset Date: ~07/2022 Code(s): N17.9 - Acute kidney failure, unspecified Status: Inactive Assessment and Plan: * improvement noted * appears to have peaked/plateaued 3.6mg/dl. Creatinine is improving slowly down to 1.9 today. * unclear baseline renal function -- assuming normal prior to admission * suspect a component of prerenal azotemia (since only source of nutrition had been alcohol) * monitor electrolytes and kidney function. (3) Hyponatremia: Onset Date: ~07/2022 Code(s): E87.1 - Hypo-osmolality and hyponatremia Status: Acute Assessment and Plan: * slow improvement noted as well; now the serum sodium has been fluctuating between 125 and 127. Continue management per Nephrology. * acute versus chronic versus acute on chronic?? -- no previous labs for comparison * this is further complicated by his CESARIO and presumed acute liver injury (4) Portal vein thrombosis: Onset Date: ~07/2022 Code(s): I81 - Portal vein thrombosis Status: Acute Assessment and Plan: * as noted by imaging * INR elevated already * Heparin on hold out of concern for possible internal bleeding. Hemoglobin is stable. Will resume heparin drip (5) Alcohol abuse: Code(s): F10.10 - Alcohol abuse, uncomplicated Status: Acute Assessment and Plan: * on thiamine and folate * monitor for signs of withdrawal * Patient instructed about importance of abstinence Will continue to follow. Subjective Date/time seen: 08/03/22 18:07 * ? Resolved.? It wasquite severe on admission as noted by elevated LFTs, bilirubin, and ammonia level * ?bleeding noted on dressing at ascites.? Side.? 0 UA reassuring.? CBC from this morning pending.? Repeat hemoglobin and hematocrit.? Currently patient asymptomatic; no dizziness or lightheadedness.? He is not tachycardic.? He does not a appear to be in shock. * ?currently being managed with steroids on the hope this is acute alcohol hepatitis * ?EGD noted * Bilirubin is improving slowly * Ammonia level normal * AST/ALT/Alk phos only mildly elevated. * Improvement of albumin at 2.5. 08/03/2022 interval history: patient remains clinically stable, his juaundice is improving, patient was p
--- NOTE | 2022-08-03 18:07 | PM.IMPN ---
Progress Note: A&P Assessment and Plan (1) Acute hepatic failure: Qualifiers: Hepatic coma status: without hepatic coma Qualified Code(s): K72.00 - Acute and subacute hepatic failure without coma Code(s): K72.00 - Acute and subacute hepatic failure without coma Status: Ruled-out Assessment and Plan: Resolved. It wasquite severe on admission as noted by elevated LFTs, bilirubin, and ammonia level bleeding noted on dressing at ascites. Side. 0 UA reassuring. CBC from this morning pending. Repeat hemoglobin and hematocrit. Currently patient asymptomatic; no dizziness or lightheadedness. He is not tachycardic. He does not a appear to be in shock. currently being managed with steroids on the hope this is acute alcohol hepatitis EGD noted Bilirubin is improving slowly Ammonia level normal AST/ALT/Alk phos only mildly elevated. Improvement of albumin at 2.5. 08/03/2022 interval history: patient remains clinically stable, his juaundice is improving, patient was placed on heparin for portal hypertension thrombosis, there was concern for bleeding as patient has liver failure, Patient with CESARIO seen by Dr. Calixto suspect 2/2 pre-renal azotemia and/or ATN, remains clinically stable, will continue to monitor. (2) CESARIO (acute kidney injury): Onset Date: ~07/2022 Code(s): N17.9 - Acute kidney failure, unspecified Status: Inactive Assessment and Plan: improvement noted appears to have peaked/plateaued 3.6mg/dl. Creatinine is improving slowly down to 1.9 today. unclear baseline renal function -- assuming normal prior to admission suspect a component of prerenal azotemia (since only source of nutrition had been alcohol) monitor electrolytes and kidney function. (3) Hyponatremia: Onset Date: ~07/2022 Code(s): E87.1 - Hypo-osmolality and hyponatremia Status: Acute Assessment and Plan: slow improvement noted as well; now the serum sodium has been fluctuating between 125 and 127. Continue management per Nephrology. acute versus chronic versus acute on chronic?? -- no previous labs for comparison this is further complicated by his CESARIO and presumed acute liver injury (4) Portal vein thrombosis: Onset Date: ~07/2022 Code(s): I81 - Portal vein thrombosis Status: Acute Assessment and Plan: as noted by imaging INR elevated already Heparin on hold out of concern for possible internal bleeding. Hemoglobin is stable. Will resume heparin drip (5) Alcohol abuse: Code(s): F10.10 - Alcohol abuse, uncomplicated Status: Acute Assessment and Plan: on thiamine and folate monitor for signs of withdrawal Patient instructed about importance of abstinence Will continue to follow. Subjective Date/time seen: 08/03/22 18:07 ? Resolved.? It wasquite severe on admission as noted by elevated LFTs, bilirubin, and ammonia level ?bleeding noted on dressing at ascites.? Side.? 0 UA reassuring.? CBC from this morning pending.? Repeat hemoglobin and hematocrit.? Currently patient asymptomatic; no dizziness or lightheadedness.? He is not tachycardic.? He does not a appear to be in shock. ?currently being managed with steroids on the hope this is acute alcohol hepatitis ?EGD noted Bilirubin is improving slowly Ammonia level normal AST/ALT/Alk phos only mildly elevated. Improvement of albumin at 2.5. 08/03/2022 interval history: patient remains clinically stable, his juaundice is improving, patient was placed on heparin for portal hypertension thrombosis, there was concern for bleeding as patient has liver failure, Patient with CESARIO seen by Dr. Calixto suspect 2/2 pre-renal azotemia and/or ATN, remains clinically stable, will continue to monitor. Review of Systems Review of Systems: All systems reviewed & are unremarkable except as noted in HPI and below Exam Narrative: Patient is comfortable, NAD
[2022-08-03 19:55] LABS: ANCA Screen Negative (Negative)
[2022-08-03 20:00] VITALS: BP 123/69; PULSE 80; RESP 17; TEMP 36.3; O2SAT 93
[2022-08-03 20:19] VITALS: PULSE 76
[2022-08-03] MEDS: FUROSEMIDE INJ 40 MG/4 ML VIAL IV PUSH (20:21)
[2022-08-03] MEDS: ALBUMIN HUMAN 25% 25 GM/100 ML 100 ML IVPB (20:21)
[2022-08-03 20:58] LABS: Albumin Peritoneal Fluid 0.2 g/dL
[2022-08-04 00:26] LABS: Alanine Aminotransferase 91 U/L (6-50); Albumin Level 2.6 g/dL (3.5-5.1); Alkaline Phosphatase 125 U/L (38-126); Anion Gap 4 mmol/L (8-16); Aspartate Amino Transferase 110 U/L (17-59); Bilirubin,Total 5.1 mg/dL (0.2-1.3); Blood Urea Nitrogen 40 mg/dL (9-20); Calcium 7.5 mg/dL (8.4-10.2); Carbon Dioxide 33 mmol/L (22-30); Chloride 89 mmol/L (98-107); Estimated CRCL calculation 61 ml/min; Estimated Glomerular Filt Rate 58; Glucose 131 mg/dL (65-110); Potassium 3.4 mmol/L (3.4-5.0); Sodium 126 mmol/L (137-145)
[2022-08-04 02:27] LABS: Partial Thromboplastin Time > 200.0 SECONDS (22.3-36.8)
[2022-08-04 03:36] VITALS: BP 96/52; PULSE 80; RESP 18; TEMP 36.1; O2SAT 95
[2022-08-04 07:53] LABS: Hematocrit 31.4 % (42.0-52.0); Hemoglobin 11.1 g/dL (14.0-18.0); Immature Platelet Fraction Pct 5.1 % (0.9-11.2); Mean Corpuscular HGB Conc 35.4 g/dl (32-36); Mean Corpuscular Hemoglobin 35.1 pg (26-34); Mean Corpuscular Volume 99.4 fl (80-100); Mean Platelet Volume 10.5 fl (7.4-10.4); Platelet Count Result 118 k/mm3 (150-375); Red Blood Count 3.16 M/mm3 (4.6-6.20); Red Cell Distribution Width 18.5 % (11.5-14.5); White Blood Count 12.4 K/mm3 (4.5-10.0)
[2022-08-04 08:03] LABS: Albumin Level 2.3 g/dL (3.5-5.1); Anion Gap 3 mmol/L (8-16); Blood Urea Nitrogen 37 mg/dL (9-20); Calcium 7.5 mg/dL (8.4-10.2); Carbon Dioxide 31 mmol/L (22-30); Chloride 92 mmol/L (98-107); Estimated CRCL calculation 70 ml/min; Estimated Glomerular Filt Rate > 60; Glucose 100 mg/dL (65-110); INR 1.8; Phosphorus 3.5 mg/dL (2.5-4.5); Potassium 3.2 mmol/L (3.4-5.0); Prothrombin Time 20.1 Seconds (11.1-14.7); Sodium 126 mmol/L (137-145)
[2022-08-04 08:05] LABS: Partial Thromboplastin Time 119.5 SECONDS (22.3-36.8)
[2022-08-04] MEDS: predniSONE 20 MG, predniSONE 10 MG 30 MG PO (08:48)
[2022-08-04] MEDS: FUROSEMIDE INJ 40 MG/4 ML VIAL IV PUSH ×2 (08:48→21:31)
[2022-08-04 08:49] VITALS: PULSE 80
[2022-08-04] MEDS: ALBUMIN HUMAN 25% 25 GM/100 ML 100 ML IVPB ×2 (08:49→21:31)
[2022-08-04] MEDS: POTASSIUM CHLORIDE 20 MEQ TABLET PO (08:49)
[2022-08-04] MEDS: PROPRANOLOL HCL 10 MG TABLET PO (08:49)
[2022-08-04] MEDS: THIAMINE HCL 100 MG TABLET PO (08:49)
[2022-08-04] MEDS: SPIRONOLACTONE 50 MG TABLET PO (08:49)
[2022-08-04] MEDS: FOLIC ACID 1 MG TABLET PO (08:49)
[2022-08-04] MEDS: THERAPEUTIC MULTIVITAMINS/MINERALS TAB (*BKC) 1 TABLET PO (08:49)
[2022-08-04] MEDS: MIDODRINE HCL 2.5 MG TABLET PO ×3 (08:50→17:37)
[2022-08-04] MEDS: NICOTINE (*PBKC) 21 MG PATCH 1 PATCH TRANSDERM (08:50)
[2022-08-04] MEDS: HEPARIN SOD/D5W 100 UNITS/ML 25,000 UNITS/250 ML BAG 6 UNITS IV CONT (08:50)
[2022-08-04 09:31] LABS: Alanine Aminotransferase 90 U/L (6-50); Albumin Level 2.3 g/dL (3.5-5.1); Alkaline Phosphatase 111 U/L (38-126); Aspartate Amino Transferase 103 U/L (17-59); Bilirubin Direct 0.3 mg/dL (0-0.3); Bilirubin,Total 4.8 mg/dL (0.2-1.3)
--- NOTE | 2022-08-04 13:33 | P.PNIM_ITS ---
Progress Note: A&P Assessment and Plan (1) Acute hepatic failure: Qualifiers: Hepatic coma status: without hepatic coma Qualified Code(s): K72.00 - Acute and subacute hepatic failure without coma Code(s): K72.00 - Acute and subacute hepatic failure without coma Status: Ruled-out Assessment and Plan: * Resolved. It wasquite severe on admission as noted by elevated LFTs, bilirubin, and ammonia level * bleeding noted on dressing at ascites. Side. 0 UA reassuring. CBC from this morning pending. Repeat hemoglobin and hematocrit. Currently patient asymptomatic; no dizziness or lightheadedness. He is not tachycardic. He does not a appear to be in shock. * currently being managed with steroids on the hope this is acute alcohol hepatitis * EGD noted * Bilirubin is improving slowly * Ammonia level normal * AST/ALT/Alk phos only mildly elevated. * Improvement of albumin at 2.5. 08/04/2022 interval history: patient remains clinically stable, his juaundice is improving, today his total bill is 4.8 patient was placed on heparin for portal hypertension thrombosis, there was concern for bleeding as patient has liver failure, heparin was stopped, Patient with CESARIO Scr is improving today 1.[address] Calixto suspect 2/2 pre-renal azotemia and/or ATN, remains clinically stable, will continue to monitor. (2) CESARIO (acute kidney injury): Onset Date: ~07/2022 Code(s): N17.9 - Acute kidney failure, unspecified Status: Inactive Assessment and Plan: * improvement noted * appears to have peaked/plateaued 3.6mg/dl. Creatinine is improving slowly down to 1.9 today. * unclear baseline renal function -- assuming normal prior to admission * suspect a component of prerenal azotemia (since only source of nutrition had been alcohol) * monitor electrolytes and kidney function. (3) Hyponatremia: Onset Date: ~07/2022 Code(s): E87.1 - Hypo-osmolality and hyponatremia Status: Acute Assessment and Plan: * slow improvement noted as well; now the serum sodium has been fluctuating between 125 and 127. Continue management per Nephrology. * acute versus chronic versus acute on chronic?? -- no previous labs for comparison * this is further complicated by his CESARIO and presumed acute liver injury (4) Portal vein thrombosis: Onset Date: ~07/2022 Code(s): I81 - Portal vein thrombosis Status: Acute Assessment and Plan: * as noted by imaging * INR elevated already * Heparin on hold out of concern for possible internal bleeding. Hemoglobin is stable. Will resume heparin drip (5) Alcohol abuse: Code(s): F10.10 - Alcohol abuse, uncomplicated Status: Acute Assessment and Plan: * on thiamine and folate * monitor for signs of withdrawal * Patient instructed about importance of abstinence Will continue to follow. Subjective Date/time seen: 08/04/22 13:33 * Resolved. It wasquite severe on admission as noted by elevated LFTs, bilirubin, and ammonia level * bleeding noted on dressing at ascites. Side. 0 UA reassuring. CBC from this morning pending. Repeat hemoglobin and hematocrit. Currently patient asymptomatic; no dizziness or lightheadedness. He is not tachycardic. He does not a appear to be in shock. * currently being managed with steroids on the hope this is acute alcohol hepatitis * EGD noted * Bilirubin is improving slowly * Ammonia level normal * AST/ALT/Alk phos only mildly elevated. * Improvement of albumin at 2.5. 08/04/2022 interval history
--- NOTE | 2022-08-04 13:33 | PM.IMPN ---
Progress Note: A&P Assessment and Plan (1) Acute hepatic failure: Qualifiers: Hepatic coma status: without hepatic coma Qualified Code(s): K72.00 - Acute and subacute hepatic failure without coma Code(s): K72.00 - Acute and subacute hepatic failure without coma Status: Ruled-out Assessment and Plan: Resolved. It wasquite severe on admission as noted by elevated LFTs, bilirubin, and ammonia level bleeding noted on dressing at ascites. Side. 0 UA reassuring. CBC from this morning pending. Repeat hemoglobin and hematocrit. Currently patient asymptomatic; no dizziness or lightheadedness. He is not tachycardic. He does not a appear to be in shock. currently being managed with steroids on the hope this is acute alcohol hepatitis EGD noted Bilirubin is improving slowly Ammonia level normal AST/ALT/Alk phos only mildly elevated. Improvement of albumin at 2.5. 08/04/2022 interval history: patient remains clinically stable, his juaundice is improving, today his total bill is 4.8 patient was placed on heparin for portal hypertension thrombosis, there was concern for bleeding as patient has liver failure, heparin was stopped, Patient with CESARIO Scr is improving today 1.[address] Calixto suspect 2/2 pre-renal azotemia and/or ATN, remains clinically stable, will continue to monitor. (2) CESARIO (acute kidney injury): Onset Date: ~07/2022 Code(s): N17.9 - Acute kidney failure, unspecified Status: Inactive Assessment and Plan: improvement noted appears to have peaked/plateaued 3.6mg/dl. Creatinine is improving slowly down to 1.9 today. unclear baseline renal function -- assuming normal prior to admission suspect a component of prerenal azotemia (since only source of nutrition had been alcohol) monitor electrolytes and kidney function. (3) Hyponatremia: Onset Date: ~07/2022 Code(s): E87.1 - Hypo-osmolality and hyponatremia Status: Acute Assessment and Plan: slow improvement noted as well; now the serum sodium has been fluctuating between 125 and 127. Continue management per Nephrology. acute versus chronic versus acute on chronic?? -- no previous labs for comparison this is further complicated by his CESARIO and presumed acute liver injury (4) Portal vein thrombosis: Onset Date: ~07/2022 Code(s): I81 - Portal vein thrombosis Status: Acute Assessment and Plan: as noted by imaging INR elevated already Heparin on hold out of concern for possible internal bleeding. Hemoglobin is stable. Will resume heparin drip (5) Alcohol abuse: Code(s): F10.10 - Alcohol abuse, uncomplicated Status: Acute Assessment and Plan: on thiamine and folate monitor for signs of withdrawal Patient instructed about importance of abstinence Will continue to follow. Subjective Date/time seen: 08/04/22 13:33 Resolved. It wasquite severe on admission as noted by elevated LFTs, bilirubin, and ammonia level bleeding noted on dressing at ascites. Side. 0 UA reassuring. CBC from this morning pending. Repeat hemoglobin and hematocrit. Currently patient asymptomatic; no dizziness or lightheadedness. He is not tachycardic. He does not a appear to be in shock. currently being managed with steroids on the hope this is acute alcohol hepatitis EGD noted Bilirubin is improving slowly Ammonia level normal AST/ALT/Alk phos only mildly elevated. Improvement of albumin at 2.5. 08/04/2022 interval history: patient remains clinically stable, his juaundice is improving, today his total bill is 4.8 patient was placed on heparin for portal hypertension thrombosis, there was concern for bleeding as patient has liver failure, heparin was stopped, Patient with CESARIO Scr is improving today 1.[address] Calixto suspect 2/2 pre-renal azotemia and/or ATN, remains clinically stable, will continue to monitor. Review of Syste
[2022-08-04 13:59] VITALS: BP 103/70; PULSE 80; RESP 16; TEMP 36.1; O2SAT 95
[2022-08-04 15:37] LABS: Partial Thromboplastin Time 74.4 SECONDS (22.3-36.8)
[2022-08-04 20:00] VITALS: BP 108/74; PULSE 80; RESP 17; TEMP 36.6; O2SAT 98
--- NOTE | 2022-08-04 21:15 | P.PNNP_ITS ---
Progress Note: A&P Assessment and Plan (1) CESARIO (acute kidney injury): Code(s): N17.9 - Acute kidney failure, unspecified Status: Acute Assessment and Plan: * acute kidney injury. * evaluation to date: * urine electrolytes prerenal -- due to volume depletion versus liver physiology versus both(?) * renal ultrasound unremarkable * urine eosinophils negative * CPK is normal * no proteinuria * low complements. This may be due to poor since this is due to the liver. * GBM, DNA, and Don antigen are negative. [place] lambda 1.4. * other serologies pending * CESARIO due to multiple factors such as pre renal azotemia and/or ATN. * albumin helped u.o. and the creatinine is better as well. * creatinine is now down to normal. (2) Hyponatremia: Code(s): E87.1 - Hypo-osmolality and hyponatremia Status: Acute Assessment and Plan: * Hyponatremia. * acute versus chronic versus acute on chronic?? -- no previous labs for comparison * TSH and cortisol okay; serum/urine osmolality and SPEP/UPEP pending * no HIDE CURER symptoms/signs * CXR no sign of isues causing hyponatremia * no active cancer. * Etiology includes alcohol use in the setting of liver cirrhosis, pre renal factors, and CESARIO playing a role as well * sodium stable. still in the high 120s. * on fluid restriction alone. * will add salt tabs to lasix. * pt is looking much better. * home any time from the kidney standpoint when others are ready (3) Acute hepatic failure: Qualifiers: Hepatic coma status: without hepatic coma Qualified Code(s): K72.00 - Acute and subacute hepatic failure without coma Code(s): K72.00 - Acute and subacute hepatic failure without coma Status: Acute Assessment and Plan: * quite severe on admission as noted by elevated LFTs, bilirubin, and ammonia level * on steroids on the hope this is acute alcohol hepatitis * Gastroenterology recommendations noted * EGD done. Grade 2 varices, reflux esophagitis and a superficial ulcer in the duodenal bulb. (4) Portal vein thrombosis: Code(s): I81 - Portal vein thrombosis Status: Acute Assessment and Plan: * as noted by imaging * INR elevated already (2.2) * back on heparin drip. (5) Alcohol abuse: Code(s): F10.10 - Alcohol abuse, uncomplicated Status: Acute Assessment and Plan: * on thiamine and folate * monitor for signs of withdrawal Will continue to follow. Subjective Date/time seen: 08/04/22 21:15 Interval history: patient feels okay. he made a lot of urine last night. belly seems smaller. edema improved he says Exam Narrative: General: WD/WN in NAD Heart: normal S1 and S2; no rub or gallop Lungs: clear bilaterally Abdomen: soft with mild distension, positive bowel sounds. Extremities: 1+ bilateral edema Skin: no rash Objective Data Vital Signs Vital Signs: Vital Signs - 24 hr 08/04/22 03:36 08/04/22 08:49 08/04/22 08:00 Temperature 97 F L Pulse Rate 80 80 Respiratory Rate 18 Blood Pressure 96/52 L Pulse Oximetry 95 Oxygen Delivery Room Air 08/04/22 13:59 08/04/22 20:00 Temperature 97.0 F L 97.8 F Pulse Rate 80 80 Respiratory Rate 16 17 Blood Pressure 103/70 108/74 Pulse O
--- NOTE | 2022-08-04 21:15 | PM.PNNEP ---
Progress Note: A&P Assessment and Plan (1) CESARIO (acute kidney injury): Code(s): N17.9 - Acute kidney failure, unspecified Status: Acute Assessment and Plan: acute kidney injury. evaluation to date: urine electrolytes prerenal -- due to volume depletion versus liver physiology versus both(?) renal ultrasound unremarkable urine eosinophils negative CPK is normal no proteinuria low complements. This may be due to poor since this is due to the liver. GBM, DNA, and Don antigen are negative. [place] lambda 1.4. other serologies pending CESARIO due to multiple factors such as pre renal azotemia and/or ATN. albumin helped u.o. and the creatinine is better as well. creatinine is now down to normal. (2) Hyponatremia: Code(s): E87.1 - Hypo-osmolality and hyponatremia Status: Acute Assessment and Plan: Hyponatremia. acute versus chronic versus acute on chronic?? -- no previous labs for comparison TSH and cortisol okay; serum/urine osmolality and SPEP/UPEP pending no [employer]IAN symptoms/signs CXR no sign of isues causing hyponatremia no active cancer. Etiology includes alcohol use in the setting of liver cirrhosis, pre renal factors, and CESARIO playing a role as well sodium stable. still in the high 120s. on fluid restriction alone. will add salt tabs to lasix. pt is looking much better. home any time from the kidney standpoint when others are ready (3) Acute hepatic failure: Qualifiers: Hepatic coma status: without hepatic coma Qualified Code(s): K72.00 - Acute and subacute hepatic failure without coma Code(s): K72.00 - Acute and subacute hepatic failure without coma Status: Acute Assessment and Plan: quite severe on admission as noted by elevated LFTs, bilirubin, and ammonia level on steroids on the hope this is acute alcohol hepatitis Gastroenterology recommendations noted EGD done. Grade 2 varices, reflux esophagitis and a superficial ulcer in the duodenal bulb. (4) Portal vein thrombosis: Code(s): I81 - Portal vein thrombosis Status: Acute Assessment and Plan: as noted by imaging INR elevated already (2.2) back on heparin drip. (5) Alcohol abuse: Code(s): F10.10 - Alcohol abuse, uncomplicated Status: Acute Assessment and Plan: on thiamine and folate monitor for signs of withdrawal Will continue to follow. Subjective Date/time seen: 08/04/22 21:15 Interval history: patient feels okay. he made a lot of urine last night. belly seems smaller. edema improved he says Exam Narrative: General: WD/WN in NAD Heart: normal S1 and S2; no rub or gallop Lungs: clear bilaterally Abdomen: soft with mild distension, positive bowel sounds. Extremities: 1+ bilateral edema Skin: no rash Objective Data Vital Signs Vital Signs: Vital Signs - 24 hr 08/04/22 03:36 08/04/22 08:49 08/04/22 08:00 Temperature 97 F L Pulse Rate 80 80 Respiratory Rate 18 Blood Pressure 96/52 L Pulse Oximetry 95 Oxygen Delivery Room Air 08/04/22 13:59 08/04/22 20:00 Temperature 97.0 F L 97.8 F Pulse Rate 80 80 Respiratory Rate 16 17 Blood Pressure 103/70 108/74 Pulse Oximetry 95 98 Oxygen Delivery Intake/Output Intake/Output: Intake & Output 08/01/22 08/02/22 08/03/22 08/04/22 23:59 23:59 23:59 23:59 Intake Total 540 3209 256 9431 Output Total 300 800 Balance 540 1190 571 509 Meds/Results Medications: Active Medications Generic Name Dose Route Start Last Admin Trade Name Freq PRN Reason Stop Dose Admin Folic Acid 1 mg 07/27/22 09:00 08/04/22 08:49 Folic Acid 1 Mg Tablet PO 1 mg DAILY JERRY Administration Furosemide 40 mg 08/03/22 21:00 08/04/22 08:48 Furosemide Inj 40 Mg/4 Ml Vial IV PUSH 40 mg Q12HR JERRY Administration Heparin Sodium (Porcine) 5,500 units 08/02/22 12:26 Heparin Sodium 5,000
[2022-08-04] MEDS: HEPARIN SODIUM 5,000 UNITS/ML VIAL 5500 UNITS IV PUSH (21:26)
[2022-08-05 02:55] LABS: Hematocrit 27.7 % (42.0-52.0); Hemoglobin 9.5 g/dL (14.0-18.0); Immature Platelet Fraction Pct 5.2 % (0.9-11.2); Mean Corpuscular HGB Conc 34.3 g/dl (32-36); Mean Corpuscular Hemoglobin 35.2 pg (26-34); Mean Corpuscular Volume 102.6 fl (80-100); Mean Platelet Volume 10.5 fl (7.4-10.4); Platelet Count Result 126 k/mm3 (150-375); Red Cell Distribution Width 18.6 % (11.5-14.5); White Blood Count 11.4 K/mm3 (4.5-10.0)
[2022-08-05 03:08] LABS: INR 1.9; Prothrombin Time 21.4 Seconds (11.1-14.7)
[2022-08-05 03:17] LABS: Partial Thromboplastin Time 86.4 SECONDS (22.3-36.8)
[2022-08-05 03:19] LABS: Alanine Aminotransferase 76 U/L (6-50); Albumin Level 2.8 g/dL (3.5-5.1); Alkaline Phosphatase 100 U/L (38-126); Anion Gap 6 mmol/L (8-16); Aspartate Amino Transferase 84 U/L (17-59); Bilirubin,Total 4.3 mg/dL (0.2-1.3); Blood Urea Nitrogen 42 mg/dL (9-20); Calcium 7.9 mg/dL (8.4-10.2); Carbon Dioxide 32 mmol/L (22-30); Chloride 95 mmol/L (98-107); Estimated CRCL calculation 61 ml/min; Estimated Glomerular Filt Rate 58; Glucose 110 mg/dL (65-110); Magnesium 1.5 mg/dL (1.6-2.3); Phosphorus 3.2 mg/dL (2.5-4.5); Potassium 3.4 mmol/L (3.4-5.0); Sodium 133 mmol/L (137-145)
[2022-08-05 04:14] VITALS: BP 97/96; PULSE 88; RESP 18; TEMP 36.4; O2SAT 92
[2022-08-05] MEDS: ALBUMIN HUMAN 25% 25 GM/100 ML 100 ML IVPB (09:02)
[2022-08-05 09:05] VITALS: PULSE 88
[2022-08-05] MEDS: THERAPEUTIC MULTIVITAMINS/MINERALS TAB (*BKC) 1 TABLET PO (09:05)
[2022-08-05] MEDS: predniSONE 20 MG, predniSONE 10 MG 30 MG PO (09:05)
[2022-08-05] MEDS: SODIUM CHLORIDE 1 GM TABLET PO (09:05)
[2022-08-05] MEDS: MIDODRINE HCL 2.5 MG TABLET PO ×2 (09:05→12:28)
[2022-08-05] MEDS: PROPRANOLOL HCL 10 MG TABLET PO (09:05)
[2022-08-05] MEDS: THIAMINE HCL 100 MG TABLET PO (09:05)
[2022-08-05] MEDS: SPIRONOLACTONE 50 MG TABLET PO (09:05)
[2022-08-05] MEDS: POTASSIUM CHLORIDE 20 MEQ TABLET 40 MEQ PO (09:05)
[2022-08-05] MEDS: FOLIC ACID 1 MG TABLET PO (09:05)
[2022-08-05] MEDS: NICOTINE (*PBKC) 21 MG PATCH 1 PATCH TRANSDERM (09:06)
[2022-08-05 09:41] LABS: Partial Thromboplastin Time > 200.0 SECONDS (22.3-36.8)
[2022-08-05] MEDS: MAGNESIUM SULF 2 GM/WATER 50ML 2 GM/50 ML BAG IVPB (10:38)
[2022-08-05] MEDS: FUROSEMIDE INJ 40 MG/4 ML VIAL IV PUSH (10:38)
[2022-08-05] MEDS: MAGNESIUM OXIDE 400 MG TABLET PO (10:39)
[2022-08-05 14:00] VITALS: BP 102/64; PULSE 86; RESP 20; TEMP 37.1; O2SAT 93
--- NOTE | 2022-08-05 15:52 | PM.DS ---
DS: Admitting Diagnosis Discharge Date 08/05/2022 Admitting Diagnosis Abdominal bloating DS: Discharge Diagnosis Discharge Diagnosis (1) Acute hepatic failure: Qualifiers: Hepatic coma status: without hepatic coma Qualified Code(s): K72.00 - Acute and subacute hepatic failure without coma Code(s): K72.00 - Acute and subacute hepatic failure without coma Status: Ruled-out Assessment and Plan: Resolved. It wasquite severe on admission as noted by elevated LFTs, bilirubin, and ammonia level bleeding noted on dressing at ascites. Side. 0 UA reassuring. CBC from this morning pending. Repeat hemoglobin and hematocrit. Currently patient asymptomatic; no dizziness or lightheadedness. He is not tachycardic. He does not a appear to be in shock. currently being managed with steroids on the hope this is acute alcohol hepatitis EGD noted Bilirubin is improving slowly Ammonia level normal AST/ALT/Alk phos only mildly elevated. Improvement of albumin at 2.5. 08/04/2022 interval history: patient remains clinically stable, his juaundice is improving, today his total bill is 4.8 patient was placed on heparin for portal hypertension thrombosis, there was concern for bleeding as patient has liver failure, heparin was stopped, Patient with CESARIO Scr is improving today 1.[address] Calixto suspect 2/2 pre-renal azotemia and/or ATN, remains clinically stable, will continue to monitor. (2) CESARIO (acute kidney injury): Onset Date: ~07/2022 Code(s): N17.9 - Acute kidney failure, unspecified Status: Inactive Assessment and Plan: improvement noted appears to have peaked/plateaued 3.6mg/dl. Creatinine is improving slowly down to 1.9 today. unclear baseline renal function -- assuming normal prior to admission suspect a component of prerenal azotemia (since only source of nutrition had been alcohol) monitor electrolytes and kidney function. (3) Hyponatremia: Onset Date: ~07/2022 Code(s): E87.1 - Hypo-osmolality and hyponatremia Status: Acute Assessment and Plan: slow improvement noted as well; now the serum sodium has been fluctuating between 125 and 127. Continue management per Nephrology. acute versus chronic versus acute on chronic?? -- no previous labs for comparison this is further complicated by his CESARIO and presumed acute liver injury (4) Portal vein thrombosis: Onset Date: ~07/2022 Code(s): I81 - Portal vein thrombosis Status: Acute Assessment and Plan: as noted by imaging INR elevated already Heparin on hold out of concern for possible internal bleeding. Hemoglobin is stable. Will resume heparin drip (5) Alcohol abuse: Code(s): F10.10 - Alcohol abuse, uncomplicated Status: Acute Assessment and Plan: on thiamine and folate monitor for signs of withdrawal Patient instructed about importance of abstinence Will continue to follow. DS: Summary Hospital Course Reason for hospitalization: Chief Complaint: Abdominal bloating Narrative: 31-year-old male with past medical history of alcoholism who presented to the ER with abdominal bloating, nausea and vomiting.? The patient reports that he has had decreased appetite for 1 year.? He has had 2 weeks of increasing abdominal bloating.? He has tried to take Gas-X and MiraLax at home without relief in his symptoms.? He is having bowel movements every day but they are small and soft.? On exam patient is noted to have marked scleral icterus.? He reports that his friend selling a few days ago and did not notice that yellow eyes but reported that when his friend brought him to the ER today he did comment on his yellow eyes.? He denies any fevers or chills.? He reports that he has been having some mild discomfort in his right upper quadrant that radiates to his back that started 4-5 days ago.? The pain is aching in nature.? He has taken a few doses of ib
--- NOTE | 2022-08-05 22:35 | PM.PNNEP ---
Progress Note: A&P Assessment and Plan (1) CESARIO (acute kidney injury): Code(s): N17.9 - Acute kidney failure, unspecified Status: Acute Assessment and Plan: due to prerenal azotemia and ATN improved creatinine with albumin (2) Hyponatremia: Code(s): E87.1 - Hypo-osmolality and hyponatremia Status: Acute Assessment and Plan: sodium level up to 133 today. doing well with albumin as this improved renal perfusion (3) Acute hepatic failure: Qualifiers: Hepatic coma status: without hepatic coma Qualified Code(s): K72.00 - Acute and subacute hepatic failure without coma Code(s): K72.00 - Acute and subacute hepatic failure without coma Status: Acute Assessment and Plan: laennec's cirrhosis (4) Portal vein thrombosis: Code(s): I81 - Portal vein thrombosis Status: Acute Assessment and Plan: autoanticoagulated due to liver ds (5) Alcohol abuse: Code(s): F10.10 - Alcohol abuse, uncomplicated Status: Acute Assessment and Plan: advised to stop Subjective Date/time seen: 08/05/22 1:30pm Interval history: alert. he has a nose bleed. no cp or sob. eager for discharge Exam Narrative: WDWN in NAD skin no rash head ncat lungs clear cor reg no rub abd BS+ nontender, mildly distended, and soft ext no edema. Objective Data Vital Signs Vital Signs: Vital Signs - 24 hr 08/05/22 04:14 08/05/22 09:05 08/05/22 14:00 Temperature 97.6 F 98.7 F Pulse Rate 88 88 86 Respiratory Rate 18 20 Blood Pressure 97/96 L 102/64 Pulse Oximetry 92 93 Intake/Output Intake/Output: Intake & Output 08/02/22 08/03/22 08/04/22 08/05/22 23:59 23:59 23:59 23:59 Intake Total 0988 571 9668 886 Output Total 300 1100 950 Balance 1190 571 309 -64 Meds/Results Radiology Results: ITS Impressions Abdomen/Pelvis CT 07/25/22 15:27 IMPRESSION: 1. Diffuse hepatic steatosis with suggestion of subtle liver surface nodularity which raises some suspicion for cirrhosis who specificities decreased by the similar density of the liver to the surrounding small to moderate amount of ascites. 2. Diffuse colonic wall thickening which could be due to hepatic colopathy or colitis which could be infectious, inflammatory or less likely ischemic in etiology. 3. Subarticular sclerosis at the bilateral femoral heads suspicious for osteonecrosis. Abdomen Ultrasound 07/25/22 16:28 IMPRESSION: Hepatomegaly with cirrhosis. Portal venous thrombosis. Renal Ultrasound 07/26/22 22:02 IMPRESSION: Moderate ascites. Otherwise unremarkable renal sonogram findings. Chest X-Ray 07/27/22 07:06 IMPRESSION: 1. Mild atelectasis at the lung bases. 2. Small left pleural effusion. Paracentesis Ultrasound 07/27/22 15:08 IMPRESSION: 1. Successful ultrasound-guided paracentesis yielding 1750 mL of clear yellow fluid. Abdomen X-Ray 08/01/22 07:32 IMPRESSION: 1. Normal bowel gas pattern. Labs Labs: Laboratory Results - last 24 hr 08/05/22 08/05/22 08/05/22 02:19 02:22 02:22 WBC 11.4 H RBC 2.70 L Hgb 9.5 L Hct 27.7 L MCV 102.6 H MCH 35.2 H MCHC 34.3 RDW 18.6 H Plt Count 126 L MPV 10.5 H % Immature Plt Fraction 5.2 PT 21.4 H INR 1.9 APTT 86.4 H Sodium 133 L Potassium 3.4 Chloride 95 L Carbon Dioxide 32 H Anion Gap 6 L BUN 42 H Creatinine 1.40 H Estim Creat Clear Calc 61 Estimated GFR 58 L Glucose 110 Calcium 7.9 L Phosphorus 3.2 Magnesium 1.5 L Total Bilirubin 4.3 H AST 84 H ALT 76 H Alkaline Phosphatase 100 Total Protein 6.0 L Albumin 2.8 L 08/05/22 08/05/22 02:22 08:18 WBC RBC Hgb Hct MCV MCH MCHC RDW Plt Count MPV % Immature Plt Fraction PT INR APTT > 200.0 H* Sodium Potassium Chloride Carbon Dioxide Anion Gap BUN
== END 2022-08-05 17:39 | disposition home or self-care (01) | DRG 441 ==
LOC: ANHED 15:39 → ANHIMU 20:49 → ANH3MEDSUR 07-30 18:06
PROVIDERS: Chiropractor; Internal Medicine; Internal Medicine Gastroenterology; Internal Medicine Nephrology; Admitting Provider Family Medicine; Emergency Provider Emergency Medicine; Visit Provider Family Medicine
PROC: 0DJ08ZZ Inspection of Upper Intestinal Tract, Via Natural or Artificial Opening Endoscopic (ICD-10-PCS; CPT 43235; principal; 2022-08-01 15:00)
DX: K72.00 Acute and subacute hepatic failure without coma (principal); I81 Portal vein thrombosis; K76.7 Hepatorenal syndrome; N17.0 Acute kidney failure with tubular necrosis; E87.1 Hypo-osmolality and hyponatremia; M87.9 Osteonecrosis, unspecified; I85.00 Esophageal varices without bleeding; K70.31 Alcoholic cirrhosis of liver with ascites; E87.6 Hypokalemia; K21.00 Gastro-esophageal reflux disease with esophagitis, without bleeding; K26.9 Duodenal ulcer, unspecified as acute or chronic, without hemorrhage or perforation; F10.20 Alcohol dependence, uncomplicated; F17.210 Nicotine dependence, cigarettes, uncomplicated; Z20.822 Contact with and (suspected) exposure to COVID-19
CPT/HCPCS: 36415; 49083; 71045; 74018; 74176; 76705; 76775; 80048; 80053; 80069; 80074; 80076; 80307; 81001; 81050; 82042; 82104; 82140; 82150; 82248; 82390; 82436; 82533; 82550; 82570; 82595; 82607; 82728; 82746; 82945; 83520; 83540; 83550; 83615; 83690; 83735; 83883; 83930; 83935; 84100; 84132; 84155; 84156; 84157; 84165; 84166; 84295; 84300; 84443; 85014; 85018; 85025; 85027; 85055; 85610; 85730; 85999; 86036; 86038; 86039; 86140; 86160; 86162; 86225; 86235; 86704; 87040; 87070; 87075; 87081; 87086; 87205; 87636; 88104; 88108; 88305; 89051; 93306; 96365; 96366; 99285; A9270; J0696; J1644; J1650; J1940; J2001; J2543; J2704; J3475; J3480; J7030; J7050; J7120; J7512; P9047

== ENCOUNTER 2022-08-18 15:54 | Outpatient (CLI) | payer OTHER, SELFPAY ==
[2022-08-18 19:46] LABS: Basophils Absolute Auto 0.1 K/mm3 (0.0-0.1); Basophils Percent Auto 0.6 % (0.2-1.2); Eosinophils Absolute Auto 0.5 K/mm3 (0-0.3); Hematocrit 32.2 % (42.0-52.0); Hemoglobin 10.4 g/dL (14.0-18.0); Immature Granulocyte Absolute 0.07 K/mm3 (0.00-0.031); Immature Granulocyte Percent A 0.7 % (0-0.5); Lymphocytes Absolute Auto 1.54 K/mm3 (0.9-3.2); Mean Corpuscular HGB Conc 32.3 g/dl (32-36); Mean Corpuscular Hemoglobin 35.7 pg (26-34); Mean Corpuscular Volume 110.7 fl (80-100); Mean Platelet Volume 9.8 fl (7.4-10.4); Monocytes Absolute Auto 1.1 K/mm3 (0.1-0.6); Monocytes Percent Auto 11.3 % (2.6-8.5); Neutrophils Absolute Auto 6.4 K/mm3 (1.3-6.7); Neutrophils Percent Auto 66.4 % (45.5-73.1); Platelet Count Result 177 k/mm3 (150-375); Red Blood Count 2.91 M/mm3 (4.6-6.20); White Blood Count 9.7 K/mm3 (4.5-10.0)
[2022-08-18 20:23] LABS: Platelet Estimate Adequate (Adequate)
[2022-08-18 20:24] LABS: Macrocytosis 1+ (NORMAL); Schistocytes None Seen (NORMAL); Target Cells 1+ (NORMAL)
[2022-08-18 20:29] LABS: Alanine Aminotransferase 99 U/L (6-50); Alkaline Phosphatase 95 U/L (38-126); Anion Gap 1 mmol/L (8-16); Aspartate Amino Transferase 66 U/L (17-59); Bilirubin,Total 1.6 mg/dL (0.2-1.3); Blood Urea Nitrogen 32 mg/dL (9-20); Carbon Dioxide 33 mmol/L (22-30); Chloride 99 mmol/L (98-107); Estimated Glomerular Filt Rate > 60; Glucose 73 mg/dL (65-110); Potassium 3.9 mmol/L (3.4-5.0); Sodium 133 mmol/L (137-145)
== END 2022-08-18 15:55 | disposition home or self-care (01) ==
LOC: ANHGOSHLAB 15:56
PROVIDERS: Visit Provider Family Medicine
DX: K74.60 Unspecified cirrhosis of liver (principal); K76.7 Hepatorenal syndrome; R18.8 Other ascites; E87.1 Hypo-osmolality and hyponatremia
CPT/HCPCS: 36415; 80053; 85025

== ENCOUNTER 2025-03-13 09:25 | Outpatient (CLI) | payer OTHER, SELFPAY ==
--- OUTSIDE RECORDS SUMMARY | 2025-03-13 09:43 | XMS_ITS | Clinical Summary ---
Author Organization [facility] [place] [address] Address [address] [place] [address] Care Team Providers Care Data Analyst Etl Developer Name Role Phone Maged Rich MD Primary Care Provider Allergies No known active allergies Medications pantoprazole DR (PROTONIX) 40 mg EC tablet Take 1 tablet (40 mg total) by mouth 2 (two) times a day 12/19/2022 Active propranoloL (INDERAL) 10 mg tablet Take 1 tablet (10 mg total) by mouth every 12 (twelve) hours 12/17/2022 Active Active Problems Problem Noted Date Diagnosed Date Alcoholic cirrhosis of liver with ascites 2022 Assessment & Plan (12/28/2022 8:31 AM CDT): Micky Goel is a 32 yo male with hx of EtOH decompensated cirrhosis (+Ascites, -HE, -EV) from alcoholic hepatitis 07/2022 (now resolved). He is re-compensated from alcoholic hepatitis and has responded well to treatment, we are discontinuing his diuretics today. Congratulated patient on complete alcohol abstinence and smoking cessation. - Ascites: There is no ascites on MRI 10/21/2022 and none appreciated on today's exam: Patient can discontinue Aldactone 50 mg daily. - Varices: Small, non-bandable on EGD 07/2022; suspect this will improve with prolonged alcohol cessation; Blood pressure today stable, continue on Propanolol therapy for portal pressure management and Midodrine for hypotension. - HE: No clinical signs - PVT ruled out: MRI 10/21/2022 revealed patent hepatic and portal veins. - HCC screening: MRI 10/21/2022 showed no liver lesions. Will obtain Liver US at 6 months from previous imaging. - Immunity: Will check immune status to Hepatitis A/B today. - Lifestyle: avoid alcohol completely and possible hepatotoxins (herbal/dietary supplements). Limit acetaminophen to 2,000 mg/24h as needed. Currently, patient not having any alcohol cravings; don't suspect there will be benefit from AUD medical therapy. Informed patient to reach out to our office if anything changes we are happy to help. Patient to return in 6 months Medical History Medical History Date Comments Alcoholic cirrhosis of liver with ascites (HCC) Family History Medical History Relation Name Comments No Known Problems Brother No Known Problems Father No Known Problems Father's Brother No Known Problems Father's Sister No Known Problems Maternal Grandfather No Known Problems Maternal Grandmother No Known Problems Mother No Known Problems Mother's Brother No Known Problems Mother's Sister No Known Problems Other No Known Problems Paternal Grandfather No Known Problems Paternal Grandmother No Known Problems Sister Relation Name Status Comments Brother Father Father's Brother Father's Sister Maternal Grandfather Maternal Grandmother Mother Mother's Brother Mother's Sister Other Paternal Grandfather Paternal Grandmother Sister Social History Tobacco Use Types Packs/Day Years Used Date Smoking Tobacco: Former Cigarettes Tobacco Cessation:Counseling Given: Not Answered Personal Safety Answer Date Recorded Getting School Help Needed Not on file 08/17 Sex and Gender Information Value Date Recorded Sex Assigned at Not on file 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 Gender Identity Not on file Sexual Orientation Not on file Obstetrics History Last Filed Vital Signs Vital Sign Reading Time Taken Comments Blood Pressure 112/76 12/27/2022 9:06 AM CDT Pulse 62 12/27/2022 9:06 AM CDT Temperature 37 C (98.6 F) 12/27/2022 9:06 AM CDT Respiratory Rate - - Oxygen Saturation - - Inhaled Oxygen Concentration - - Weight 68.2 kg (150 lb 6.4 oz) 12/27/2022 9:06 A M CDT Height 168.9 cm (5' 6.5) 12/27/2022 9:06 AM CDT Body Mass Index 23.91 12/27/2022 9:06 AM CDT Plan of Treatment Health Maintenance Due Date Last Done Comments Depression Screening 1988 DTaP/Tdap/Td Vaccine (1 - Tdap) 1999 Varicella Vaccines (1 of 2 - 13+ 2-dose series) 2001 Regular Well Visit/Exam 18-64 2006 Pneumococcal vaccine <65 (1 of 2 - PCV) 2007 HPV Vaccines (1 - 3-dose SCDM series) 2015 Covid-19 Vaccine (2 - season) 2024 Influenza Vaccine (#1) 2025 Hepatitis B Screening Completed 2022 Hepatitis C Screening Completed 2022 Procedures Procedure Name Priority Date/Time Associated Diagnosis Comments HEPATITIS PANEL, ACUTE Routine 2022 2:15 PM PONY RIDE OPERATOR Alcoholic cirrhosis of liver with ascites (HCC) from Last 3 Months or Most Recently Relevant to Health Maintenance Results * Hepatitis panel, acute (2022 2:15 PM PONY RIDE OPERATOR) Hep A IgM Nonreactive Nonreactive [facility] Hep B core IgM Nonreactive Nonreactive [facility] Hep C Ab Nonreactive Nonreactive [facility] Comment:Antibodies to HCV no t detected. Does NOT exclude the possibility of recent exposure to HCV. Current interpretive data was last revised on 22 HepBsAg Nonreactive Nonreactive [facility] Blood 2022 2:15 PM PONY RIDE OPERATOR 2022 2:48 PM PONY RIDE OPERATOR us Kirk Banerjee MD LAB MICROBIOLOGY - GENERAL ORD ERABLES Final Result [facility] Department [place] [address] from Last 3 Months or Most Recently Relevant to Health Maintenance Insurance [facility] CHOICE PLUS [facility] HMO/PPO Address: [place] [address] [facility]/PPO Address: [place] [address] CHOICE PLUS [facility] HMO/PPO Address: [place] [address] Care Teams Data Analyst Etl Developer Relationship Specialty Start Date End Date Maged Rich MD PCP - General Family Practice 09/20/22
--- OUTSIDE RECORDS SUMMARY | 2025-03-13 09:43 | XMS_ITS | Referral Summary ---
Author Organization [facility] [place] [address] Address [address] [place] [address] Care Team Providers Care Database Administration Project Manager Name Role Phone Maged Rich MD Primary [...] help. 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 Gender Identity Not on file Sexual Orientation Not on file Last Filed Vital Signs Vital Sign Reading [...] 12/27/2022 9:06 AM CDT Plan of Treatment Not on file Procedures Procedure Name Priority Date/Time Associated Diagnosis Comments HEPATITIS PANEL, ACUTE Routine 2022 2:15 PM COMMERCIAL REAL ESTATE UNDERWRITER Alcoholic cirrhosis of liver with ascites (HCC) from Last 3 Months or Most Recently Relevant to Health Maintenance Results * Hepatitis panel, acute (2022 2:15 PM COMMERCIAL REAL ESTATE UNDERWRITER) Hep A IgM Nonreactive [facility] Hep B core IgM Nonreactive Nonreactive [facility] Hep C Ab Nonreactive [facility]reactive [facility] Comment:Antibodies to HCV no t detected. Does NOT exclude the possibility of recent exposure to HCV. Current interpretive data was last revised on 22 HepBsAg Nonreactive Nonreactive [facility] Blood 2022 2:15 PM COMMERCIAL REAL ESTATE UNDERWRITER 2022 2:48 PM COMMERCIAL REAL ESTATE UNDERWRITER Kirk Banerjee MD LAB MICROBIOLOGY - GENERAL ORD ERABLES Final Result [facility] [place] [address] from Last 3 Months or Most Recently Relevant to Health Maintenance Insurance [facility] CHOICE PLUS Care Teams Database Administration Project Manager Relationship Specialty Start Date End Date Maged Rich MD PCP - General Family Practice 09/20/22
[2025-03-13 13:06] LABS: Hematocrit 46.6 % (42.0-52.0); Hemoglobin 15.3 g/dL (14.0-18.0); Immature Granulocyte Percent A 0.5 % (0-0.5); Lymphocytes Absolute Auto 1.66 K/mm3 (0.9-3.2); Mean Corpuscular HGB Conc 32.8 g/dl (32-36); Mean Corpuscular Hemoglobin 28.7 pg (26-34); Mean Corpuscular Volume 87.4 fl (80-100); Nucleated Red Blood Cells Absolute Auto 0.000 K/mm3 (0.0-0.012); Nucleated Red Blood Cells Perc 0.0 % (0.0-0.2); Platelet Count Result 293 k/mm3 (150-375); Red Blood Count 5.33 M/mm3 (4.6-6.20); White Blood Count 6.4 K/mm3 (4.5-10.0)
[2025-03-13 13:15] LABS: Alanine Aminotransferase 30 U/L (6-50); Albumin Level 4.5 g/dL (3.5-5.1); Alkaline Phosphatase 80 U/L (38-126); Anion Gap 6 mmol/L (4-12); Aspartate Amino Transferase 42 U/L (17-59); Bilirubin,Total 0.6 mg/dL (0.2-1.3); Blood Urea Nitrogen 15 mg/dL (9-20); Calcium 9.6 mg/dL (8.4-10.2); Carbon Dioxide 26 mmol/L (22-30); Chloride 104 mmol/L (98-107); Cholesterol 199 mg/dL (0-200); Estimated Glomerular Filt Rate > 60; Glucose 95 mg/dL (65-110); HDL Direct 46 mg/dL; Potassium 4.7 mmol/L (3.4-5.0); Sodium 136 mmol/L (137-145); Total Protein 7.9 g/dL (6.3-8.2); Triglycerides 64 mg/dL (<150)
[2025-03-13 13:49] LABS: Thyroid Stimulating Hormone Reflex 1.810 uIU/mL (0.465-4.68)
[2025-03-13 13:59] LABS: Ferritin 49.60 ng/mL (17.9-464)
[2025-03-13 14:08] LABS: Vitamin B12 623.0 pg/mL (239-931)
== END 2025-03-13 09:26 | disposition home or self-care (01) ==
LOC: ANHGOSHLAB 09:26
PROVIDERS: PCP Family Medicine; Visit Provider Nurse Practitioner Family
DX: Z00.00 Encounter for general adult medical examination without abnormal findings (principal); R79.0 Abnormal level of blood mineral; E55.9 Vitamin D deficiency, unspecified
CPT/HCPCS: 36415; 80053; 80061; 82306; 82607; 82728; 84443; 85025